=== PATIENT | female | born 1945 | race African-American/Black ===

== ENCOUNTER 2024-03-10 18:47 | Emergency (ER) | payer OTHER ==
--- OUTSIDE RECORDS SUMMARY | 2024-03-10 18:56 | XMS REPORT | Continuity of Care Document ---
Author Name Unknown Address [address] [place] [address] [facility] [address] [place] [address] Care Team Providers Care Casket Assembler Name Role Phone Coni Garcia MD Primary Care Physician + IVA MATAMOROS Attending Clinician Unavaila CONI Rosario Attending Clinician Unavailable CONI GARCIA Attending Clinician Unavailable Coni Garcia MD Attending Clinician + [phone] ADELAIDA SALCEDO Attending Clinician UnavailADELAIDA Mahan Attending Clinician UnavailMorena Thomas PA-C Attending Clinician + Adelaida Salcedo MD Attending Clinician + Lashonda Hui Attending Clinician + [phone] YEN JANE Attending Clinician Unavailable YEN JANE Attending Clinician Unavailable ABBI ALFARO Attending Clinician Unavailab ABBI Stevenson Attending Clinician Unavailab Adelaida Hodges MD Attending Clinician +[phone] Doctor Unassigned, Gordo Attending Clinician U navailable LASHONDA PRESLEY Attending Clinician Unavailable Santiago Morris Attending Clinician + SANTIAGO COLLINS Attending Clinician Unavailable JABARI CLAYTON Attending Clinician Unavail able JABARI CLAYTON Attending Clinician Unavail able Jabari Clayton MD Attending Clinician [phone] Shiloh PARIKH, Iva Srinivasan Attending Clinician + [phone] Lab, Ang - Db Attending Clinician Unavailable ANEMIGUELITO LEEANN Attending Clinician Unavailable Anemiguelito GEOPHYSICAL ENGINEER, Leeann Attending Clinician [phone] Tony RT, Audrey C Attending Clinician Unavailab le Therapist, [facility] Respiratory Attending Clinician U Nishant Vega MD Attending Clinician + [phone] NISHANT WEBSTER Attending Clinician Unavaila GEOFF Menjivar Attending Clinician Unavailable Geoff Shi DO Attending Clinician [phone] Sunni DOCKERY, Diana Rees Attending Clinician Unavail able VIRGIE REEDER Attending Clinician Unavailable Hopper PAC, Wandy S Attending Clinician [phone] Óscar Newell MD Attending Clinician +[phone] Virgie Reeder MD Attending Clinician +[phone] MOISES KIM Attending Clinician Unavailhamilton Kim MD, Moises Mendoza Attending Clinician +- [phone] DIMA GARNICA Attending Clinician Unavailable DIMA GARNICA Attending Clinician Unavailable Only, [facility] Test Attending Clinician Unavailable 2, [facility] Lab Attending Clinician Unavailable Dima Garnica DO Attending Clinician +[phone] BILLY AMBRIZ Attending Clinician UnavailBilly Cuevas MD Attending Clinician +- [phone] Jeane Driscoll MD Attending Clinician +[phone] JEANE DRISCOLL Attending Clinician UnavailChicho Cabrera MD Attending Clinician +[phone] Janusz Tobar MD Attending Clinician +[phone] , [facility] Surg Spec Procedure Attending Clinician Unavailable JANUSZ TOBAR Attending Clinician Unavailable Pob, [facility] Lab Main Attending Clinician Unavailhamilton brown Nurse, [facility] Surgery Faculty Attending Clinician U Trinidad Sadler Attending Clinician [phone] TRINIDAD MCDONALD Attending Clinician Unavailable Lab, Adc Fam Pob I Attending Clinician Unavailab le Tech, [facility] Sleep Lab Attending Clinician UnavailBrock Kenney Attending Clinician YEN JANE Admitting Clinician Unavailable ABBI ALFARO Admitting Clinician Unavailab IVA Jaramillo K.HYenifer Admitting Clinician Unavaila CONI Rosario Admitting Clinician Unavailable VIRGIE REEDER Admitting Clinician Unavailable Virgie Reeder MD Admitting Clinician YEN JANE Admitting Clinician Unavailable LEEANN WEBBER Admitting Clinician Unavailable ADELAIDA SALCEDO Admitting Clinician UnavailJEANE Moore Admitting Clinician Unavailsonia downs Payers Payer Name Policy Type Policy Number Effective Date Expirati on Date Source [employer] MEDICARE ADVANTAGE [id number] 2011 00:00:00 MED[place] [id number] 2020 00:00:00 Problems Condition Name Condition Details Condition Category Status Onset Date Resolution Date Last Treatment Date Treating Clinician Comments Source Suprathera peutic INR Suprathera peutic INR Disease Active 2021-07 00:00: 00 [facility] Wheezing Wheezing Disease Active 2021-07 00:00: 00 [facility] Fatty liver Fatty liver Disease Active 01-18 00:00: 00 [facility] Low TSH level Low TSH level Disease Active 01-08 00:00: 00 [facility] Microscopi c hematuria Microscopi c hematuria Disease Active 01-08 00:00: 00 [facility] Degenerati ve arthritis of right shoulder region Degenerati ve arthritis of right shoulder region Disease Active - 00:00: 00 [facility] Chronic pain of both shoulders Chronic pain of both shoulders Disease Active 3- 00:00: 00 [facility] Chronic pain of both shoulders Chronic pain of both shoulders Disease Active 3- 00:00: 00 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 Vitamin D deficiency Vitamin D deficiency Disease Active 5- 00:00: 00 [facility] Asthma Asthma Disease Active 03-17 00:00: 00 [facility] Essential hypertensi on Essential hypertensi on Disease Active 03-17 00:00: 00 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 Chronic pain of lower extremity Chronic pain of lower extremity Disease Active 03-17 00:00: 00 Overview: Formattin g of this note might be different from the original. Bilateral , intermitt ent [facility] GERD (gastroeso phageal reflux disease) GERD (gastroeso phageal reflux disease) Disease Active 03-17 00:00: 00 [facility] Hyperchole sterolemia Hyperchole sterolemia Disease Active 03-17 00:00: 00 [facility] Warfarin anticoagul ation Warfarin anticoagul ation Disease Active 03-17 00:00: 00 [facility] DUNCAN (obstructi ve sleep apnea) DUNCAN (obstructi ve sleep apnea) Disease Active [facility] Allergies, Adverse Reactions, Alerts Allergy Name Allergy Type Status Severity Reaction(s) Onset Date Inactive Date Treating Clinician Comments Source BENZONAT ATE DRUG INGREDI Active Dizziness 12-26 00:00: 00 [facility] Benzonat ate Propensi ty to adverse reaction s Active Dizziness 12-26 00:00: 00 [facility] LISINOPR IL DRUG INGREDI Active Other-Cmnt 07-31 00:00: 00 [facility] Lisinopr il Propensi ty to adverse reaction s Active Other - See comments 07-31 00:00: [address] [facility] TRAMADOL DRUG INGREDI Active SOB 4-20 00:00: 00 [facility] Tramadol Propensi ty to adverse reaction s Active Shortness of Breath 420 00:00: 00 [facility] ASPIRIN DRUG INGREDI Active Swelling 03-17 00:00: 00 [facility] PENICILL IN DRUG INGREDI Active Swelling 03-17 00:00: 00 [facility] Aspirin Propensi ty to adverse reaction s Active Swelling 03-17 00:00: 00 [facility] Penicill in Propensi ty to adverse reaction s Active Swelling 03-17 00:00: 00 [facility] Family History Family Member Diagnosis Comments Start Date Stop Date Sourc e Natural [facility] Natural sister Heart [facility] Natural brother Asthma [facility] Natural brother Heart [facility] Natural father Other - see comments [facility] Social History Social Habit Start Date Stop Date Quantity Comments Source Gender identity [facility] History of tobacco use Chews Tobacco [facility] History of Social function 2024-02-23 00:00:00 2024-02-23 00:00:00 [facility] Alcoholic beverage intake 2024-02-23 00:00:00 2024-02-23 00:00:00 0 /d [facility] Alcohol intake 2023-10-09 00:00:00 2023-10-09 00:00:00 0 /d [facility] Exposure to SARS-CoV-2 (event) 2022-10-19 00:00:00 2022-10-29 09:40:00 Not sure [facility] Tobacco use and exposure 2021-01-07 00:00:00 2021-01-07 00:00:00 User of smokeless tobacco [facility] Sex assigned at 1946 00:00:00 1946 00:00:00 [facility] Smoking Status Start Date Stop Date Source Never smoked tobacco [facility] Medications Ordered Medication Name Filled Medication Name Start Date Stop Date Current Medication? Ordering Clinician Indication Dosage Frequency Signature (SIG) Comments Components Source ROSUVASTATI N 40 mg tablet 03-02 00:00: 00 Yes [id number] 40mg TAKE 1 TABLET BY MOUTH AT BEDTIME [facility] baclofen 10 mg tablet 02-22 00:00: 00 Yes [id number] 5mg Take 0.5-1 tablets by mouth 3 (three) times daily as needed for Pain (scale 4-6) (May make sleepy, do not use before driving). [facility] triamcinolo ne acetonide (KENALOG) injection 40 mg 02-17 15:45: 00 02-17 15:41 :00 No [id number] 40mg 40 mg, Intramuscu lar, ONCE, 1 dose, On Thu02/18/24 at 1045, Routine [facility] OMEPRAZOLE 20 mg capsule 02-15 00:00: 00 Yes [id number] 20mg Take 1 capsule by mouth in the morning [facility] ALBUTEROL 90 mcg/actuati on inhaler 02-09 00:00: 00 Yes [id number] INHALE 2 PUFFS BY MOUTH EVERY 6 HOURS NEEDED FOR WHEEZING AND FOR SHORTNESS OF BREATH [facility] iopamidol (ISOVUE 370-500 mL) injection 75 mL 01-31 12:15: 00 01-31 12:15 :00 No [id number] 75mL 75 mL, Intravenou s, ONCE, 1 dose, On Thu02/01/24 at 0715, Routine [facility] FENTanyl PF (SUBLIMAZE (PF)) injection 50 mcg 01-31 11:15: 00 01-31 10:35 :00 No 50ug 50 mcg, Slow IV Push, ONCE, 1 dose, On Thu02/01/24 at 0615, Routine [facility] ondansetron (ZOFRAN (PF)) injection 4 mg 01-31 10:15: 00 01-31 10:34 :00 No 4mg 4 mg, Slow IV Push, ONCE, 1 dose, On Thu02/01/24 at 0515, BUCK [facility] HYDROcodone -acetaminop hen 10-325 mg tablet 15 00:00: 00 02-08 04:59 :00 Yes [id number] 1{tbl} Take 1 tablet by mouth every 6 (six) hours as needed for Pain (scale 7-10) for up to 7 days. Indication s: acute pain [facility] HYDROcodone -acetaminop hen (NORCO 5) 5-325 mg tablet 1 tablet 01-30 13:00: 00 01-30 13:01 :00 No 1{tbl} 1 tablet, Oral, ONCE, 1 dose, On Thu01/31/24 at 0800, [facility] methocarbam oL (ROBAXIN) tablet 1,000 mg 01-30 13:00: 00 01-30 13:01 :00 No 1000mg 1,000 mg, Oral, ONCE, 1 dose, On Thu01/31/24 at 0800, [facility] methocarbam oL 750 mg tablet 01-30 00:00: 00 02-22 00:00 :00 No [id number] 750mg Take 1 tablet by mouth every 6 (six) hours as needed for Pain (scale 1-3). [facility] ALBUTEROL 90 mcg/actuati on inhaler 01-18 00:00: 00 02-09 00:00 :00 No [id number] 2{puff} INHALE 2 PUFFS BY MOUTH EVERY 6 HOURS NEEDED FOR WHEEZING OR SHORTNESS OF BREATH [facility] FLUTICASONE -SALMETEROL 500-50 mcg/dose inhalation disk 4-25 00:00: 00 Yes [id number] INHALE 1 DOSE BY MOUTH EVERY [address] [facility] triamcinolo ne acetonide (KENALOG) injection 40 mg 3-22 16:00: 00 10-08 14:48 :00 No [id number] [address] [facility] OMEPRAZOLE 20 mg capsule 2-09 00:00: 00 02-15 00:00 :00 No [id number] 20mg Take 1 capsule by mouth in the morning [facility] azithromyci n 250 mg tablet 08-14 00:00: 00 Yes [id number] Take 500 mg PO day 1, then 250 mg PO days [address] [facility] methylPREDN ISolone (MEDROL, MESSI,) 4 mg tablets 08-14 00:00: 00 02-17 00:00 :00 No [id number] Take by mouth SEE-INSTRU CTIONS. follow package directions [facility] NIFEdipine ER 60 mg tablet 07-20 00:00: 00 Yes [id number] 60mg Take 1 tablet by mouth in the morning. [facility] pregabalin (LYRICA) 25 mg capsule 2022-07 00:00: 00 Yes [id number] Take 1 capsule by mouth every evening for 7 days, then 1 capsule by mouth twice a day for 7 days, then 1 capsule every morning and two capsules every evening [facility] apixaban 5 mg tablet 2022-07 00:00: 00 Yes 5mg Take 1 tablet by mouth in the morning and 1 tablet in the evening. Indication s: coronary artery ectasia [facility] triamcinolo ne acetonide (KENALOG) injection 40 mg 2022-07 15:30: 00 05-15 14:31 :00 No [id number] [address] [facility] albuterol 90 mcg/actuati on inhaler 2022-07 00:00: 00 Yes [id number] 2{puff} Inhale 2 Puffs every 6 (six) hours as needed for Wheezing or Shortness of Breath. [facility] rosuvastati n 40 mg tablet 03-12 00:00: 00 Yes [id number] 40mg Take 1 tablet by mouth at bedtime. [facility] gabapentin 100 mg capsule 03-12 00:00: 00 04-13 00:00 :00 No [id number] 100mg Take 1 capsule by mouth at bedtime. Then increase by one capsule each evening up to 4 capsules by mouth at bedtime for foot pain [facility] NIFEdipine ER 60 mg tablet 8-14 00:00: 00 06-29 00:00 :00 No [id number] 60mg Take 1 tablet by mouth in the morning. [facility] sodium hyaluronate (viscosup) (ORTHOVISC) injection 30 mg 02-11 22:15: 00 02-11 21:18 :[id number] [facility] triamcinolo ne acetonide (KENALOG) injection 40 mg 02-11 22:15: 00 02-11 21:27 :[id number] [facility] triamcinolo ne acetonide (KENALOG) injection 40 mg 02-05 14:45: 00 02-06 02:44 :[id number] [facility] triamcinolo ne acetonide (KENALOG) injection 40 mg 02-05 05:00: 00 02-05 16:59 :[id number] [facility] albuterol 90 mcg/actuati on inhaler 01-26 00:00: 00 04-13 00:00 :00 No [id number] 2{puff} Inhale 2 Puffs every 6 (six) hours as needed for Wheezing or Shortness of Breath. [facility] Fluticasone -Salmeterol 500-50 mcg/dose inhalation disk 12-26 00:00: 00 Yes [id number] 1{puff} Inhale 1 Puff every 12 (twelve) hours. DOSE INCREASE [facility] omeprazole 20 mg capsule 12-26 00:00: 00 08-28 00:00 :00 No [id number] 20mg Take 1 capsule by mouth in the morning. [facility] apixaban 5 mg tablet 12-26 00:00: 00 06-29 00:00 :00 No 5mg Take 1 tablet by mouth in the morning and 1 tablet in the evening. Indication s: coronary artery ectasia [facility] NIFEDIPINE ER 60 mg tablet -24 00:00: 00 12-26 00:00 :00 No [id number] 60mg TAKE 1 TABLET BY MOUTH IN THE MORNING [facility] triamcinolo ne acetonide (KENALOG) injection 40 mg 09-25 16:15: 00 09-25 15:13 :[id number] [facility] NIFEdipine ER 60 mg tablet - 00:00: 00 12-10 00:00 :00 No [id number] 60mg Take 1 tablet by mouth in the morning. [facility] omeprazole 20 mg capsule 09-12 00:00: 00 12-26 00:00 :00 No [id number] 20mg Take 1 capsule by mouth in the morning. [facility] hydroCHLORO thiazide 12.5 mg tablet - 00:00: 00 10-03 00:00 :00 No [id number] 12.5mg Take 1 tablet by mouth in the morning. [facility] predniSONE 10 mg tablet - 00:00: 00 09-12 00:00 :00 No [id number] Take four tablets daily for three days, take three tablets daily for three days, take two tablets daily for three days, take one tablet daily for three days [facility] Codeine-Gua ifenesin 10-200 mg/5 mL Liqd -12 00:00: 00 09-12 00:00 :00 No 5mL Take 5 mL by mouth every 6 (six) hours as needed for Cough. Indication s: Cough [facility] chlorthalid one 25 mg tablet 2021-07 00:00: 00 07-31 00:00 :00 No [id number] 12.5mg Take 0.5 tablets by mouth in the morning. [facility] Codeine-Gua ifenesin 10-200 mg/5 mL Liqd 2021-07- 00:00: 00 07-19 05:59 :00 No 5mL Take 5 mL by mouth every 6 (six) hours as needed for Cough for up to 7 days. Indication s: Cough [facility] chlorthalid one 25 mg tablet 2021-07 00:00: 00 07-11 00:00 :00 No [id number] 25mg Take 1 tablet by mouth in the morning. [facility] tranexamic acid (CYKLOKAPRO N) 1,000 mg in NaCl 0.9% (NS) 250 mL infusion 2021-07 23:00: 00 07-10 23:39 :00 No 16mg/kg /h 16 mg/kg/hr ?89.4 kg (357.6 mL/hr), IV Infusion, ONCE, 1 dose, On [facility] 07/10/22 at 1700, Routine [facility] dexamethaso ne sod phos PF injection 10 mg 2021-07 22:15: 00 07-10 22:32 :00 No 10mg 10 mg, Slow IV Push, ONCE, 1 dose, On [facility] 07/10/22 at 1615, [address] [facility] cloNIDine 0.1 mg tablet 2021-07 00:00: 00 07-11 00:00 :00 No [id number] .1mg Take 1 tablet by mouth in the morning and 1 tablet in the evening. [facility] apixaban 5 mg tablet 2021-07 00:00: 00 12-26 00:00 :00 No 5mg Take 1 tablet by mouth in the morning and 1 tablet in the evening. Indication s: coronary artery ectasia [facility] Fluticasone -Salmeterol 500-50 mcg/dose inhalation disk 2021-07 00:00: 00 12-26 00:00 :00 No [id number] 1{puff} Inhale 1 Puff every 12 (twelve) hours. DOSE INCREASE [facility] benzonatate 200 mg capsule 2021-07 00:00: 00 07-11 00:00 :00 No [id number] 200mg Take 1 capsule by mouth 3 (three) times daily as needed for Cough. [facility] cephALEXin (KEFLEX) 500 mg capsule 2021-07 00:00: 00 07-05 05:59 :00 No [id number] 500mg Take 1 capsule by mouth in the morning and 1 capsule at noon and 1 capsule in the evening. Do all this for [address] [facility] azithromyci n 250 mg tablet 2021-07 00:00: 00 07-04 05:59 :00 No [id number] 250mg Take 1 tablet by mouth in the morning for 6 days. Take 500 mg day 1, then 250 mg days [address] [facility] methylPREDN ISolone 4 mg tablets 2021-07 00:00: 00 07-04 05:59 :00 No [id number] Take by mouth SEE-INSTRU CTIONS for 6 days. follow package directions [facility] dextrometho cecil-jaden enesin (ROBITUSSIN DM) 10-100 mg/5 mL solution 5 mL 2021-07 18:45: 00 06-20 18:05 :00 No 5mL 5 mL, Oral, ONCE, 1 dose, On Thu06/20/22 at 1245, Routine [facility] multivitami n tablet 1 tablet 2021-07 18:00: 00 Yes 1{tbl} 1 tablet, Oral, DAILY, First dose on Thu06/20/22 at 1200, Until Discontinu ed, Routine [facility] KCL (KLOR-CON M20) tablet 40 mEq 2021-07 14:00: 00 Yes 40meq 40 mEq, Oral, BID, First dose on Thu06/20/22 at 0800, Until Discontinu ed, Routine [facility] acetaminoph en (TYLENOL) 325 mg tablet 2021-07 13:09: 03 06-20 00:00 :00 No Take by mouth every 6 (six) hours as needed. [facility] acetaminoph en (TYLENOL) tablet 650 mg 2021-07 03:21: 26 Yes 650mg 650 mg, Oral, Q6HPRN, Starting on Delmi 06/19/22 at 2121, Until Discontinu ed, Routine, Pain (scale 4-6) [facility] acetaminoph en 325 mg tablet 2021-07 00:00: 00 Yes Take by mouth every 6 (six) hours as needed. [facility] Cholecalcif jonny, Vitamin D3, 50 mcg (2,000 unit) capsule 2021-07 00:00: 00 Yes [id number] Take 1 capsule by mouth in the morning. Take with food. [facility] albuterol 2.5 mg /3 mL (0.083 %) nebulizer solution 2021-07 00:00: 00 Yes 2.5mg Inhale 3 mL every 4 (four) hours as needed for Wheezing or Shortness of Breath. Via nebulizer [facility] rosuvastati n 40 mg tablet 2021-07 00:00: 00 03-12 00:00 :00 No [id number] 40mg Take 1 tablet by mouth at bedtime. [facility] albuterol 90 mcg/actuati on inhaler 2021-07 00:00: 00 12-26 00:00 :00 No [id number] 2{puff} Inhale 2 Puffs every 6 (six) hours as needed for Wheezing or Shortness of Breath. [facility] amLODIPine 10 mg tablet 2021-07 00:00: 00 09-15 00:00 :00 No [id number] 10mg Take 1 tablet by mouth in the morning. [facility] omeprazole 20 mg capsule 2021-07 00:00: 00 09-12 00:00 :00 No [id number] 20mg Take 1 capsule by mouth in the morning. [facility] albuterol 2.5 mg/0.5 mL nebulizer solution 2021-07 00:00: 00 07-31 00:00 :00 No [id number] 2.5mg Inhale 0.5 mL every 6 (six) hours as needed for Wheezing. [facility] lisinopriL 30 mg tablet 2021-07 00:00: 00 07-10 00:00 :00 No [id number] 30mg Take 1 tablet by mouth in the morning. [facility] apixaban 5 mg tablet 2021-07 00:00: 00 06-30 00:00 :00 No 5mg Take 1 tablet by mouth in the morning and 1 tablet in the evening. Do all this for 30 days. Indication s: coronary artery ectasia [facility] Fluticasone -Salmeterol 500-50 mcg/dose inhalation disk 2021-07 00:00: 00 06-27 00:00 :00 No [id number] 1{puff} Inhale 1 Puff every 12 (twelve) hours. DOSE INCREASE [facility] lactulose (CEPHULAC) solution 15 mL 2021-07 15:00: 00 Yes 15mL 15 mL, Oral, DAILY, First dose (after last modificati on) on Delmi 06/19/22 at 0900, Until Discontinu ed, Routine [facility] rosuvastati n (CRESTOR) tablet 40 mg 2021-07 03:00: 00 Yes 40mg 40 mg, Oral, QHS, First dose on Thu06/18/22 at 2100, Until Discontinu ed, Routine [facility] iopamidol (ISOVUE 370-500 mL) injection 80 mL 2021-07 20:30: 00 06-18 20:30 :00 No [id number] 80mL 80 mL, Intravenou s, ONCE, 1 dose, On Thu06/18/22 at 1445, Routine [facility] bisacodyL (DULCOLAX) suppository 10 mg 2021-07 15:15: 00 06-18 16:52 :00 No 10mg 10 mg, Rectal, ONCE, 1 dose, On Thu06/18/22 at 0915, Routine [facility] lactulose (CEPHULAC) solution 45 mL 2021-07 14:30: 00 06-19 14:01 :29 No 45mL 45 mL, Oral, DAILY, First dose (after last modificati on) on Thu06/18/22 at 0830, Until Discontinu ed, Routine [facility] simethicone (GAS RELIEF (SIMETHICON E)) chewable tablet 80 mg 2021-07 14:19: 25 Yes 80mg 80 mg, Oral, Q6HPRN, Starting on Thu06/18/22 at 0819, Until Discontinu ed, Routine, Gas [facility] apixaban (ELIQUIS) tablet 5 mg 2021-07 02:00: 00 Yes 5mg 5 mg, Oral, BID, First dose on Thu06/17/22 at 2000, Until Discontinu ed, Routine
Indicatio ns: DVT/PE [facility] lactulose (CEPHULAC) solution 45 mL 2021-07 20:30: 00 06-18 14:19 :37 No 45mL 45 mL, Oral, DAILY, First dose (after last modificati on) on Thu06/17/22 at 1430, Until Discontinu ed, Routine [facility] bisacodyL (DULCOLAX) suppository 10 mg 2021-07 17:00: 00 06-17 16:54 :00 No 10mg 10 mg, Rectal, ONCE, 1 dose, On Thu06/17/22 at 1100, Routine [facility] HYDROcodone -acetaminop hen (NORCO) 10-325 mg tablet 1 tablet 2021-07 03:15: 00 06-17 02:20 :00 No 1{tbl} 1 tablet, Oral, ONCE, 1 dose, On Thu06/16/22 at 2115, Routine [facility] hydralAZINE (APRESOLINE ) injection 5 mg 2021-07 23:16: 05 Yes 5mg 5 mg, Slow IV Push, Q4HPRN, Starting on Thu06/16/22 at 1716, Until Discontinu ed, Routine, DBP=>100; SBP=>160 [facility] lidocaine (LIDODERM) 5 % (700 mg/patch) patch 1 Patch 2021-07 20:30: 00 06-17 07:40 :00 No 1{patch } 1 Patch, Topical, Administer over 12 Hours, ONCE, 1 dose, On Thu06/16/22 at 1430, Routine [facility] lisinopriL (PRINIVIL,Z ESTRIL) tablet 30 mg 2021-07 19:45: 00 Yes 30mg 30 mg, Oral, DAILY, First dose on Thu06/16/22 at 1345, Until Discontinu ed, Routine [facility] acetaminoph en-codeine (TYLENOL #3) 300-30 mg tablet 1 tablet 2021-07 19:20: 56 06-18 22:36 :14 No 1{tbl} 1 tablet, Oral, Q4HPRN, Starting on Thu06/16/22 at 1320, Until Thu06/18/22 at 1636, Routine, Pain (scale 4-6), Pain (scale 7-10) [facility] iopamidol (ISOVUE 300-100 mL) injection 200 mL 2021-07 18:38: 29 06-16 18:39 :00 No [id number] 200mL 200 mL, Intravenou s, TITRATE - FOR PROCEDURE USE, 1 dose, Starting on Thu06/16/22 at 1238, Until Thu06/16/22 at 1239, Routine, Surgery/Pr ocedure [facility] lidocaine 1% (PF) (XYLOCAINE) injection 2021-07 16:38: 37 Yes PRN, Starting on Thu06/16/22 at 1038, Until Discontinu ed, Routine [facility] midazolam (VERSED) injection 2021-07 16:31: 48 06-18 22:36 :32 No IV Push, PRN, Starting on Thu06/16/22 at 1031, Until Thu06/18/22 at 1636, Routine [facility] FENTanyl PF (SUBLIMAZE (PF)) injection 2021-07 16:31: 00 06-18 22:36 :23 No Slow IV Push, PRN, Starting on Thu06/16/22 at 1031, Until 06/18/22 at 1636, Routine [facility] phytonadion e (VITAMIN K) 10 mg in NaCl 0.9% (NS) piggyback 2021-07 14:30: 00 06-15 16:07 :00 No 10mg IV Piggyback, ONCE, 1 dose, On 06/15/22 at 0830, 50 mL [facility] acetaminoph en-codeine (TYLENOL #3) 300-30 mg tablet 1 tablet 2021-07 14:00: 00 06-18 17:17 :02 No 1{tbl} 1 tablet, Oral, Q8H, First dose (after last modificati on) on 06/15/22 at 0800, Until Discontinu ed, Routine [facility] acetaminoph en-codeine (TYLENOL #3) 300-30 mg tablet 1 tablet 2021-07 05:42: 47 06-15 13:48 :56 No 1{tbl} 1 tablet, Oral, Q4HPRN, Starting on 06/14/22 at 2342, Until 06/15/22 at 0748, Routine, Pain (scale 4-6) [facility] benzocaine- menthoL (CEPACOL SORE THROAT (MANUEL-MEN)) lozenge 1 Lozenge 2021-07 03:32: 18 Yes 1{lozen ge} 1 Lozenge, Oral, Q4HPRN, Starting on 06/14/22 at 2132, Until Discontinu ed, Routine, Sore throat, cough [facility] pantoprazol e (PROTONIX) EC tablet 40 mg 2021-07 03:15: 00 Yes 40mg 40 mg, Oral, BID, First dose on 06/14/22 at 2115, Until Discontinu ed, Routine [facility] famotidine (PEPCID AC) tablet 20 mg 2021-07 23:00: 00 06-15 03:00 :14 No 20mg 20 mg, Oral, BID, First dose on 06/14/22 at 1700, Until Discontinu ed, Routine [facility] maalox:diph enhydrAMINE :lidocaine 2 % viscous 1:1:1 (FIRST-MOUT HWASH BLM) oral suspension 15 mL 2021-07 22:54: 07 Yes 15mL 15 mL, Oral (Swish & Swallow), QDAILYPRN, Starting on 06/14/22 at 1654, Until Discontinu ed, Routine, Hx of acid reflux and ulcers [facility] cholecalcif jonny (vitamin D3) tablet 1,000 Units 2021-07 15:00: 00 Yes 1000U 1,000 Units, Oral, DAILY, First dose on 06/14/22 at 0900, Until Discontinu ed [facility] amLODIPine (NORVASC) tablet 10 mg 2021-07 15:00: 00 Yes 10mg 10 mg, Oral, DAILY, First dose on 06/14/22 at 0900, Until Discontinu ed, Routine [facility] lidocaine (LIDODERM) 5 % (700 mg/patch) patch 1 Patch 2021-07 15:00: 00 06-15 06:05 :00 No 1{patch } 1 Patch, Topical, Administer over 12 Hours, ONCE, 1 dose, On 06/14/22 at 0900, Routine [facility] polyethylen e glycol 3350 powder 17 g 2021-07 14:00: 00 Yes 17g 17 g, Oral, BID, First dose on 06/14/22 at 0800, Until Discontinu ed, Routine [facility] albuterol (PROVENTIL) 2.5 mg /3 mL (0.083 %) nebulizer solution 2.5 mg 2021-07 14:00: 00 Yes 2.5mg 2.5 mg, Inhalation , QID, First dose on 06/14/22 at 0800, Until Discontinu ed, Routine [facility] sodium chloride 7% (HYPER-LILIANA) nebulizer solution 4 mL 2021-07 14:00: 00 Yes 4mL 4 mL, Inhalation , BID, First dose on 06/14/22 at 0800, Until Discontinu ed, Routine [facility] budesonide- formoteroL (SYMBICORT) 160-4.5 mcg/actuati on inhaler 2 Puff 2021-07 14:00: 00 Yes 2{puff} 2 Puff, Inhalation , BID, First dose on 06/14/22 at 0800, Until Discontinu ed [facility] benzonatate (TESSALON PERLES) capsule 100 mg 2021-07 13:45: 00 06-15 02:38 :00 No 100mg 100 mg, Oral, Q8H, 3 doses, First dose on 06/14/22 at 0745, Last dose on 06/14/22 at 2200, Routine [facility] ipratropium -albuteroL (DUONEB) 0.5 mg-3 mg(2.5 mg base)/3 mL nebulizer solution 3 mL 2021-07 10:08: 28 Yes 3mL 3 mL, Inhalation , Q4HPRN, Starting on 06/14/22 at 0408, Until Discontinu ed, Routine, Wheezing, Shortness of Breath, Chest tightness [facility] glucagon (GLUCAGEN DIAGNOSTIC KIT) injection 1 mg 2021-07 10:07: 42 Yes 1mg 1 mg, Intramuscu lar, PRN, Starting on 06/14/22 at 0407, Until Discontinu ed, BUCK, Blood Glucose < or = 70 mg/dL and patient is unable to swallow or has mental changes. [facility] dextrose 50 % in water (D50W) injection 25 mL 2021-07 10:07: 42 Yes 25mL 25 mL, Slow IV Push, PRN, Starting on 06/14/22 at 0407, Until Discontinu ed, BUCK, Blood Glucose < or = 70 mg/dL and patient is unable to swallow or has mental status changes. [facility] iopamidol (ISOVUE 370-500 mL) injection 120 mL 2021-07 07:00: 00 06-13 18:00 :00 No [id number] 120mL 120 mL, Intravenou s, ONCE, 1 dose, On 06/14/22 at 0100, Routine [facility] HYDROcodone -acetaminop hen (NORCO) 10-325 mg tablet 1 tablet 2021-07 06:15: 00 06-14 05:23 :00 No 1{tbl} 1 tablet, Oral, ONCE, 1 dose, On Thu06/14/22 at 0015, Routine [facility] NaCl 0.9% (NS) bolus infusion 1,000 mL 2021-07 05:45: 00 06-14 07:04 :00 No 1000mL at 999 mL/hr, 1,000 mL, IV Infusion, ONCE, 1 dose, On Thu06/13/22 at 2345, STAT [facility] acetaminoph en (TYLENOL) 325 mg tablet 2021-07 04:31: 33 Yes Take by mouth every 6 (six) hours as needed. [facility] ondansetron (ZOFRAN (PF)) injection 4 mg 2021-07 04:15: 00 06-14 05:21 :00 No 4mg 4 mg, Slow IV Push, ONCE, 1 dose, On Thu06/13/22 at 2215, BUCK [facility] iopamidol (ISOVUE 370-500 mL) injection 75 mL 2021-07 02:15: 00 06-14 02:30 :00 No [id number] 75mL 75 mL, Intravenou s, ONCE, 1 dose, On Thu06/13/22 at 2030, Routine [facility] ipratropium -albuteroL (DUONEB) 0.5 mg-3 mg(2.5 mg base)/3 mL nebulizer solution 3 mL 2021-07 01:15: 00 06-14 00:12 :00 No 3mL 3 mL, Inhalation , ONCE, 1 dose, On Thu06/13/22 at 1915, Routine [facility] methylpredn isolone sod succ (SOLU-MEDRO L) injection 125 mg 2021-07 01:00: 00 06-14 00:55 :00 No 125mg 125 mg, Intravenou s, ONCE, 1 dose, On Thu06/13/22 at 1900, [address] [facility] albuterol (PROAIR HFA) 90 mcg/actuati on inhaler 2021-07 00:00: 00 06-20 00:00 :00 No [id number] 2{puff} Inhale 2 Puffs every 6 (six) hours as needed for Wheezing or Shortness of Breath. [facility] predniSONE 20 mg tablet 2021-07 00:00: 00 06-14 00:00 :00 No [id number] Days 1-4 take two tablets daily Days 5-8 take 1 tablet daily Days 9-12 take 1/[address] [facility] iopamidol (ISOVUE 370-500 mL) injection 74 mL 2021-07 16:15: 00 06-01 16:30 :00 No [id number] 74mL 74 mL, Intravenou s, ONCE, 1 dose, On 06/01/22 at 1030, Routine [facility] codeine-gua ifenesin (ROBITUSSIN AC) 10-100 mg/5 mL oral solution 10 mL 2021-07 15:45: 00 06-01 15:45 :00 No 10mL 10 mL, Oral, ONCE, 1 dose, On Thu06/01/22 at 0945, BUCK [facility] albuterol (PROVENTIL) 2.5 mg /3 mL (0.083 %) nebulizer solution 5 mg 2021-07 15:30: 00 06-01 15:37 :00 No 5mg 5 mg, Inhalation , ONCE, 1 dose, On Thu06/01/22 at 0930, STAT [facility] methylpredn isolone sod succ (SOLU-MEDRO L) injection 125 mg 2021-07 14:30: 00 06-01 13:40 :00 No 125mg 125 mg, Intravenou s, ONCE, 1 dose, On 06/01/22 at 0830, [address] [facility] ipratropium -albuteroL (DUONEB) 0.5 mg-3 mg(2.5 mg base)/3 mL nebulizer solution 6 mL 2021-07 14:00: 00 Yes 6mL 6 mL, Inhalation , QID, First dose on Thu06/01/22 at 0800, Until Discontinu ed, Routine [facility] albuterol (PROVENTIL) 2.5 mg /3 mL (0.083 %) nebulizer solution 5 mg 2021-07 13:45: 00 06-01 13:42 :00 No 5mg 5 mg, Inhalation , ONCE, 1 dose, On Thu06/01/22 at 0745, STAT [facility] sodium chloride (NS) injection 5 mL 2021-07 13:35: 32 Yes 5mL 5 mL, Intravenou s, PRN, Starting on Thu06/01/22 at 0735, Until Discontinu ed, Routine, IV line flushing [facility] codeine-gua ifenesin 10-100 mg/5 mL oral solution 2021-07 00:00: 00 06-09 05:59 :00 No [id number] 10mL Take 10 mL by mouth every 6 (six) hours as needed for Cough for up to 7 days. Indication s: acute pain [facility] predniSONE 20 mg tablet 2021-07 00:00: 00 06-03 00:00 :00 No [id number] TAKE ONE TABLET BY MOUTH DAILY [facility] triamcinolo ne acetonide (KENALOG) injection 40 mg 15 15:15: 00 04-03 14:23 :[id number] [facility] warfarin 2.5 mg tablet 8-16 00:00: 00 06-20 00:00 :00 No 1 tablet 6x/week 1/2 tablet 1x/week [facility] acetaminoph en (TYLENOL) 325 mg tablet 708 09:36: 03 Yes Take by mouth every 6 (six) hours as needed. [facility] tiotropium 18 mcg inhalation 5-06 00:00: 00 06-03 00:00 :00 No [id number] 18ug Inhale [address] [facility] amLODIPine 10 mg tablet 4-29 00:00: 00 06-20 00:00 :00 No [id number] 10mg Take 1 tablet by mouth daily. [facility] rosuvastati n 40 mg tablet 08-16 00:00: 00 06-20 00:00 :00 No [id number] 40mg Take 1 tablet by mouth at bedtime. [facility] lisinopriL 30 mg tablet 08-16 00:00: 00 06-20 00:00 :00 No [id number] 30mg Take 1 tablet by mouth daily. [facility] omeprazole 20 mg capsule 08-16 00:00: 00 06-20 00:00 :00 No [id number] 20mg Take 1 capsule by mouth daily. [facility] Fluticasone -Salmeterol (ADVAIR DISKUS) 500-50 mcg/dose inhalation disk 08-16 00:00: 00 06-20 00:00 :00 No [id number] 1{puff} Inhale 1 Puff every 12 (twelve) hours. DOSE INCREASE [facility] montelukast 10 mg tablet 08-16 00:00: 00 06-03 00:00 :00 No [id number] 10mg Take 1 tablet by mouth every evening. [facility] albuterol (PROAIR HFA) 90 mcg/actuati on inhaler 08-16 00:00: 00 06-03 00:00 :00 No [id number] 2{puff} Inhale 2 Puffs every 6 (six) hours as needed for Wheezing or Shortness of Breath. [facility] albuterol 2.5 mg/0.5 mL nebulizer solution 2020-07 227 00:00: 00 06-20 00:00 :00 No [id number] 2.5mg Inhale 0.5 mL every 6 (six) hours as needed for Wheezing. [facility] ergocalcife rol, vitamin d2, 1,250 mcg (50,000 unit) capsule 01-08 00:00: 00 06-03 00:00 :00 No [id number] Take 1 capsule by mouth weekly. Take with food. [facility] albuterol 2.5 mg /3 mL (0.083 %) nebulizer solution 01-07 00:00: 00 06-20 00:00 :00 No 2.5mg Inhale 3 mL every 4 (four) hours as needed for Wheezing or Shortness of Breath. Via nebulizer [facility] tiZANidine 2 mg tablet 4-13 00:00: 00 06-03 00:00 :00 No [id number] 2mg Take 1 tablet by mouth every 8 (eight) hours as needed (muscle pain or spasm). [facility] Cholecalcif jonny, Vitamin D3, (VITAMIN D3) 2,000 unit capsule 2017-07 0-16 00:00: 00 06-20 00:00 :00 No [id number] Take 1 capsule by mouth daily. Take with food. [facility] loratadine 10 mg tablet 7-09 00:00: 00 06-03 00:00 :00 No 10mg Take 1 tablet by mouth daily. [facility] Immunizations Ordered Immunization Name Filled Immunization Name Date Status Comments Source TDAP 2022-09-12 00:00:00 Completed [facility] TDAP 2022-09-12 00:00:00 Completed [facility] TDAP 2022-09-12 00:00:00 Completed [facility] TDAP 2022-09-12 00:00:00 Completed [facility] TDAP 2022-09-12 00:00:00 Completed [facility] TDAP 2022-09-12 00:00:00 Completed [facility] TDAP 2022-09-12 00:00:00 Completed [facility] TDAP 2022-09-12 00:00:00 Completed [facility] TDAP 2022-09-12 00:00:00 Completed [facility] TDAP 2022-09-12 00:00:00 Completed [facility] TDAP 2022-09-12 00:00:00 Completed [facility] TDAP 2022-09-12 00:00:00 Completed [facility] TDAP 2022-09-12 00:00:00 Completed [facility] TDAP 2022-09-12 00:00:00 Completed [facility] TDAP 2022-09-12 00:00:00 Completed [facility] TDAP 2022-09-12 00:00:00 Completed [facility] TDAP 2022-09-12 00:00:00 Completed [facility] TDAP 2022-09-12 00:00:00 Completed [facility] TDAP 2022-09-12 00:00:00 Completed [facility] TDAP 2022-09-12 00:00:00 Completed [facility] TDAP 2022-09-12 00:00:00 Completed [facility] TDAP 2022-09-12 00:00:00 Completed [facility] TDAP 2022-09-12 00:00:00 Completed [facility] TDAP 2022-09-12 00:00:00 Completed [facility] TDAP 2022-09-12 00:00:00 Completed [facility] TDAP 2022-09-12 00:00:00 Completed [facility] TDAP 2022-09-12 00:00:00 Completed [facility] TDAP 2022-09-12 00:00:00 Completed [facility] TDAP 2022-09-12 00:00:00 Completed [facility] TDAP 2022-09-12 00:00:00 Completed [facility] TDAP 2022-09-12 00:00:00 Completed [facility] TDAP 2022-09-12 00:00:00 Completed [facility] TDAP 2022-09-12 00:00:00 Completed [facility] TDAP 2022-09-12 00:00:00 Completed [facility] TDAP 2022-09-12 00:00:00 Completed [facility] TDAP 2022-09-12 00:00:00 Completed [facility] TDAP 2022-09-12 00:00:00 Completed [facility] TDAP 2022-09-12 00:00:00 Completed [facility] Pneumococcal Polysaccharide, PPSV23 (PNEUMOVAX) 2019-03-09 00:00:00 Completed [facility] Pneumococcal Polysaccharide, PPSV23 (PNEUMOVAX) 2019-03-09 00:00:00 Completed [facility] Pneumococcal Polysaccharide, PPSV23 (PNEUMOVAX) 2019-03-09 00:00:00 Completed [facility] Pneumococcal Polysaccharide, PPSV23 (PNEUMOVAX) 2019-03-09 00:00:00 Completed [facility] Pneumococcal Polysaccharide, PPSV23 (PNEUMOVAX) 2019-03-09 00:00:00 Completed [facility] Pneumococcal Polysaccharide, PPSV23 (PNEUMOVAX) 2019-03-09 00:00:00 Completed [facility] Pneumococcal Polysaccharide, PPSV23 (PNEUMOVAX) 2019-03-09 00:00:00 Completed [facility] Pneumococcal Polysaccharide, PPSV23 (PNEUMOVAX) 2019-03-09 00:00:00 Completed [facility] Pneumococcal Polysaccharide, PPSV23 (PNEUMOVAX) 2019-03-09 00:00:00 Completed [facility] Pneumococcal Polysaccharide, PPSV23 (PNEUMOVAX) 2019-03-09 00:00:00 Completed [facility] Pneumococcal Polysaccharide, PPSV23 (PNEUMOVAX) 2019-03-09 00:00:00 Completed [facility] Pneumococcal Polysaccharide, PPSV23 (PNEUMOVAX) 2019-03-09 00:00:00 Completed [facility] Pneumococcal Polysaccharide, PPSV23 (PNEUMOVAX) 2019-03-09 00:00:00 Completed [facility] Pneumococcal Polysaccharide, PPSV23 (PNEUMOVAX) 2019-03-09 00:00:00 Completed [facility] Pneumococcal Polysaccharide, PPSV23 (PNEUMOVAX) 2019-03-09 00:00:00 Completed [facility] Pneumococcal Polysaccharide, PPSV23 (PNEUMOVAX) 2019-03-09 00:00:00 Completed [facility] Pneumococcal Polysaccharide, PPSV23 (PNEUMOVAX) 2019-03-09 00:00:00 Completed [facility] Pneumococcal Polysaccharide, PPSV23 (PNEUMOVAX) 2019-03-09 00:00:00 Completed [facility] Pneumococcal Polysaccharide, PPSV23 (PNEUMOVAX) 2019-03-09 00:00:00 Completed [facility] Pneumococcal Polysaccharide, PPSV23 (PNEUMOVAX) 2019-03-09 00:00:00 Completed [facility] Pneumococcal Polysaccharide, PPSV23 (PNEUMOVAX) 2019-03-09 00:00:00 Completed [facility] Pneumococcal Polysaccharide, PPSV23 (PNEUMOVAX) 2019-03-09 00:00:00 Completed [facility] Pneumococcal Polysaccharide, PPSV23 (PNEUMOVAX) 2019-03-09 00:00:00 Completed [facility] Pneumococcal Polysaccharide, PPSV23 (PNEUMOVAX) 2019-03-09 00:00:00 Completed [facility] Pneumococcal Polysaccharide, PPSV23 (PNEUMOVAX) 2019-03-09 00:00:00 Completed [facility] Pneumococcal Polysaccharide, PPSV23 (PNEUMOVAX) 2019-03-09 00:00:00 Completed [facility] Pneumococcal Polysaccharide, PPSV23 (PNEUMOVAX) 2019-03-09 00:00:00 Completed [facility] Pneumococcal Polysaccharide, PPSV23 (PNEUMOVAX) 2019-03-09 00:00:00 Completed [facility] Pneumococcal Polysaccharide, PPSV23 (PNEUMOVAX) 2019-03-09 00:00:00 Completed [facility] Pneumococcal Polysaccharide, PPSV23 (PNEUMOVAX) 2019-03-09 00:00:00 Completed [facility] Pneumococcal Polysaccharide, PPSV23 (PNEUMOVAX) 2019-03-09 00:00:00 Completed [facility] Pneumococcal Polysaccharide, PPSV23 (PNEUMOVAX) 2019-03-09 00:00:00 Completed [facility] Pneumococcal Polysaccharide, PPSV23 (PNEUMOVAX) 2019-03-09 00:00:00 Completed [facility] Pneumococcal Polysaccharide, PPSV23 (PNEUMOVAX) 2019-03-09 00:00:00 Completed [facility] Pneumococcal Polysaccharide, PPSV23 (PNEUMOVAX) 2019-03-09 00:00:00 Completed [facility] Pneumococcal Polysaccharide, PPSV23 (PNEUMOVAX) 2019-03-09 00:00:00 Completed [facility] Pneumococcal Polysaccharide, PPSV23 (PNEUMOVAX) 2019-03-09 00:00:00 Completed [facility] Pneumococcal Polysaccharide, PPSV23 (PNEUMOVAX) 2019-03-09 00:00:00 Completed [facility] Pneumococcal Polysaccharide, PPSV23 (PNEUMOVAX) 2019-03-09 00:00:00 Completed [facility] Pneumococcal Polysaccharide, PPSV23 (PNEUMOVAX) 2019-03-09 00:00:00 Completed [facility] Pneumococcal Polysaccharide, PPSV23 (PNEUMOVAX) 2019-03-09 00:00:00 Completed [facility] Pneumococcal Polysaccharide, PPSV23 (PNEUMOVAX) 2019-03-09 00:00:00 Completed [facility] Pneumococcal Polysaccharide, PPSV23 (PNEUMOVAX) 2019-03-09 00:00:00 Completed [facility] Pneumococcal Polysaccharide, PPSV23 (PNEUMOVAX) 2019-03-09 00:00:00 Completed [facility] Pneumococcal Polysaccharide, PPSV23 (PNEUMOVAX) 2019-03-09 00:00:00 Completed [facility] Pneumococcal Polysaccharide, PPSV23 (PNEUMOVAX) 2019-03-09 00:00:00 Completed [facility] Pneumococcal Polysaccharide, PPSV23 (PNEUMOVAX) 2019-03-09 00:00:00 Completed [facility] Pneumococcal Polysaccharide, PPSV23 (PNEUMOVAX) 2019-03-09 00:00:00 Completed [facility] Pneumococcal Polysaccharide, PPSV23 (PNEUMOVAX) 2019-03-09 00:00:00 Completed [facility] Pneumococcal Polysaccharide, PPSV23 (PNEUMOVAX) 2019-03-09 00:00:00 Completed [facility] Pneumococcal Polysaccharide, PPSV23 (PNEUMOVAX) 2019-03-09 00:00:00 Completed [facility] Pneumococcal Polysaccharide, PPSV23 (PNEUMOVAX) 2019-03-09 00:00:00 Completed [facility] Pneumococcal Polysaccharide, PPSV23 (PNEUMOVAX) 2019-03-09 00:00:00 Completed [facility] Pneumococcal Polysaccharide, PPSV23 (PNEUMOVAX) 2019-03-09 00:00:00 Completed [facility] Pneumococcal Polysaccharide, PPSV23 (PNEUMOVAX) 2019-03-09 00:00:00 Completed [facility] Pneumococcal Polysaccharide, PPSV23 (PNEUMOVAX) 2019-03-09 00:00:00 Completed [facility] Pneumococcal Polysaccharide, PPSV23 (PNEUMOVAX) 2019-03-09 00:00:00 Completed [facility] Pneumococcal Polysaccharide, PPSV23 (PNEUMOVAX) 2019-03-09 00:00:00 Completed [facility] Pneumococcal Polysaccharide, PPSV23 (PNEUMOVAX) 2019-03-09 00:00:00 Completed [facility] Pneumococcal Polysaccharide, PPSV23 (PNEUMOVAX) 2019-03-09 00:00:00 Completed [facility] Pneumococcal Polysaccharide, PPSV23 (PNEUMOVAX) 2019-03-09 00:00:00 Completed [facility] Pneumococcal Polysaccharide, PPSV23 (PNEUMOVAX) 2019-03-09 00:00:00 Completed [facility] Pneumococcal Polysaccharide, PPSV23 (PNEUMOVAX) 2019-03-09 00:00:00 Completed [facility] Pneumococcal Polysaccharide, PPSV23 (PNEUMOVAX) 2019-03-09 00:00:00 Completed [facility] Pneumococcal Polysaccharide, PPSV23 (PNEUMOVAX) 2019-03-09 00:00:00 Completed [facility] Pneumococcal Polysaccharide, PPSV23 (PNEUMOVAX) 2019-03-09 00:00:00 Completed [facility] Pneumococcal Polysaccharide, PPSV23 (PNEUMOVAX) 2019-03-09 00:00:00 Completed [facility] Pneumococcal Polysaccharide, PPSV23 (PNEUMOVAX) 2019-03-09 00:00:00 Completed [facility] Pneumococcal Polysaccharide, PPSV23 (PNEUMOVAX) 2019-03-09 00:00:00 Completed [facility] Pneumococcal Polysaccharide, PPSV23 (PNEUMOVAX) 2019-03-09 00:00:00 Completed [facility] Pneumococcal Polysaccharide, PPSV23 (PNEUMOVAX) 2019-03-09 00:00:00 Completed [facility] Pneumococcal Polysaccharide, PPSV23 (PNEUMOVAX) 2019-03-09 00:00:00 Completed [facility] Pneumococcal Polysaccharide, PPSV23 (PNEUMOVAX) 2019-03-09 00:00:00 Completed [facility] Pneumococcal Polysaccharide, PPSV23 (PNEUMOVAX) 2019-03-09 00:00:00 Completed [facility] Pneumococcal Polysaccharide, PPSV23 (PNEUMOVAX) 2019-03-09 00:00:00 Completed [facility] Pneumococcal Polysaccharide, PPSV23 (PNEUMOVAX) 2019-03-09 00:00:00 Completed [facility] Pneumococcal 13 Conjugate, PCV13 (Prevnar 13) 2018-01-28 00:00:00 Completed [facility] Pneumococcal 13 Conjugate, PCV13 (Prevnar 13) 2018-01-28 00:00:00 Completed [facility] Pneumococcal 13 Conjugate, PCV13 (Prevnar 13) 2018-01-28 00:00:00 Completed [facility] Pneumococcal 13 Conjugate, PCV13 (Prevnar 13) 2018-01-28 00:00:00 Completed [facility] Pneumococcal 13 Conjugate, PCV13 (Prevnar 13) 2018-01-28 00:00:00 Completed [facility] Pneumococcal 13 Conjugate, PCV13 (Prevnar 13) 2018-01-28 00:00:00 Completed [facility] Pneumococcal 13 Conjugate, PCV13 (Prevnar 13) 2018-01-28 00:00:00 Completed [facility] Pneumococcal 13 Conjugate, PCV13 (Prevnar 13) 2018-01-28 00:00:00 Completed [facility] Pneumococcal 13 Conjugate, PCV13 (Prevnar 13) 2018-01-28 00:00:00 Completed [facility] Pneumococcal 13 Conjugate, PCV13 (Prevnar 13) 2018-01-28 00:00:00 [facility] [facility] P[facility] 13 Conjugate, PCV13 (Prevnar 13) 2018-01-28 00:00:00 Completed [facility] Pneumococcal 13 Conjugate, PCV13 (Prevnar 13) 2018-01-28 00:00:00 Completed [facility] Pneumococcal 13 Conjugate, PCV13 (Prevnar 13) 2018-01-28 00:00:00 Completed [facility] Pneumococcal 13 Conjugate, PCV13 (Prevnar 13) 2018-01-28 00:00:00 Completed [facility] Pneumococcal 13 Conjugate, PCV13 (Prevnar 13) 2018-01-28 00:00:00 Completed [facility] Pneumococcal 13 Conjugate, PCV13 (Prevnar 13) 2018-01-28 00:00:00 Completed [facility] Pneumococcal 13 Conjugate, PCV13 (Prevnar 13) 2018-01-28 00:00:00 Completed [facility] Pneumococcal 13 Conjugate, PCV13 (Prevnar 13) 2018-01-28 00:00:00 Completed [facility] Pneumococcal 13 Conjugate, PCV13 (Prevnar 13) 2018-01-28 00:00:00 Completed [facility] Pneumococcal 13 Conjugate, PCV13 (Prevnar 13) 2018-01-28 00:00:00 Completed [facility] Pneumococcal 13 Conjugate, PCV13 (Prevnar 13) 2018-01-28 00:00:00 Completed [facility] Pneumococcal 13 Conjugate, PCV13 (Prevnar 13) 2018-01-28 00:00:00 Completed [facility] Pneumococcal 13 Conjugate, PCV13 (Prevnar 13) 2018-01-28 00:00:00 Completed [facility] Pneumococcal 13 Conjugate, PCV13 (Prevnar 13) 2018-01-28 00:00:00 Completed [facility] Pneumococcal 13 Conjugate, PCV13 (Prevnar 13) 2018-01-28 00:00:00 Completed [facility] Pneumococcal 13 Conjugate, PCV13 (Prevnar 13) 2018-01-28 00:00:00 Completed [facility] Pneumococcal 13 Conjugate, PCV13 (Prevnar 13) 2018-01-28 00:00:00 Completed [facility] Pneumococcal 13 Conjugate, PCV13 (Prevnar 13) 2018-01-28 00:00:00 Completed [facility] Pneumococcal 13 Conjugate, PCV13 (Prevnar 13) 2018-01-28 00:00:00 Completed [facility] Pneumococcal 13 Conjugate, PCV13 (Prevnar 13) 2018-01-28 00:00:00 Completed [facility] Pneumococcal 13 Conjugate, PCV13 (Prevnar 13) 2018-01-28 00:00:00 Completed [facility] Pneumococcal 13 Conjugate, PCV13 (Prevnar 13) 2018-01-28 00:00:00 Completed [facility] Pneumococcal 13 Conjugate, PCV13 (Prevnar 13) 2018-01-28 00:00:00 Completed [facility] Pneumococcal 13 Conjugate, PCV13 (Prevnar 13) 2018-01-28 00:00:00 Completed [facility] Pneumococcal 13 Conjugate, PCV13 (Prevnar 13) 2018-01-28 00:00:00 Completed [facility] Pneumococcal 13 Conjugate, PCV13 (Prevnar 13) 2018-01-28 00:00:00 Completed [facility] Pneumococcal 13 Conjugate, PCV13 (Prevnar 13) 2018-01-28 00:00:00 Completed [facility] Pneumococcal 13 Conjugate, PCV13 (Prevnar 13) 2018-01-28 00:00:00 Completed [facility] Pneumococcal 13 Conjugate, PCV13 (Prevnar 13) 2018-01-28 00:00:00 Completed [facility] Pneumococcal 13 Conjugate, PCV13 (Prevnar 13) 2018-01-28 00:00:00 Completed [facility] Pneumococcal 13 Conjugate, PCV13 (Prevnar 13) 2018-01-28 00:00:00 Completed [facility] Pneumococcal 13 Conjugate, PCV13 (Prevnar 13) 2018-01-28 00:00:00 Completed [facility] Pneumococcal 13 Conjugate, PCV13 (Prevnar 13) 2018-01-28 00:00:00 Completed [facility] Pneumococcal 13 Conjugate, PCV13 (Prevnar 13) 2018-01-28 00:00:00 Completed [facility] Pneumococcal 13 Conjugate, PCV13 (Prevnar 13) 2018-01-28 00:00:00 Completed [facility] Pneumococcal 13 Conjugate, PCV13 (Prevnar 13) 2018-01-28 00:00:00 Completed [facility] Pneumococcal 13 Conjugate, PCV13 (Prevnar 13) 2018-01-28 00:00:00 Completed [facility] Pneumococcal 13 Conjugate, PCV13 (Prevnar 13) 2018-01-28 00:00:00 Completed [facility] Pneumococcal 13 Conjugate, PCV13 (Prevnar 13) 2018-01-28 00:00:00 Completed [facility] Pneumococcal 13 Conjugate, PCV13 (Prevnar 13) 2018-01-28 00:00:00 Completed [facility] Pneumococcal 13 Conjugate, PCV13 (Prevnar 13) 2018-01-28 00:00:00 Completed [facility] Pneumococcal 13 Conjugate, PCV13 (Prevnar 13) 2018-01-28 00:00:00 Completed [facility] Pneumococcal 13 Conjugate, PCV13 (Prevnar 13) 2018-01-28 00:00:00 Completed [facility] Pneumococcal 13 Conjugate, PCV13 (Prevnar 13) 2018-01-28 00:00:00 Completed [facility] Pneumococcal 13 Conjugate, PCV13 (Prevnar 13) 2018-01-28 00:00:00 Completed [facility] Pneumococcal 13 Conjugate, PCV13 (Prevnar 13) 2018-01-28 00:00:00 Completed [facility] Pneumococcal 13 Conjugate, PCV13 (Prevnar 13) 2018-01-28 00:00:00 Completed [facility] Pneumococcal 13 Conjugate, PCV13 (Prevnar 13) 2018-01-28 00:00:00 Completed [facility] Pneumococcal 13 Conjugate, PCV13 (Prevnar 13) 2018-01-28 00:00:00 Completed [facility] Pneumococcal 13 Conjugate, PCV13 (Prevnar 13) 2018-01-28 00:00:00 Completed [facility] Pneumococcal 13 Conjugate, PCV13 (Prevnar 13) 2018-01-28 00:00:00 Completed [facility] Pneumococcal 13 Conjugate, PCV13 (Prevnar 13) 2018-01-28 00:00:00 Completed [facility] Pneumococcal 13 Conjugate, PCV13 (Prevnar 13) 2018-01-28 00:00:00 Completed [facility] Pneumococcal 13 Conjugate, PCV13 (Prevnar 13) 2018-01-28 00:00:00 Completed [facility] Pneumococcal 13 Conjugate, PCV13 (Prevnar 13) 2018-01-28 00:00:00 Completed [facility] Pneumococcal 13 Conjugate, PCV13 (Prevnar 13) 2018-01-28 00:00:00 Completed [facility] Pneumococcal 13 Conjugate, PCV13 (Prevnar 13) 2018-01-28 00:00:00 Completed [facility] Pneumococcal 13 Conjugate, PCV13 (Prevnar 13) 2018-01-28 00:00:00 Completed [facility] Pneumococcal 13 Conjugate, PCV13 (Prevnar 13) 2018-01-28 00:00:00 Completed [facility] Pneumococcal 13 Conjugate, PCV13 (Prevnar 13) 2018-01-28 00:00:00 Completed [facility] Pneumococcal 13 Conjugate, PCV13 (Prevnar 13) 2018-01-28 00:00:00 Completed [facility] Pneumococcal 13 Conjugate, PCV13 (Prevnar 13) 2018-01-28 00:00:00 Completed [facility] Pneumococcal 13 Conjugate, PCV13 (Prevnar 13) 2018-01-28 00:00:00 Completed [facility] Pneumococcal 13 Conjugate, PCV13 (Prevnar 13) 2018-01-28 00:00:00 Completed [facility] Pneumococcal 13 Conjugate, PCV13 (Prevnar 13) 2018-01-28 00:00:00 Completed [facility] Pneumococcal 13 Conjugate, PCV13 (Prevnar 13) 2018-01-28 00:00:00 Completed [facility] Pneumococcal 13 Conjugate, PCV13 (Prevnar 13) Unknown Completed [facility] Pneumococcal Polysaccharide, PPSV23 (PNEUMOVAX) Unknown Completed [facility] TDAP Unknown Completed [facility] Pneumococcal 13 Conjugate, PCV13 (Prevnar 13) Unknown Completed [facility] Pneumococcal Polysaccharide, PPSV23 (PNEUMOVAX) Unknown Completed [facility] TDAP Unknown Completed [facility] Pneumococcal 13 Conjugate, PCV13 (Prevnar 13) Unknown Completed [facility] Pneumococcal Polysaccharide, PPSV23 (PNEUMOVAX) Unknown Completed [facility] TDAP Unknown Completed [facility] Pneumococcal 13 Conjugate, PCV13 (Prevnar 13) Unknown Completed [facility] Pneumococcal Polysaccharide, PPSV23 (PNEUMOVAX) Unknown Completed [facility] TDAP Unknown Completed [facility] Pneumococcal 13 Conjugate, PCV13 (Prevnar 13) Unknown Completed [facility] Pneumococcal Polysaccharide, PPSV23 (PNEUMOVAX) Unknown Completed [facility] TDAP Unknown Completed [facility] Pneumococcal 13 Conjugate, PCV13 (Prevnar 13) Unknown Completed [facility] Pneumococcal Polysaccharide, PPSV23 (PNEUMOVAX) Unknown Completed [facility] TDAP Unknown Completed [facility] Pneumococcal 13 Conjugate, PCV13 (Prevnar 13) Unknown Completed [facility] Pneumococcal Polysaccharide, PPSV23 (PNEUMOVAX) Unknown Completed [facility] TDAP Unknown Completed [facility] Pneumococcal 13 Conjugate, PCV13 (Prevnar 13) Unknown Completed [facility] Pneumococcal Polysaccharide, PPSV23 (PNEUMOVAX) Unknown Completed [facility] TDAP Unknown Completed [facility] Pneumococcal 13 Conjugate, PCV13 (Prevnar 13) Unknown Completed [facility] Pneumococcal Polysaccharide, PPSV23 (PNEUMOVAX) Unknown Completed [facility] TDAP Unknown Completed [facility] Pneumococcal 13 Conjugate, PCV13 (Prevnar 13) Unknown Completed [facility] Pneumococcal Polysaccharide, PPSV23 (PNEUMOVAX) Unknown Completed [facility] TDAP Unknown Completed [facility] Pneumococcal 13 Conjugate, PCV13 (Prevnar 13) Unknown Completed [facility] Pneumococcal Polysaccharide, PPSV23 (PNEUMOVAX) Unknown Completed [facility] TDAP Unknown Completed [facility] Pneumococcal 13 Conjugate, PCV13 (Prevnar 13) Unknown Completed [facility] Pneumococcal Polysaccharide, PPSV23 (PNEUMOVAX) Unknown Completed [facility] TDAP Unknown Completed [facility] Pneumococcal 13 Conjugate, PCV13 (Prevnar 13) Unknown Completed [facility] Pneumococcal Polysaccharide, PPSV23 (PNEUMOVAX) Unknown Completed [facility] TDAP Unknown Completed [facility] Pneumococcal 13 Conjugate, PCV13 (Prevnar 13) Unknown Completed [facility] Pneumococcal Polysaccharide, PPSV23 (PNEUMOVAX) Unknown Completed [facility] TDAP Unknown Completed [facility] Pneumococcal 13 Conjugate, PCV13 (Prevnar 13) Unknown Completed [facility] Pneumococcal Polysaccharide, PPSV23 (PNEUMOVAX) Unknown Completed [facility] TDAP Unknown Completed [facility] Pneumococcal 13 Conjugate, PCV13 (Prevnar 13) Unknown Completed [facility] Pneumococcal Polysaccharide, PPSV23 (PNEUMOVAX) Unknown Completed [facility] TDAP Unknown Completed [facility] Pneumococcal 13 Conjugate, PCV13 (Prevnar 13) Unknown Completed [facility] Pneumococcal Polysaccharide, PPSV23 (PNEUMOVAX) Unknown Completed [facility] TDAP Unknown Completed [facility] Pneumococcal 13 Conjugate, PCV13 (Prevnar 13) Unknown Completed [facility] Pneumococcal Polysaccharide, PPSV23 (PNEUMOVAX) Unknown Completed [facility] TDAP Unknown Completed [facility] Pneumococcal 13 Conjugate, PCV13 (Prevnar 13) Unknown Completed [facility] Pneumococcal Polysaccharide, PPSV23 (PNEUMOVAX) Unknown Completed [facility] TDAP Unknown Completed [facility] Pneumococcal 13 Conjugate, PCV13 (Prevnar 13) Unknown Completed [facility] Pneumococcal Polysaccharide, PPSV23 (PNEUMOVAX) Unknown Completed [facility] TDAP Unknown Completed [facility] Pneumococcal 13 Conjugate, PCV13 (Prevnar 13) Unknown Completed [facility] Pneumococcal Polysaccharide, PPSV23 (PNEUMOVAX) Unknown Completed [facility] TDAP Unknown Completed [facility] Pneumococcal 13 Conjugate, PCV13 (Prevnar 13) Unknown Completed [facility] Pneumococcal Polysaccharide, PPSV23 (PNEUMOVAX) Unknown Completed [facility] TDAP Unknown Completed [facility] Pneumococcal 13 Conjugate, PCV13 (Prevnar 13) Unknown Completed [facility] Pneumococcal Polysaccharide, PPSV23 (PNEUMOVAX) Unknown Completed [facility] TDAP Unknown Completed [facility] Pneumococcal 13 Conjugate, PCV13 (Prevnar 13) Unknown Completed [facility] Pneumococcal Polysaccharide, PPSV23 (PNEUMOVAX) Unknown Completed [facility] TDAP Unknown Completed [facility] Pneumococcal 13 Conjugate, PCV13 (Prevnar 13) Unknown Completed [facility] Pneumococcal Polysaccharide, PPSV23 (PNEUMOVAX) Unknown Completed [facility] TDAP Unknown Completed [facility] Pneumococcal 13 Conjugate, PCV13 (Prevnar 13) Unknown Completed [facility] Pneumococcal Polysaccharide, PPSV23 (PNEUMOVAX) Unknown Completed [facility] TDAP Unknown Completed [facility] Pneumococcal 13 Conjugate, PCV13 (Prevnar 13) Unknown Completed [facility] Pneumococcal Polysaccharide, PPSV23 (PNEUMOVAX) Unknown Completed [facility] TDAP Unknown Completed [facility] Pneumococcal 13 Conjugate, PCV13 (Prevnar 13) Unknown Completed [facility] Pneumococcal Polysaccharide, PPSV23 (PNEUMOVAX) Unknown Completed [facility] TDAP Unknown Completed [facility] Pneumococcal 13 Conjugate, PCV13 (Prevnar 13) Unknown Completed [facility] Pneumococcal Polysaccharide, PPSV23 (PNEUMOVAX) Unknown Completed [facility] TDAP Unknown Completed [facility] Pneumococcal 13 Conjugate, PCV13 (Prevnar 13) Unknown Completed [facility] Pneumococcal Polysaccharide, PPSV23 (PNEUMOVAX) Unknown Completed [facility] TDAP Unknown Completed [facility] Pneumococcal 13 Conjugate, PCV13 (Prevnar 13) Unknown Completed [facility] Pneumococcal Polysaccharide, PPSV23 (PNEUMOVAX) Unknown Completed [facility] TDAP Unknown Completed [facility] Pneumococcal 13 Conjugate, PCV13 (Prevnar 13) Unknown Completed [facility] Pneumococcal Polysaccharide, PPSV23 (PNEUMOVAX) Unknown Completed [facility] TDAP Unknown Completed [facility] Pneumococcal 13 Conjugate, PCV13 (Prevnar 13) Unknown Completed [facility] Pneumococcal Polysaccharide, PPSV23 (PNEUMOVAX) Unknown Completed [facility] TDAP Unknown Completed [facility] Pneumococcal 13 Conjugate, PCV13 (Prevnar 13) Unknown Completed [facility] Pneumococcal Polysaccharide, PPSV23 (PNEUMOVAX) Unknown Completed [facility] TDAP Unknown Completed [facility] Pneumococcal 13 Conjugate, PCV13 (Prevnar 13) Unknown Completed [facility] Pneumococcal Polysaccharide, PPSV23 (PNEUMOVAX) Unknown Completed [facility] TDAP Unknown Completed [facility] Pneumococcal 13 Conjugate, PCV13 (Prevnar 13) Unknown Completed [facility] Pneumococcal Polysaccharide, PPSV23 (PNEUMOVAX) Unknown Completed [facility] TDAP Unknown Completed [facility] Vital Signs Vital Name Observation Time Observation Value Comments S ource Systolic blood pressure 2024-02-23 15:14:00 130 mm[Hg] [facility] Diastolic blood pressure 2024-02-23 15:14:00 72 mm[Hg] [facility] Heart rate 2024-02-23 15:14:00 75 /min [facility] Body height 2024-02-23 15:14:00 162.6 cm [facility] Body weight 2024-02-23 15:14:00 78.744 kg [facility] BMI 2024-02-23 15:14:00 29.80 kg/m2 [facility] Oxygen saturation in Arterial blood by Pulse oximetry 2024-02-23 15:14:00 97 /min [facility] Body height 2024-02-18 14:38:00 162.6 cm [facility] Body weight 2024-02-18 14:38:00 78.971 kg [facility] BMI 2024-02-18 14:38:00 29.88 kg/m2 [facility] Systolic blood pressure 2024-02-01 12:00:00 173 mm[Hg] [facility] Diastolic blood pressure 2024-02-01 12:00:00 81 mm[Hg] [facility] Heart rate 2024-02-01 12:00:00 67 /min [facility] Body temperature 2024-02-01 12:00:00 36.72 Selena [facility] Respiratory rate 2024-02-01 12:00:00 16 /min [facility] Oxygen saturation in Arterial blood by Pulse oximetry 2024-02-01 12:00:00 99 /min [facility] Body height 2024-02-01 09:06:00 162.6 cm [facility] Body weight 2024-02-01 09:06:00 79.833 kg [facility] BMI 2024-02-01 09:06:00 30.21 kg/m2 [facility] Systolic blood pressure 2024-01-31 12:38:00 148 mm[Hg] [facility] Diastolic blood pressure 2024-01-31 12:38:00 82 mm[Hg] [facility] Heart rate 2024-01-31 12:38:00 81 /min [facility] Body temperature 2024-01-31 12:38:00 37.22 Selena [facility] Respiratory rate 2024-01-31 12:38:00 16 /min [facility] Body height 2024-01-31 12:38:00 162.6 cm [facility] Body weight 2024-01-31 12:38:00 79.833 kg [facility] BMI 2024-01-31 12:38:00 30.21 kg/m2 [facility] Oxygen saturation in Arterial blood by Pulse oximetry 2024-01-31 12:38:00 100 /min [facility] Body height 2023-10-09 13:55:00 162.6 cm [facility] Body weight 2023-10-09 13:55:00 83.054 kg [facility] BMI 2023-10-09 13:55:00 31.43 kg/m2 [facility] Systolic blood pressure 2023-08-14 15:12:00 141 mm[Hg] [facility] Diastolic blood pressure 2023-08-14 15:12:00 89 mm[Hg] [facility] Heart rate 2023-08-14 15:12:00 82 /min [facility] Oxygen saturation in Arterial blood by Pulse oximetry 2023-08-14 15:12:00 98 /min [facility] Body height 2023-08-14 15:11:00 162.6 cm [facility] Body weight 2023-08-14 15:11:00 82.283 kg [facility] BMI 2023-08-14 15:11:00 31.14 kg/m2 [facility] Systolic blood pressure 2023-06-29 15:36:00 127 mm[Hg] [facility] Diastolic blood pressure 2023-06-29 15:36:00 81 mm[Hg] [facility] Heart rate 2023-06-29 15:35:00 75 /min [facility] Body height 2023-06-29 15:35:00 162.6 cm [facility] Body weight 2023-06-29 15:35:00 82.918 kg [facility] BMI 2023-06-29 15:35:00 31.38 kg/m2 [facility] Oxygen saturation in Arterial blood by Pulse oximetry 2023-06-29 15:35:00 97 /min [facility] Systolic blood pressure 2023-05-15 13:41:00 132 mm[Hg] [facility] Diastolic blood pressure 2023-05-15 13:41:00 72 mm[Hg] [facility] Heart rate 2023-05-15 13:40:00 81 /min [facility] Body height 2023-05-15 13:40:00 162.6 cm [facility] Body weight 2023-05-15 13:40:00 83.915 kg [facility] BMI 2023-05-15 13:40:00 31.76 kg/m2 [facility] Systolic blood pressure 2023-05-11 15:36:00 131 mm[Hg] [facility] Diastolic blood pressure 2023-05-11 15:36:00 81 mm[Hg] [facility] Heart rate 2023-05-11 15:36:00 76 /min [facility] Body height 2023-05-11 15:36:00 162.6 cm [facility] Body weight 2023-05-11 15:36:00 84.46 kg [facility] BMI 2023-05-11 15:36:00 31.96 kg/m2 [facility] Oxygen saturation in Arterial blood by Pulse oximetry 2023-05-11 15:36:00 98 /min [facility] Systolic blood pressure 2023-04-30 14:37:00 136 mm[Hg] [facility] Diastolic blood pressure 2023-04-30 14:37:00 85 mm[Hg] [facility] Heart rate 2023-04-30 14:37:00 77 /min [facility] Body height 2023-04-30 14:37:00 162.6 cm [facility] Body weight 2023-04-30 14:37:00 84.006 kg [facility] BMI 2023-04-30 14:37:00 31.79 kg/m2 [facility] Oxygen saturation in Arterial blood by Pulse oximetry 2023-04-30 14:37:00 95 /min [facility] Systolic blood pressure 2023-04-13 15:16:00 124 mm[Hg] [facility] Diastolic blood pressure 2023-04-13 15:16:00 83 mm[Hg] [facility] Heart rate 2023-04-13 15:16:00 75 /min [facility] Body temperature 2023-04-13 15:16:00 36.44 Selena [facility] Body height 2023-04-13 15:16:00 162.6 cm [facility] Body weight 2023-04-13 15:16:00 84.414 kg [facility] BMI 2023-04-13 15:16:00 31.94 kg/m2 [facility] Oxygen saturation in Arterial blood by Pulse oximetry 2023-04-13 15:16:00 98 /min [facility] Systolic blood pressure 2023-03-12 14:31:00 137 mm[Hg] [facility] Diastolic blood pressure 2023-03-12 14:31:00 84 mm[Hg] [facility] Heart rate 2023-03-12 14:31:00 80 /min [facility] Body height 2023-03-12 14:31:00 162.6 cm [facility] Body weight 2023-03-12 14:31:00 85.004 kg [facility] BMI 2023-03-12 14:31:00 32.17 kg/m2 [facility] Oxygen saturation in Arterial blood by Pulse oximetry 2023-03-12 14:31:00 98 /min [facility] Systolic blood pressure 2023-02-05 13:44:00 136 mm[Hg] [facility] Diastolic blood pressure 2023-02-05 13:44:00 84 mm[Hg] [facility] Heart rate 2023-02-05 13:44:00 71 /min [facility] Body height 2023-02-05 13:44:00 162.6 cm [facility] Body weight 2023-02-05 13:44:00 86.274 kg [facility] BMI 2023-02-05 13:44:00 32.65 kg/m2 [facility] Systolic blood pressure 2022-12-26 14:55:00 133 mm[Hg] [facility] Diastolic blood pressure 2022-12-26 14:55:00 83 mm[Hg] [facility] Heart rate 2022-12-26 14:55:00 83 /min [facility] Body height 2022-12-26 14:55:00 162.6 cm [facility] Body weight 2022-12-26 14:55:00 86.32 kg [facility] BMI 2022-12-26 14:55:00 32.66 kg/m2 [facility] Oxygen saturation in Arterial blood by Pulse oximetry 2022-12-26 14:55:00 98 /min [facility] Systolic blood pressure 2022-10-29 15:31:00 162 mm[Hg] [facility] Diastolic blood pressure 2022-10-29 15:31:00 96 mm[Hg] [facility] Heart rate 2022-10-29 15:31:00 74 /min [facility] Body height 2022-10-29 15:31:00 162.6 cm [facility] Body weight 2022-10-29 15:31:00 86.274 kg [facility] BMI 2022-10-29 15:31:00 32.65 kg/m2 [facility] Oxygen saturation in Arterial blood by Pulse oximetry 2022-10-29 15:31:00 97 /min [facility] Systolic blood pressure 2022-10-03 15:07:00 130 mm[Hg] using patients home monitor [facility] Diastolic blood pressure 2022-10-03 15:07:00 88 mm[Hg] using patients home monitor [facility] Heart rate 2022-10-03 14:52:00 81 /min [facility] Body temperature 2022-10-03 14:52:00 36.33 Selena [facility] Respiratory rate 2022-10-03 14:52:00 18 /min [facility] Body height 2022-10-03 14:52:00 162.6 cm [facility] Body weight 2022-10-03 14:52:00 87.726 kg [facility] BMI 2022-10-03 14:52:00 33.20 kg/m2 [facility] Oxygen saturation in Arterial blood by Pulse oximetry 2022-10-03 14:52:00 96 /min [facility] Body height 2022-09-25 15:10:00 162.6 cm [facility] Body weight 2022-09-25 15:10:00 87.544 kg [facility] BMI 2022-09-25 15:10:00 33.13 kg/m2 [facility] Systolic blood pressure 2022-09-12 15:42:00 160 mm[Hg] [facility] Diastolic blood pressure 2022-09-12 15:42:00 89 mm[Hg] [facility] Heart rate 2022-09-12 15:41:00 83 /min [facility] Body temperature 2022-09-12 15:41:00 36.94 Selena [facility] Body weight 2022-09-12 15:41:00 87.907 kg [facility] BMI 2022-09-12 15:41:00 33.27 kg/m2 [facility] Oxygen saturation in Arterial blood by Pulse oximetry 2022-09-12 15:41:00 98 /min [facility] Systolic blood pressure 2022-08-07 17:12:00 149 mm[Hg] [facility] Diastolic blood pressure 2022-08-07 17:12:00 80 mm[Hg] [facility] Heart rate 2022-08-07 17:11:00 79 /min [facility] Body temperature 2022-08-07 17:11:00 36.72 Selena [facility] Body height 2022-08-07 17:11:00 162.6 cm [facility] Body weight 2022-08-07 17:11:00 87.998 kg [facility] BMI 2022-08-07 17:11:00 33.30 kg/m2 [facility] Oxygen saturation in Arterial blood by Pulse oximetry 2022-08-07 17:11:00 97 /min [facility] Systolic blood pressure 2022-07-31 19:05:00 134 mm[Hg] [facility] Diastolic blood pressure 2022-07-31 19:05:00 80 mm[Hg] [facility] Heart rate 2022-07-31 19:04:00 78 /min [facility] Body temperature 2022-07-31 19:04:00 37.11 Selena [facility] Body height 2022-07-31 19:04:00 162.6 cm [facility] Body weight 2022-07-31 19:04:00 86.637 kg [facility] BMI 2022-07-31 19:04:00 32.79 kg/m2 [facility] Oxygen saturation in Arterial blood by Pulse oximetry 2022-07-31 19:04:00 94 /min [facility] Systolic blood pressure 2022-07-11 15:57:00 144 mm[Hg] [facility] Diastolic blood pressure 2022-07-11 15:57:00 79 mm[Hg] [facility] Heart rate 2022-07-11 15:56:00 85 /min [facility] Body temperature 2022-07-11 15:56:00 37.33 Selena [facility] Body height 2022-07-11 15:56:00 162.6 cm [facility] Body weight 2022-07-11 15:56:00 89.359 kg [facility] BMI 2022-07-11 15:56:00 33.81 kg/m2 [facility] Oxygen saturation in Arterial blood by Pulse oximetry 2022-07-11 15:56:00 96 /min [facility] Systolic blood pressure 2022-07-11 00:00:00 145 mm[Hg] [facility] Diastolic blood pressure 2022-07-11 00:00:00 79 mm[Hg] [facility] Heart rate 2022-07-11 00:00:00 79 /min [facility] Respiratory rate 2022-07-11 00:00:00 18 /min [facility] Oxygen saturation in Arterial blood by Pulse oximetry 2022-07-11 00:00:00 97 /min [facility] Body temperature 2022-07-10 21:45:00 37.39 Selena [facility] Body height 2022-07-10 21:45:00 162.6 cm [facility] Body weight 2022-07-10 21:45:00 89.359 kg [facility] BMI 2022-07-10 21:45:00 33.81 kg/m2 [facility] Systolic blood pressure 2022-06-30 19:48:00 133 mm[Hg] [facility] Diastolic blood pressure 2022-06-30 19:48:00 81 mm[Hg] [facility] Heart rate 2022-06-30 19:48:00 93 /min [facility] Body height 2022-06-30 19:48:00 162.6 cm [facility] Body weight 2022-06-30 19:48:00 89.359 kg [facility] BMI 2022-06-30 19:48:00 33.81 kg/m2 [facility] Oxygen saturation in Arterial blood by Pulse oximetry 2022-06-30 19:48:00 95 /min [facility] Systolic blood pressure 2022-06-27 17:15:00 160 mm[Hg] [facility] Diastolic blood pressure 2022-06-27 17:15:00 83 mm[Hg] [facility] Heart rate 2022-06-27 17:05:00 87 /min [facility] Body height 2022-06-27 17:05:00 162.6 cm [facility] Body weight 2022-06-27 17:05:00 88.27 kg [facility] BMI 2022-06-27 17:05:00 33.40 kg/m2 [facility] Oxygen saturation in Arterial blood by Pulse oximetry 2022-06-27 17:05:00 97 /min [facility] Heart rate 2022-06-20 19:07:00 92 /min [facility] Respiratory rate 2022-06-20 19:07:00 18 /min [facility] Oxygen saturation in Arterial blood by Pulse oximetry 2022-06-20 19:07:00 94 /min [facility] Systolic blood pressure 2022-06-20 17:02:00 124 mm[Hg] [facility] Diastolic blood pressure 2022-06-20 17:02:00 61 mm[Hg] [facility] Body temperature 2022-06-20 17:02:00 36.39 Selena [facility] Body height 2022-06-14 09:55:00 162.6 cm [facility] Body weight 2022-06-13 23:42:00 90.719 kg [facility] BMI 2022-06-13 23:42:00 34.33 kg/m2 [facility] Systolic blood pressure 2022-06-03 21:37:00 123 mm[Hg] [facility] Diastolic blood pressure 2022-06-03 21:37:00 80 mm[Hg] [facility] Heart rate 2022-06-03 21:37:00 75 /min [facility] Body temperature 2022-06-03 21:37:00 37.06 Selena [facility] Body height 2022-06-03 21:37:00 162.6 cm [facility] Body weight 2022-06-03 21:37:00 90.719 kg [facility] BMI 2022-06-03 21:37:00 34.33 kg/m2 [facility] Oxygen saturation in Arterial blood by Pulse oximetry 2022-06-03 21:37:00 96 /min [facility] Systolic blood pressure 2022-06-01 17:00:00 153 mm[Hg] [facility] Diastolic blood pressure 2022-06-01 17:00:00 86 mm[Hg] [facility] Heart rate 2022-06-01 17:00:00 87 /min [facility] Respiratory rate 2022-06-01 17:00:00 17 /min [facility] Oxygen saturation in Arterial blood by Pulse oximetry 2022-06-01 17:00:00 92 /min [facility] Body temperature 2022-06-01 13:34:00 37.56 Selena [facility] Body weight 2022-06-01 13:34:00 86.183 kg [facility] BMI 2022-06-01 13:34:00 32.61 kg/m2 [facility] Systolic blood pressure 2022-04-03 13:40:00 153 mm[Hg] [facility] Diastolic blood pressure 2022-04-03 13:40:00 81 mm[Hg] [facility] Heart rate 2022-04-03 13:40:00 81 /min [facility] Body height 2022-04-03 13:40:00 162.6 cm [facility] Body weight 2022-04-03 13:40:00 87.544 kg [facility] BMI 2022-04-03 13:40:00 33.13 kg/m2 [facility] Oxygen saturation in Arterial blood by Pulse oximetry 2022-04-03 13:40:00 100 /min [facility] Systolic blood pressure 2022-06-18 13:56:00 125 mm[Hg] [facility] Diastolic blood pressure 2022-06-18 13:56:00 79 mm[Hg] [facility] Heart rate 2022-06-18 13:56:00 89 /min [facility] Body temperature 2022-06-18 13:56:00 36.56 Selena [facility] Respiratory rate 2022-06-18 13:56:00 24 /min [facility] Oxygen saturation in Arterial blood by Pulse oximetry 2022-06-18 13:56:00 94 /min [facility] Body height 2022-06-14 09:55:00 162.6 cm [facility] Body weight 2022-06-13 23:42:00 90.719 kg [facility] BMI 2022-06-13 23:42:00 34.33 kg/m2 [facility] Procedures Procedure Date / Time Performed Performing Clinician Source CT THORAX W CONTRAST 2024-02-01 11:22:21 Apollo Jane i [facility] BASIC METABOLIC PANEL (NA, K, CL, CO2, GLUCOSE, BUN, CREATININE, CA) 2024-02-01 10:21:00 Yen Jane [facility] CBC WITH DIFF 2024-02-01 10:21:00 Yen Jane [facility] URINALYSIS 2024-02-01 09:14:00 Yen Jane [facility] XR SPINE THORACIC 2 VW 2024-01-31 13:17:00 Terrance Alfaro [facility] PATIENT FINANCIAL POLICY 2023-10-09 13:48:38 Doctor Unassigned, Gordo [facility] XR CHEST 2 VW 2023-08-14 16:10:31 Lashonda Presley [facility] POCT SARS-COV-2 ANTIGEN (BINAX NOW) 2023-08-14 16:09:00 Lashonda Presley [facility] REFERRAL- REQUEST/RESPONSE 2023-06-05 06:01:00 Doctor Unassigned, Gordo [facility] TRANSTHORACIC ECHO (TTE) COMPLETE 2023-04-21 15:01:29 Iva Matamoros [facility] ASSIGNMENT OF BENEFITS 2023-01-19 13:07:30 Docto r Unassigned, Gordo [facility] DEXA AXIAL (HIP AND SPINE) 2023-01-06 15:28:58 Coni Garcia [facility] ASSIGNMENT OF BENEFITS 2022-10-29 14:42:55 Docto r Unassigned, Gordo [facility] CONSENT/REFUSAL FOR DIAGNOSIS AND TREATMENT 2022-10-29 14:42:26 Doctor Unassigned, Gordo [facility] MEDICAL RELEASE/CLEARANCE FORMS 2022-10-06 05:01:00 Doctor Unassigned, Gordo [facility] PATIENT FINANCIAL POLICY 2022-09-25 15:08:12 Doctor Unassigned, Gordo [facility] BASIC METABOLIC PANEL (NA, K, CL, CO2, GLUCOSE, BUN, CREATININE, CA) 2022-09-12 16:17:00 Coni Garcia [facility] TDAP VACCINE, >11 YRS, IM 2022-09-12 15:59:41 Perri Garcia [facility] POWER OF SAUSAGE LINKER 2022-08-01 06:01:00 Doctor Gabby ssigned, Gordo [facility] CONSENT/REFUSAL FOR DIAGNOSIS AND TREATMENT 2022-07-10 21:36:58 Doctor Unassigned, Gordo [facility] BASIC METABOLIC PANEL (NA, K, CL, CO2, GLUCOSE, BUN, CREATININE, CA) 2022-06-20 10:11:00 Darrick Patito [facility] CBC WITH DIFF 2022-06-20 10:11:00 Darrick Patito [facility] MAGNESIUM 2022-06-19 10:46:00 Patito Hollingsworth [facility] BASIC METABOLIC PANEL (NA, K, CL, CO2, GLUCOSE, BUN, CREATININE, CA) 2022-06-19 10:46:00 Darrick Patito [facility] CBC WITH DIFF 2022-06-19 10:46:[address] Dar[address] [facility] [address] ABDOMEN PELVIS W CONTRAST 2022-06-18 20:35:43 Darrick [facility] XR KUB 2022-06-18 15:14:00 Patito Hollingsworth [facility] XR KUB 2022-06-18 15:14:00 Patito Hollingsworth [facility] BASIC METABOLIC PANEL (NA, K, CL, CO2, GLUCOSE, BUN, CREATININE, CA) 2022-06-18 10:42:00 Benito [facility] CBC WITH DIFF 2022-06-18 10:42:00 Benito [facility] MAGNESIUM 2022-06-18 10:42:00 Benito [facility] MAGNESIUM 2022-06-18 10:42:00 Benito [facility] BASIC METABOLIC PANEL (NA, K, CL, CO2, GLUCOSE, BUN, CREATININE, CA) 2022-06-18 10:42:00 Benito [facility] CBC WITH DIFF 2022-06-18 10:42:00 Benito [facility] BLOOD CULTURE SCREEN 2022-06-17 21:48:00 Davi Redding [facility] BLOOD CULTURE SCREEN 2022-06-17 21:48:00 Davi Redding [facility] BLOOD CULTURE SCREEN 2022-06-17 21:47:00 Davi Redding [facility] BLOOD CULTURE SCREEN 2022-06-17 21:47:00 Davi Redding [facility] CBC WITH DIFF 2022-06-17 18:29:00 Darrick [facility] CBC WITH DIFF 2022-06-17 18:29:00 Darrick [facility] CBC WITHOUT DIFF 2022-06-17 05:09:00 David Rodriguez [facility] CBC WITHOUT DIFF 2022-06-17 05:09:00 David Rodriguez [facility] IR EMBOLIZATION ARTERIAL OR VENOUS HEMORRHAGE OR LYMPHATIC EXTRAVASATION 2022-06-16 18:38:01 Jeremiah [facility] IR EMBOLIZATION ARTERIAL OR VENOUS HEMORRHAGE OR LYMPHATIC EXTRAVASATION 2022-06-16 18:38:01 Jeremiah [facility] CBC WITHOUT DIFF 2022-06-16 09:04:00 Jeremiah [facility] PROTHROMBIN TIME / INR 2022-06-16 09:04:00 Benito, Same [facility] CBC WITHOUT DIFF 2022-06-16 09:04:00 Jeremiah [facility] PROTHROMBIN TIME / INR 2022-06-16 09:04:00 Benito, Same [facility] CBC WITHOUT DIFF 2022-06-16 00:07:00 Benito, [facility] PROTHROMBIN TIME / INR 2022-06-16 00:07:00 Benito, Same [facility] CBC WITHOUT DIFF 2022-06-16 00:07:00 Benito, [facility] PROTHROMBIN TIME / INR 2022-06-16 00:07:00 Benito, Same [facility] PROTHROMBIN TIME / INR 2022-06-15 21:03:00 Susanna Avila [facility] CBC WITHOUT DIFF 2022-06-15 21:03:00 Jeremiah [facility] CBC WITHOUT DIFF 2022-06-15 21:03:00 Jeremiah [facility] PROTHROMBIN TIME / INR 2022-06-15 21:03:00 Susanna Avila [facility] HB ECG ROUTINE & RHYTHM STRIP 2022-06-15 17:24:46 Patito Hollingsworth [facility] PROTHROMBIN TIME / INR 2022-06-15 09:20:00 Susanna Avila [facility] BASIC METABOLIC PANEL (NA, K, CL, CO2, GLUCOSE, BUN, CREATININE, CA) 2022-06-15 09:20:00 Jeremiah [facility] CBC WITHOUT DIFF 2022-06-15 09:20:00 Marisol Hollingsworth ra [facility] BASIC METABOLIC PANEL (NA, K, CL, CO2, GLUCOSE, BUN, CREATININE, CA) 2022-06-15 09:20:00 Jeremiah, [facility] CBC WITHOUT DIFF 2022-06-15 09:20:00 Marisol Hollingsworth ra [facility] PROTHROMBIN TIME / INR 2022-06-15 09:20:00 Susanna Avila [facility] CBC WITHOUT DIFF 2022-06-15 02:43:00 Marisol Hollingsworth ra [facility] FIBRINOGEN 2022-06-15 02:43:00 Kyle Daniels [facility] PROTHROMBIN TIME / INR 2022-06-15 02:43:00 Susanna Avila [facility] CBC WITHOUT DIFF 2022-06-15 02:43:00 Marisol Hollingsworth ra [facility] PROTHROMBIN TIME / INR 2022-06-15 02:43:00 Susanna Avila [facility] FIBRINOGEN 2022-06-15 02:43:00 Kyle Daniels [facility] EKG-12 LEAD 2022-06-14 22:50:07 Óscar Newell [facility] EKG-12 LEAD 2022-06-14 22:50:07 Óscar Newell [facility] PROTHROMBIN TIME / INR 2022-06-14 18:03:00 Patito Hollingsworth [facility] CBC WITHOUT DIFF 2022-06-14 18:03:00 Marisol Hollingsworth ra [facility] CBC WITHOUT DIFF 2022-06-14 18:03:00 Marisol Hollingsworth ra [facility] PROTHROMBIN TIME / INR 2022-06-14 18:03:00 Patito Hollingsworth [facility] URINALYSIS 2022-06-14 13:32:00 Kyle Daniels [facility] URINALYSIS 2022-06-14 13:32:00 Kyle Daniels [facility] URINE CULTURE 2022-06-14 13:29:[address] [facility] URINE CULTURE 2022-06-14 13:29:[address] [facility] RESPIRATORY PANEL BY PCR 2022-06-14 12:20:00 Elida Daniels [facility] RESPIRATORY PANEL BY PCR 2022-06-14 12:20:00 Elida Daniels [facility] ABORH CONFIRMATION (LAB ONLY) 2022-06-14 11:45:00 Kyle Daniels [facility] ABORH CONFIRMATION (LAB ONLY) 2022-06-14 11:45:00 [facility] & RHYTHM STRIP 2022-06-14 11:38:58 Kyle Daniels [facility] CBC WITH DIFF 2022-06-14 11:14:[address] [facility] MAGNESIUM 2022-06-14 11:14:00 Kyle Daniels [facility] PHOSPHORUS 2022-06-14 11:14:00 Kyle Daniels [facility] BASIC METABOLIC PANEL (NA, K, CL, CO2, GLUCOSE, BUN, CREATININE, CA) 2022-06-14 11:14:00 Jeremiah [facility] HEPATIC FUNCTION PANEL ([id number]) (ALB,T.PRO,BILI T,BU/BC,ALT,AST,ALK PHOS) 2022-06-14 11:14:00 Jeremiah [facility] ACTIVATED PARTIAL THRMPLAS PEDRO 2022-06-14 11:14:00 Jeremiah [facility] PROTHROMBIN TIME / INR 2022-06-14 11:14:00 Salena Daniels [facility] LIPID PANEL ([id number])(TOTAL CHOLESTEROL, TRIGLYCERIDES, HDL) 2022-06-14 11:14:00 Jeremiah [facility] GLYCOSYLATED HEMOGLOBIN (A1C) 2022-06-14 11:14:00 Jeremiah [facility] TROPONIN I 2022-06-14 11:14:00 Kyle Daniels [facility] PROCALCITONIN 2022-06-14 11:14:[address] [facility] N-TERMINAL PRO-BNP 2022-06-14 11:14:00 [facility] 2022-06-14 11:14:00 Kyle Daniels [facility] SEDIMENTATION RATE 2022-06-14 11:14:00 Kyle Daniels [facility] C-REACTIVE PROTEIN 2022-06-14 11:14:00 Kyle Daniels [facility] VITAMIN D, 25-OH 2022-06-14 11:14:00 Kyle Daniels [facility] MRSA / MSSA SCREEN BY PCR, TOM 2022-06-14 11:14:00 Kyle Daniels [facility] PHOSPHORUS 2022-06-14 11:14:00 Kyle Daniels [facility] MAGNESIUM 2022-06-14 11:14[facility] 2022-06-14 11:14:00 Kyle Daniels [facility] TROPONIN I 2022-06-14 11:14:00 Kyle Daniels [facility] HEPATIC FUNCTION PANEL ([id number]) (ALB,T.PRO,BILI T,BU/BC,ALT,AST,ALK PHOS) 2022-06-14 11:14:00 [facility] BASIC METABOLIC PANEL (NA, K, CL, CO2, GLUCOSE, BUN, CREATININE, CA) 2022-06-14 11:14:00 Jeremiah [facility] LIPID PANEL ([id number])(TOTAL CHOLESTEROL, TRIGLYCERIDES, HDL) 2022-06-14 11:14:00 Kyle Daniels [facility] SEDIMENTATION RATE 2022-06-14 11:14:00 Kyle Daniels [facility] CBC WITH DIFF 2022-06-14 11:14:[address] [facility] GLYCOSYLATED HEMOGLOBIN (A1C) 2022-06-14 11:14:00 Jeremiah [facility] PROTHROMBIN TIME / INR 2022-06-14 11:14:00 Salena Daniels [facility] ACTIVATED PARTIAL THRMPLAS PEDRO 2022-06-14 11:14:00 Jeremiah [facility] HB ABO GROUPING 2022-06-14 11:14:00 Kyle Daniels [facility] N-TERMINAL PRO-BNP 2022-06-14 11:14:00 Kyle Daniels [facility] VITAMIN D, 25-OH 2022-06-14 11:14:00 Kyle Daniels [facility] PROCALCITONIN 2022-06-14 11:14:[address] [facility] MRSA / MSSA SCREEN BY PCRTOM 2022-06-14 11:14:00 Kyle Daniels [facility] CT ANGIOGRAM ABDOMEN/PELVIS 2022-06-14 06:06:00 Wandy Hopper [facility] CT ANGIOGRAM ABDOMEN/PELVIS 2022-06-14 06:06:00 Wandy Hopper [facility] URINALYSIS 2022-06-14 02:34:00 Wandy Hopper [facility] URINALYSIS 2022-06-14 02:34:00 Wandy Hopper [facility] CT ABDOMEN PELVIS W CONTRAST 2022-06-14 02:25:56 Wandy Hopper [facility] CT ABDOMEN PELVIS W CONTRAST 2022-06-14 02:25:56 Wandy Hopper [facility] BLOOD CULTURE SCREEN 2022-06-14 02:21:00 Wandy Hopper [facility] BLOOD CULTURE SCREEN 2022-06-14 02:21:00 Wandy Hopper [facility] LACTIC ACID WHOLE BLOOD 2022-06-14 02:15:00 Dario Hopper [facility] LACTIC ACID WHOLE BLOOD 2022-06-14 02:15:00 Dario Hopper [facility] CBC WITH DIFF 2022-06-14 00:52:00 Wandy Hopper [facility] [facility] COMP. METABOLIC PANEL (84635) 2022-06-14 00:52:00 Wandy Hopper [facility] PROTHROMBIN TIME / INR 2022-06-14 00:52:00 Shwetha Hopper [facility] ACTIVATED PARTIAL THRMPLAS PEDRO 2022-06-14 00:52:00 Wandy Hopper [facility] RAPID INFLUENZA A/B 2022-06-14 00:52:00 Wandy Hopper [facility] COVID-19 (ID NOW RAPID TESTING) 2022-06-14 00:52:00 Wandy Hopper [facility] LAB ONLY COVID INTERPRETATION 2022-06-14 00:52:00 Wandy Hopper [facility] COMP. METABOLIC PANEL ([id number]) 2022-06-14 00:52:00 Wandy Hopper [facility] CBC WITH DIFF 2022-06-14 00:52:00 Wandy Hopper [facility] PROTHROMBIN TIME / INR 2022-06-14 00:52:00 Shwetha Hopper [facility] ACTIVATED PARTIAL THRMPLAS PEDRO 2022-06-14 00:52:00 Wandy Hopper [facility] RAPID INFLUENZA A/B 2022-06-14 00:52:00 Wandy Hopper [facility] COVID-19 (ID NOW RAPID TESTING) 2022-06-14 00:52:00 Wandy Hopper [facility] LAB ONLY COVID INTERPRETATION 2022-06-14 00:52:00 Wandy Hopper [facility] XR CHEST 1 2022-06-14 00:24:00 Wandy Hopper [facility] XR CHEST 1 2022-06-14 00:24:00 Wandy Hopper [facility] CONSENT/REFUSAL FOR DIAGNOSIS AND TREATMENT 2022-06-13 23:27:16 Doctor Unassigned, Gordo [facility] CONSENT/REFUSAL FOR DIAGNOSIS AND TREATMENT 2022-06-13 23:27:16 Doctor Unassigned, Gordo [facility] HOSPITAL ADMISSION 2022-06-13 06:01:00 Doctor Un assigned, Gordo [facility] HOSPITAL ADMISSION 2022-06-13 06:01:00 Doctor Un assigned, Gordo [facility] CT CHEST PULMONARY ANGIOGRAM 2022-06-01 16:14:46 Yen Jane [facility] CT CHEST PULMONARY ANGIOGRAM 2022-06-01 16:14:46 Yen Jane [facility] XR CHEST 1 VW 2022-06-01 14:12:12 Yen Jane [facility] XR CHEST 1 VW 2022-06-01 14:12:12 Yen Jane [facility] LIPASE 2022-06-01 13:39:00 Yen Jane [facility] TROPONIN I 2022-06-01 13:39:00 Yen Jane [facility] COMP. METABOLIC PANEL ([id number]) 2022-06-01 13:39:00 Yen Jane [facility] CBC WITH DIFF 2022-06-01 13:39:00 Yen Jane [facility] RAPID INFLUENZA A/B 2022-06-01 13:39:00 Yen Jane [facility] N-TERMINAL PRO-BNP 2022-06-01 13:39:00 Yen Jane [facility] COVID-19 (ID NOW RAPID TESTING) 2022-06-01 13:39:00 Yen Jane [facility] TROPONIN I 2022-06-01 13:39:00 Yen Jane [facility] COMP. METABOLIC PANEL ([id number]) 2022-06-01 13:39:00 Yen Jane [facility] LIPASE 2022-06-01 13:39:00 Yen Jane [facility] CBC WITH DIFF 2022-06-01 13:39:00 Yen Jane [facility] N-TERMINAL PRO-BNP 2022-06-01 13:39:00 Yen Jane [facility] RAPID INFLUENZA A/B 2022-06-01 13:39:00 Yen Jane [facility] COVID-19 (ID NOW RAPID TESTING) 2022-06-01 13:39:00 Yen Jane [facility] LAB ONLY COVID INTERPRETATION 2022-06-01 13:39:00 Yen Jane [facility] HB ECG ROUTINE & RHYTHM STRIP 2022-06-01 13:37:55 Yen Jane [facility] NOTICE OF PRIVACY PRACTICES 2022-06-01 13:27:18 Doctor Unassigned, Gordo [facility] CONSENT/REFUSAL FOR DIAGNOSIS AND TREATMENT 2022-06-01 13:27:02 Doctor Unassigned, Gordo [facility] CONSENT/REFUSAL FOR DIAGNOSIS AND TREATMENT 2022-06-01 13:27:02 Doctor Unassigned, Gordo [facility] AGREEMENTS AUTHORIZATIONS AND IRREVOCABLE ASSIGNMENTS (FORM 2001) 2022-06-01 06:01:00 Doctor Unassigned, Gordo [facility] SCANNED LAB RESULTS 2022-05-30 06:01:00 Doctor U nassigned, Gordo [facility] SCANNED LAB RESULTS 2022-05-13 05:01:00 Doctor U nassigned, Gordo [facility] SCANNED LAB RESULTS 2022-05-13 05:01:00 Doctor U nassigned, Gordo [facility] SCANNED LAB RESULTS 2022-05-05 05:01:00 Doctor U nassigned, Gordo [facility] SCANNED LAB RESULTS 2022-05-05 05:01:00 Doctor U nassigned, Gordo [facility] SCANNED LAB RESULTS 2022-04-15 05:01:00 Doctor U nassigned, Gordo [facility] SCANNED LAB RESULTS 2022-04-15 05:01:00 Doctor U nassigned, Gordo [facility] XR SHOULDER 2+ VW BILATERAL 2022-04-03 13:54:00 Adelaida Salcedo [facility] SCANNED LAB RESULTS 2022-03-27 05:01:00 Doctor U nassigned, Gordo [facility] Encounters Start Date/Time End Date/Time Encounter Type Admission Type Attending [facility] Care Facility Care Department Encounter ID Source 2024-04-25 10:00:00 2024-04-25 10:00:00 Outpatient R CONI GARCIA [facility]RISTINE [facility] [id number] [facility] 2024-03-09 00:00:00 2024-03-10 16:30:04 Telephone Coni Garcia [facility] 1.2.840.114 350.1.13.10 4.2.7.2.[id number] [facility] 2024-03-09 00:00:00 2024-03-09 10:47:08 Letter (Out) [facility] 1.2.840.114 350.1.13.10 4.2.7.2.[id number] [facility] 2024-03-02 00:00:00 2024-03-03 10:54:56 Telephone Radha [facility] 1.2.840.114 350.1.13.10 4.2.7.2.[id number] [facility] 2024-02-29 00:00:00 2024-02-29 15:53:32 Letter (Out) [facility] 1.2.840.114 350.1.13.10 4.2.7.2.[id number] [facility] 2024-02-23 10:20:00 2024-02-23 11:28:55 Outpatient R COIN GARCIA [facility]RISTINE [facility] [id number] [facility] 2024-02-23 10:20:00 2024-02-23 11:28:55 Office Visit Rosibelkarla [facility]?KEITH [facility] 1.2.840.114 350.1.13.10 4.2.7.2.[id number] [facility] 2024-02-18 09:45:00 2024-02-18 10:29:52 Outpatient ADELAIDA OWENS [facility] [id number] [facility] 2024-02-18 09:45:00 2024-02-18 10:29:52 Office Visit Morena Chapin Craig [facility] 1.2.840.114 350.1.13.10 4.2.7.2.[id number] [facility] 2024-02-16 00:00:00 2024-02-16 09:11:26 Zaynab Garcia [facility] KEVIN?[facility] 1.2840.114 350.1.13.10 4.2.7.2.[id number] [facility] 2024-02-11 09:00:00 2024-02-11 09:00:[address] [facility] [place] [id number] [facility] 2024-02-10 00:00:00 2024-02-10 18:08:43 Telephone Lashonda Presley [facility] 1.2840.114 350.1.13.10 4.2.7.2.[id number] [facility] 2024-02-10 00:00:00 2024-02-10 10:20:13 [facility] 1.2840.114 350.1.13.10 4.2.7.2.[id number] [facility] 2024-02-01 04:05:00 2024-02-01 07:35:00 Emergency X YEN JANE WAKILI [facility] ERT [id number] [facility] 2024-02-01 04:05:00 2024-02-01 07:35:00 Emergency EstherYen archibald S [facility] 1.2840.114 350.1.13.10 4.2.7.2.[id number] [facility] 2024-01-31 07:40:00 2024-01-31 09:18:00 Emergency X ABBI ALFARO SANDRA [facility] ERT [id number] [facility] 2024-01-31 07:40:00 2024-01-31 09:18:00 Emergency Abbi Alfaro Rafi [facility] 1..840.114 350.1.13.10 4.2.7.2.[id number] [facility] 2024-01-25 00:00:00 2024-01-25 00:00:00 Outpatient R CONI GARCIA [facility] [id number] [facility] 2023-11-12 00:00:00 2023-11-12 00:00:00 [facility] 1..840.114 350.1.13.10 4.2.7.2.[id number] [facility] 2023-10-09 09:30:00 2023-10-09 09:51:14 Outpatient R ADELAIDA SALCEDO CRAIG [facility] [id number] [facility] 2023-10-09 09:30:00 2023-10-09 09:51:14 Office Visit Adelaida Salcedo [facility] 1..840.114 350.1.13.10 4.2.7.2.[id number] [facility] 2023-10-09 00:00:00 2023-10-09 00:00:00 Orders Only Doctor Unassigned, Gordo [facility] 1.840.114 350.1.13.10 4.2.7.2.[id number] [facility] 2023-08-28 00:00:00 2023-08-28 00:00:00 [facility] 1.84.114 350.1.13.10 4.2.7.2.[id number] [facility] 2023-08-14 09:54:22 2023-08-14 23:59:00 Outpatient R LAHSONDA PRESLEY [facility] [id number] [facility] 2023-08-14 09:54:22 2023-08-14 23:59:00 Hospital En[facility] 1.84.114 350.1.13.10 4.2.7.2.[id number] [facility] 2023-08-14 09:30:00 2023-08-14 09:53:58 [facility] 1.84.114 350.1.13.10 4.2.7.2.[id number] [facility] 2023-08-14 09:40:00 2023-08-14 09:40:00 Outpatient R CONI GARCIA [facility] [id number] [facility] 2023-06-29 10:00:00 2023-06-29 10:50:45 [facility] [id number] [facility] 2023-06-29 10:00:00 2023-06-29 10:50:45 Office Visit Radha [facility] KEVIN?[facility] 1.84.114 350.1.13.10 4.2.7.2.[id number] [facility] 2023-06-05 00:00:00 2023-06-05 00:00:00 Orders Only Doctor Unassigned, Gordo [facility] 1.114 350.1.13.10 4.2.7.2.[id number] [facility] 2023-05-26 00:00:00 2023-05-26 00:00:00 Coni Albert [facility] KEVIN?[facility] 1..840.114 350.1.13.10 4.2.7.2.[id number] [facility] 2023-05-15 09:00:00 2023-05-15 09:15:00 Office Visit Santiago Collins [facility] 1.840.114 350.1.13.10 4.2.7.2.[id number] [facility] 2023-05-15 09:00:00 2023-05-15 09:00:00 Outpatient R SANTIAGO COLLINS [facility] [id number] [facility] 2023-05-11 11:00:00 2023-05-11 11:27:36 Outpatient R JABARI CLAYTON HOWARD [facility] [id number] [facility] 2023-05-11 11:00:00 2023-05-11 11:27:36 Office Visit Jabari Clayton [facility] KEVIN?KEITH [facility] 1.840.114 350.1.13.10 4.2.7.2.[id number] [facility] 2023-05-11 00:00:00 2023-05-11 00:00:00 Telephone Jabari Clayton [facility] KEVIN?KEITH [facility] 1.840.114 350.1.13.10 4.2.7.2.[id number] [facility] 2023-04-30 10:00:00 2023-04-30 10:30:00 Office Visit Iva Matamoros [facility] BU[facility] 1.2.840.114 350.1.13.10 4.2.7.2.[id number] [facility] 2023-04-30 10:00:00 2023-04-30 10:00:00 Outpatient R SHILOH IVA [facility] [id number] [facility] 2023-04-22 00:00:00 2023-04-22 00:00:00 Telephone Matamoros Iva ElidaYeniferRandellYenifer [facility] NAL BUILDING 1..840.114 350.1.13.10 4.2.7.2.[id number] [facility] 2023-04-21 08:49:51 2023-04-21 23:59:00 Outpatient R IVA MATAMOROS [facility] [id number] [facility] 2023-04-21 08:49:51 2023-04-21 23:59:00 Hospital Encounter Bernabe Matamorossiomara LizYenifer [facility] BU[facility] 1.2.840.114 350.1.13.10 4.2.7.2.[id number] [facility] 2023-04-13 10:20:00 2023-04-13 10:51:33 Outpatient R CONI GARCIA [facility] [id number] [facility] 2023-04-13 10:20:00 2023-04-13 10:51:33 Office Visit Radha [facility] KEVIN?[facility] 1.2.840.114 350.1.13.10 4.2.7.2.[id number] [facility] 2023-03-27 00:00:00 2023-03-27 00:00:00 Telephone Radha [facility] KEVIN?[facility] 1.2.840.114 350.1.13.10 4.2.7.2.[id number] [facility] 2023-03-12 10:45:00 2023-03-12 11:00:00 Probation Agent Visit Lab, Alek Garcia [facility] KEVIN?KEITH [facility] 1..840.114 350.1.13.10 4.2.7.2.[id number] [facility] 2023-03-12 10:00:00 2023-03-12 10:28:52 Outpatient R CONI GARCIA [facility] [id number] [facility] 2023-03-12 10:00:00 2023-03-12 10:28:52 [facility] 1..840.114 350.1.13.10 4.2.7.2.[id number] [facility] 2023-02-05 09:00:00 2023-02-05 09:13:39 Outpatient R SANTIAGO COLLINS [facility] [id number] [facility] 2023-02-05 09:00:00 2023-02-05 09:13:39 [facility] 1..840.114 350.1.13.10 4.2.7.2.[id number] [facility] 2023-01-23 00:00:00 2023-01-23 00:00:00 Telephone Radha [facility] KEVIN?[facility] 1..840.114 350.1.13.10 4.2.7.2.[id number] [facility] 2023-01-19 08:10:15 2023-01-19 23:59:00 Outpatient R CONI GARCIA [facility] [id number] [facility] 2023-01-19 08:10:15 2023-01-19 23:59:00 [facility] 1.2840.114 350.1.13.10 4.2.7.2.[id number] [facility] 2023-01-19 00:00:00 2023-01-19 00:00:00 Orders Only Doctor Unassigned, Gordo [facility] 1.2840.114 350.1.13.10 4.2.7.2.[id number] [facility] 2023-01-06 09:49:32 2023-01-06 23:59:00 Outpatient R CONI GARCIA [facility] [id number] [facility] 2023-01-06 09:49:32 2023-01-06 23:59:00 Hospital Encounter Radha [facility] 1.0.114 350.1.13.10 4.2.7.2.[id number] [facility] 2022-12-26 10:00:00 2022-12-26 11:04:02 Outpatient R LEEANN WEBBER [facility] [id number] [facility] 2022-12-26 10:00:00 2022-12-26 11:04:02 Office Visit Coni Garcia [facility] KEVIN?[facility] 1..114 350.1.13.10 4.2.7.2.[id number] [facility] 2022-12-26 00:00:00 2022-12-26 00:00:00 Telephone Radha [facility] KEVIN?[facility] 1.0.114 350.1.13.10 4.2.7.2.[id number] [facility] 2022-12-10 00:00:00 2022-12-10 00:00:00 Coni Albert [facility]ESH [facility] 1.2.114 350.1.13.10 4.2.7.2.[id number] [facility] 2022-10-29 10:00:00 2022-10-29 10:57:25 Outpatient R IVA MATAMOROS [facility] [id number] [facility] 2022-10-29 10:00:00 2022-10-29 10:57:25 Office Visit Iva Matamoros [facility] 1..114 350.1.13.10 4.2.7.2.[id number] [facility] 2022-10-29 00:00:00 2022-10-29 00:00:00 Orders Only Doctor Unassigned, Gordo [facility] 1..114 350.1.13.10 4.2.7.2.[id number] [facility] 2022-10-10 10:20:00 2022-10-10 10:20:00 Outpatient Diane GARCIA CONI [facility] [id number] [facility] 2022-10-09 00:00:00 2022-10-09 00:00:00 Telephone Audrey Jimenez [facility] 1..114 350.1.13.10 4.2.7.2.[id number] [facility] 2022-10-07 00:00:00 2022-10-07 00:00:00 Telephone Audrey Jimenez [facility] 1..114 350.1.13.10 4.2.7.2.[id number] [facility] 2022-10-06 00:00:00 2022-10-06 00:00:00 Telephone Iva Matamoros [facility] NAL BUILDING 1.840.114 350.1.13.10 4.2.7.2.[id number] [facility] 2022-10-06 00:00:00 2022-10-06 00:00:00 Orders Only Doctor Unassigned, Gordo [facility] 1..114 350.1.13.10 4.2.7.2.[id number] [facility] 2022-10-03 10:30:00 2022-10-03 10:45:00 Probation Agent Visit Lab, Alek - Sven Garcia [facility] 1.114 350.1.13.10 4.2.7.2.[id number] [facility] 2022-10-03 10:00:00 2022-10-03 10:28:41 Outpatient R CONI GARCIA [facility] [id number] [facility] 2022-10-03 10:00:00 2022-10-03 10:28:41 Office Visit Radha [facility]?KEITH [facility] 1..114 350.1.13.10 4.2.7.2.[id number] [facility] 2022-10-02 11:00:00 2022-10-02 12:00:00 Probation Agent Visit Therapist, Nishant Lynn [facility] 1..114 350.1.13.10 4.2.7.2.[id number] [facility] 2022-10-02 11:00:00 2022-10-02 11:00:00 Outpatient R NISHANT WEBSTER [facility] [id number] [facility] 2022-09-26 00:00:00 2022-09-26 00:00:00 [facility] 1.84114 350.1.13.10 4.2.7.2.[id number] [facility] 2022-09-26 00:00:00 2022-09-26 00:00:00 Case Management Nishant Webster [facility] 1.114 350.1.13.10 4.2.7.2.[id number] [facility] 2022-09-25 09:30:00 2022-09-25 09:30:00 Office Visit Santiago Collins [facility] 1.114 350.1.13.10 4.2.7.2.[id number] [facility] 2022-09-25 09:30:00 2022-09-25 09:26:24 Outpatient R SANTIAGO COLLINS [facility] [id number] [facility] 2022-09-25 00:00:00 2022-09-25 00:00:00 Orders Only Doctor Unassigned, Gordo [facility] 1.114 350.1.13.10 4.2.7.2.[id number] [facility] 2022-09-12 10:15:00 2022-09-12 10:30:00 Probation Agent Visit Lab, Coni Field [facility]?KEITH [facility] 1..114 350.1.13.10 4.2.7.2.[id number] [facility] 2022-09-12 09:40:00 2022-09-12 10:07:54 Outpatient R CONI GARCIA [facility] [id number] [facility] 2022-09-12 09:40:00 2022-09-12 10:07:54 Office Visit Radha [facility] KEVIN?KEITH [facility] 1.2.840.114 350.1.13.10 4.2.7.2.[id number] [facility] 2022-09-08 10:00:00 2022-09-08 10:00:00 Outpatient R CONI GARCIA [facility] [id number] [facility] 2022-08-26 11:30:00 2022-08-26 11:30:00 Outpatient LEEANN GIBSON [facility] [id number] [facility] 2022-08-11 10:40:00 2022-08-11 10:40:00 Outpatient R CONI GARCIA [facility] [id number] [facility] 2022-08-11 10:00:00 2022-08-11 10:15:00 Probation Agent Visit Lab, Alek Machuca [facility] 1.2.840.114 350.1.13.10 4.2.7.2.[id number] [facility] 2022-08-11 10:00:00 2022-08-11 10:00:00 [id number] 2022-08-07 11:20:00 2022-08-07 11:54:34 Outpatient R CONI GARCIA [facility] [id number] [facility] 2022-08-07 11:20:00 2022-08-07 11:54:34 Office Visit Radha [facility] KEVIN?[facility] 1.2840.114 350.1.13.10 4.2.7.2.[id number] [facility] 2022-08-01 00:00:00 2022-08-01 00:00:00 Orders Only Doctor Unassigned, Gordo [facility] 1.2840.114 350.1.13.10 4.2.7.2.[id number] [facility] 2022-07-31 13:00:00 2022-07-31 13:47:48 Outpatient R [facility] [id number] [facility] 2022-07-31 13:00:00 2022-07-31 13:47:48 [facility] 1.2840.114 350.1.13.10 4.2.7.2.[id number] [facility] 2022-07-29 00:00:00 2022-07-29 00:00:00 Telephone Rosibel [facility] 1.2840.114 350.1.13.10 4.2.7.2.[id number] [facility] 2022-07-23 00:00:00 2022-07-23 00:00:00 Telephone Iva Matamoros [facility] 1.2840.114 350.1.13.10 4.2.7.2.[id number] [facility] 2022-07-21 00:00:00 2022-07-21 00:00:00 Telephone Radha [facility] 1.2840.114 350.1.13.10 4.2.7.2.[id number] [facility] 2022-07-11 10:00:00 2022-07-11 10:32:05 Outpatient R CONI GARCIA [facility] [id number] [facility] 2022-07-11 10:00:00 2022-07-11 10:32:05 Office Visit Radha [facility] 1..840.114 350.1.13.10 4.2.7.2.[id number] [facility] 2022-07-10 15:46:00 2022-07-10 18:53:00 Emergency X GEOFF SHI [facility] E[facility] [id number] [facility] 2022-07-10 15:46:00 2022-07-10 18:53:00 Emergency Geoff Shi [facility] 1..840.114 350.1.13.10 4.2.7.2.[id number] [facility] 2022-06-30 14:00:00 2022-06-30 14:18:50 Outpatient R IVA MATAMOROS [facility] [id number] [facility] 2022-06-30 14:00:00 2022-06-30 14:18:50 Office Visit Iva Matamoros [facility] 1..840.114 350.1.13.10 4.2.7.2.[id number] [facility] 2022-06-30 00:00:00 2022-06-30 00:00:00 [facility] 1..840.114 350.1.13.10 4.2.7.2.[id number] [facility] 2022-06-27 11:00:00 2022-06-27 11:47:44 [facility] [id number] [facility] 2022-06-27 11:00:00 2022-06-27 11:47:44 Office Visit Mendy WebberOn license of [facility] KEVIN?[facility] 1.2.840.114 350.1.13.10 4.2.7.2.[id number] [facility] 2022-06-27 00:00:00 2022-06-27 00:00:00 [facility] 1.840.114 350.1.13.10 4.2.7.2.[id number] [facility] 2022-06-25 00:00:00 2022-06-25 00:00:[address] [facility] 1.84.114 350.1.13.10 4.2.7.2.[id number] [facility] 2022-06-23 00:00:00 2022-06-23 00:00:00 Transition of Care Diana Moeller HATTIE 1.84.114 350.1.13.10 4.2.7.2.[id number] [facility] 2022-06-13 17:43:00 2022-06-20 15:30:00 Inpatient X [facility] [id number] [facility] 2022-06-13 17:43:00 2022-06-20 15:30:00 Hospital Encounter [facility]andy Hopper[facility] 1.84.114 350.1.13.10 4.2.7.2.[id number] [facility] 2022-06-16 10:00:00 2022-06-16 10:00:00 Outpatient R BERNABE MATAMOROSSIOMARA [facility] [id number] [facility] 2022-06-13 00:00:00 2022-06-13 00:00:00 Travel 1.2.840.1 64075.1.1 3.104.2.7 .3.518916 .8 1.2.840.114 350.1.13.10 [address]7.3[id number] [facility] 2022-06-10 10:00:00 2022-06-10 10:00:00 Outpatient R IVA MATAMOROS [facility] [id number] [facility] 2022-06-03 16:00:00 2022-06-03 16:09:18 Outpatient R CONI GARCIA [facility] [id number] [facility] 2022-06-03 16:00:00 2022-06-03 16:09:18 Office Visit Coni Garcia 1.2.840.1 46001.1.1 3.104.2.7 .3.257900 .[id number] [facility] 2022-06-03 00:00:00 2022-06-03 00:00:00 Travel 1.2.840.1 59331.1.1 3.104.2.7 .3.354637 .8 1.2.840.114 350.1.13.10 [address].2.7.3[id number] [facility] 2022-06-01 07:32:00 2022-06-01 11:23:00 Emergency [facility] [id number] [facility] 2022-06-01 07:32:00 2022-06-01 11:23:00 Emergency Yen Jane Robert Lee 1.2.840.1 90972.1.1 3.104.2.7 .3.565811 .[id number] [facility] 2022-06-01 00:00:00 2022-06-01 00:00:00 Orders Only Doctor Unassigned, Gordo 1.2.840.1 87605.1.1 3.104.2.7 .3.962194 .[id number] [facility] 2022-06-01 00:00:00 2022-06-01 00:00:00 Travel 1.2.840.1 49206.1.1 3.104.2.7 .3.965452 .8 1.2.840.114 350.1.13.10 4.2.7.3[id number] [facility] 2022-05-30 00:00:00 2022-05-30 00:00:00 Telephone Iva Matamoros 1.2.840.1 70136.1.1 3.104.2.7 .3.050171 .[id number] [facility] 2022-05-30 00:00:00 2022-05-30 00:00:00 Orders Only Doctor Unassigned, Gordo [facility] 1.2.840.114 350.1.13.10 4.2.7.2.[id number] [facility] 2022-05-13 00:00:00 2022-05-13 00:00:00 Telephone Iva Matamoros 1.2.840.1 76858.1.1 3.104.2.7 .3.984705 .[id number] [facility] 2022-05-13 00:00:00 2022-05-13 00:00:00 Orders Only Doctor Unassigned, Gordo 1.2.840.1 54173.1.1 3.104.2.7 .3.291011 .[id number] [facility] 2022-05-05 00:00:00 2022-05-05 00:00:00 Telephone Iva MatamorosH. 1.2.840.1 44303.1.1 3.104.2.7 .3.449882 .[id number] [facility] 2022-05-05 00:00:00 2022-05-05 00:00:00 Orders Only Doctor Unassigned, Gordo 1.2.840.1 25496.1.1 3.104.2.7 .3.257664 .[id number] [facility] 2022-04-28 10:30:00 2022-04-28 10:30:00 Outpatient R IVA MATAMOROS [facility] [id number] [facility] 2022-04-22 00:00:00 2022-04-22 00:00:00 Telephone Iva MatamorosRandellYenifer 1.2.840.1 88520.1.1 3.104.2.7 .3.125725 .[id number] [facility] 2022-04-15 15:20:00 2022-04-15 16:36:16 Outpatient R IVA MATAMOROS [facility] [id number] [facility] 2022-04-15 15:20:00 2022-04-15 16:36:16 Office Visit Iva MatamorosRandellYenifer 1.2.840.1 32814.1.1 3.104.2.7 .3.558487 .[id number] [facility] 2022-04-15 00:00:00 2022-04-15 00:00:00 Orders Only Doctor Unassigned, Gordo 1.2.840.1 41413.1.1 3.104.2.7 .3.282630 .[id number] [facility] 2022-04-03 08:44:49 2022-04-03 23:59:00 Outpatient R ADELAIDA SALCEDO [facility] [id number] [facility] 2022-04-03 08:44:49 2022-04-03 23:59:00 Hospital Encounter Adelaida Salcedo 1.2.840.1 37948.1.1 3.104.2.7 .3.029147 .[id number] [facility] 2022-04-03 09:00:00 2022-04-03 09:39:40 Office Visit CollinsSantiago Terrance 1.2.840.1 57487.1.1 3.104.2.7 .3.123828 .[id number] [facility] 2022-04-03 09:00:00 2022-04-03 09:00:00 Outpatient R SANTIAGO COLLINS [facility] [id number] [facility] 2022-04-03 09:00:00 2022-04-03 09:00:00 Outpatient R SANTIAGO COLLINS [facility] [id number] [facility] 2022-04-03 00:00:00 2022-04-03 00:00:00 Travel 1.2.840.1 83138.1.1 3.104.2.7 .3.200451 .8 1.2.840.114 350.1.13.10 [address]7.3[id number] [facility] 2022-03-28 00:00:00 2022-03-28 00:00:00 Telephone Iva Matamoros 1.2.840.1 94678.1.1 3.104.2.7 .3.212188 .[id number] [facility] 2022-03-27 14:30:00 2022-03-27 14:50:27 Outpatient R IVA MATAMOROS [facility] [id number] [facility] 2022-03-27 14:30:00 2022-03-27 14:50:27 Office Visit Iva Matamoros 1.2.840.1 49330.1.1 3.104.2.7 .3.661708 .[id number] [facility] 2022-03-27 00:00:00 2022-03-27 00:00:00 Orders Only Doctor Unassigned, Gordo 1.2.840.1 50132.1.1 3.104.2.7 .3.480029 .[id number] [facility] 2022-03-05 16:00:00 2022-03-05 16:00:00 Office Visit Iva Matamoros [facility] 1.2.840.114 350.1.13.10 4.2.7.2.[id number] [facility] 2022-03-05 16:00:00 2022-03-05 15:00:11 [id number] [facility] 2022-03-05 16:00:00 2022-03-05 15:00:11 Outpatient R IVA MATAMOROS [facility] [id number] [facility] 2022-03-04 00:00:00 2022-03-04 00:00:00 Telephone Iva Matamoros [facility] 1.2.840.114 350.1.13.10 4.2.7.2.[id number] [facility] 2022-03-04 00:00:00 2022-03-04 00:00:00 Orders Only Doctor Unassigned, Gordo [facility] 1.2.840.114 350.1.13.10 4.2.7.2.[id number] [facility] 2022-02-25 09:00:00 2022-02-25 09:00:00 Outpatient DIMA NAVA SHIWAN [facility] [id number] [facility] 2022-02-14 00:00:00 2022-02-14 00:00:00 Telephone Iva Matamoros [facility] 1.2.840.114 350.1.13.10 4.2.7.2.[id number] [facility] 2022-02-13 10:00:00 2022-02-13 10:00:00 Outpatient R IVA MATAMOROS [facility] [id number] [facility] 2022-02-13 00:00:00 2022-02-13 00:00:00 Orders Only Doctor Unassigned, Gordo [facility] 1.84.114 350.1.13.10 4.2.7.2.[id number] [facility] 2022-02-11 09:45:00 2022-02-11 10:00:00 Laboratory Only Only, Adc Test Iva Matamoros [facility] 1.840.114 350.1.13.10 4.2.7.2.[id number] [facility] 2022-02-11 09:45:00 2022-02-11 09:45:00 Outpatient R IVA MATAMOROS [facility] [id number] [facility] 2022-02-11 00:00:00 2022-02-11 00:00:00 Telephone Iva MatamorosHYenifer [facility] 1.840.114 350.1.13.10 4.2.7.2.[id number] [facility] 2022-02-11 00:00:00 2022-02-11 00:00:00 Telephone Leeann Webber [facility] 1.84.114 350.1.13.10 4.2.7.2.[id number] [facility] 2022-02-04 00:00:00 2022-02-04 00:00:00 Telephone Iva MatamorosHeYnifer [facility] 1.2.840.114 350.1.13.10 4.2.7.2.[id number] [facility] 2022-01-31 00:00:00 2022-01-31 00:00:00 Orders Only Doctor Unassigned, Gordo [facility] 1.2.840.114 350.1.13.10 4.2.7.2.[id number] [facility] 2022-01-29 00:00:00 2022-01-29 00:00:00 Telephone Iva Matamoros [facility] 1.2.840.114 350.1.13.10 4.2.7.2.[id number] [facility] 2022-01-24 10:30:00 2022-01-24 10:45:00 Probation Agent Visit 2, Adc Lab Iva Matamoros [facility] 1.2.840.114 350.1.13.10 4.2.7.2.[id number] [facility] 2022-01-24 09:30:00 2022-01-24 09:55:06 Outpatient R IVA MATAMOROS [facility] [id number] [facility] 2022-01-24 09:30:00 2022-01-24 09:55:06 Office Visit Iva Matamoros [facility] 1.2.840.114 350.1.13.10 4.2.7.2.[id number] [facility] 2022-01-24 09:30:00 2022-01-24 09:30:00 Outpatient R IVA MATAMOROS [facility] [id number] [facility] 2022-01-22 00:00:00 2022-01-22 00:00:00 Telephone Iva Matamoros [facility] 1.2.840.114 350.1.13.10 4.2.7.2.[id number] [facility] 2022-01-21 00:00:00 2022-01-21 00:00:00 Orders Only Doctor Unassigned, Gordo [facility] 1.2.840.114 350.1.13.10 4.2.7.2.[id number] [facility] 2022-01-02 00:00:00 2022-01-02 00:00:00 Telephone Iva Matamoros [facility] 1.2840.114 350.1.13.10 4.2.7.2.[id number] [facility] 2022-01-01 00:00:00 2022-01-01 00:00:00 Orders Only Doctor Unassigned, Gordo [facility] 1.2.840.114 350.1.13.10 4.2.7.2.[id number] [facility] 2021-12-11 00:00:00 2021-12-11 00:00:00 Telephone Iva Matamoros [facility] 1.2840.114 350.1.13.10 4.2.7.2.[id number] [facility] 2021-12-04 09:44:06 2021-12-04 23:59:00 Outpatient R LEEANN WEBBER [facility] [id number] [facility] 2021-12-04 09:44:06 2021-12-04 23:59:00 Hospital Encounter Leeann Webber [facility] 1.2840.114 350.1.13.10 4.2.7.2.[id number] [facility] 2021-11-22 12:00:00 2021-11-22 12:30:00 Office [address] Garnica Dima [facility] 1.2.840.114 350.1.13.10 4.2.7.2.[id number] [facility] 2021-11-22 12:00:00 2021-11-22 12:00:00 Outpatient R GARNICA SARAHPIOTRDIMA SHARMA [facility] [id number] [facility] 2021-11-15 11:00:00 2021-11-15 11:15:00 Probation Agent Visit Lab, Alek [facility] 1.2.840.114 350.1.13.10 4.2.7.2.[id number] [facility] 2021-11-15 10:30:00 2021-11-15 11:07:22 [facility] 1.2.840.114 350.1.13.10 4.2.7.2.[id number] [facility] 2021-11-15 10:30:00 2021-11-15 11:07:22 Outpatient R LEEANN WEBBER [facility] [id number] [facility] 2021-11-15 11:00:00 2021-11-15 11:00:00 Outpatient R LIGIA LEEANN [facility] [id number] [facility] 2021-11-15 10:30:00 2021-11-15 10:30:00 Outpatient R LEEANN WEBBER [facility] [id number] [facility] 2021-11-12 12:15:00 2021-11-12 12:15:00 Outpatient R [facility] [id number] [facility] 2021-11-11 00:00:00 2021-11-11 00:00:00 Telephone Iva Matamoros [facility] 1.840.114 350.1.13.10 4.2.7.2.[id number] [facility] 2021-11-07 00:00:00 2021-11-07 00:00:00 Orders Only Doctor Unassigned, Gordo [facility] 1.84.114 350.1.13.10 4.2.7.2.[id number] [facility] 2021-10-21 00:00:00 2021-10-21 00:00:00 Telephone Iva Matamoros [facility] 1.840.114 350.1.13.10 4.2.7.2.[id number] [facility] 2021-10-18 12:00:00 2021-10-18 13:07:32 Outpatient R BILLY AMBRIZ [facility] [id number] [facility] 2021-10-18 12:00:00 2021-10-18 13:07:32 Office Visit Billy Ambriz [facility] 1.840.114 350.1.13.10 4.2.7.2.[id number] [facility] 2021-10-18 12:00:00 2021-10-18 13:07:32 Outpatient R BILLY AMBRIZ [facility] [id number] [facility] 2021-10-18 00:00:00 2021-10-18 00:00:00 Orders Only Doctor Unassigned, Gordo [facility] 1.840.114 350.1.13.10 4.2.7.2.[id number] [facility] 2021-10-01 00:00:00 2021-10-01 00:00:00 Orders Only Doctor Unassigned, Gordo [facility] 1.2.840.114 350.1.13.10 4.2.7.2.[id number] [facility] 2021-10-01 00:00:00 2021-10-01 00:00:00 Telephone Iva Matamoros K.HYenifer [facility] 1.2.840.114 350.1.13.10 4.2.7.2.[id number] [facility] 2021-09-02 00:00:00 2021-09-02 00:00:00 Telephone Iva MatamorosHYenifer [facility] 1.2.840.114 350.1.13.10 4.2.7.2.[id number] [facility] 2021-08-22 00:00:00 2021-08-22 00:00:00 Telephone Iva Matamoros KYeniferHYenifer [facility] 1.2.840.114 350.1.13.10 4.2.7.2.[id number] [facility] 2021-08-21 00:00:00 2021-08-21 00:00:00 Refill Jeane Driscoll A [facility] KEVIN?[facility] 1.2.840.114 350.1.13.10 4.2.7.2.[id number] [facility] 2021-08-20 00:00:00 2021-08-20 00:00:00 Case Management Jeane Driscoll [facility] KEVIN?[facility] 1.2.840.114 350.1.13.10 4.2.7.2.[id number] [facility] 2021-08-19 00:00:00 2021-08-19 00:00:00 Telephone Iva Matamoros [facility] 1.2.840.114 350.1.13.10 4.2.7.2.[id number] [facility] 2021-08-16 15:00:00 2021-08-16 23:59:00 Outpatient R JEANE DRISCOLL [facility] [id number] [facility] 2021-08-16 15:00:00 2021-08-16 23:59:00 Hospital Encounter Jeane Driscoll [facility] KEVIN?[facility] 1.2.840.114 350.1.13.10 4.2.7.2.[id number] [facility] 2021-08-16 15:15:00 2021-08-16 15:30:00 Probation Agent Visit Lab, Ang - Db Jeane Driscoll [facility] KEVIN?[facility] 1.840.114 350.1.13.10 4.2.7.2.[id number] [facility] 2021-08-16 14:15:00 2021-08-16 15:02:35 Outpatient R JEANE DRISCOLL [facility] [id number] [facility] 2021-08-16 14:15:00 2021-08-16 15:02:35 Office Visit Jeane Driscoll [facility] KEVIN?[facility] 1.840.114 350.1.13.10 4.2.7.2.[id number] [facility] 2021-08-13 00:00:00 2021-08-13 00:00:00 Telephone Iva Matamoros [facility] 1.2840.114 350.1.13.10 4.2.7.2.[id number] [facility] 2021-08-06 00:00:00 2021-08-06 00:00:00 Orders Only Doctor Unassigned, Gordo [facility] 1.2840.114 350.1.13.10 4.2.7.2.[id number] [facility] 2021-07-29 00:00:00 2021-07-29 00:00:00 Telephone Iva Matamoros [facility] 1.2.114 350.1.13.10 4.2.7.2.[id number] [facility] 2021-07-27 00:00:00 2021-07-27 00:00:00 Refill [facility] 1.840.114 350.1.13.10 4.2.7.2.[id number] [facility] 2021-07-26 00:00:00 2021-07-26 00:00:00 Refill Chicho Gamino [facility] KEVIN?[facility] 1.2840.114 350.1.13.10 4.2.7.2.[id number] [facility] 2021-07-23 13:15:00 2021-07-23 13:58:33 Outpatient R SANTIAGO COLLINS [facility] [id number] [facility] 2021-07-23 13:15:00 2021-07-23 13:58:33 Office Visit Santiago Collins [facility] 1.284.114 350.1.13.10 4.2.7.2.[id number] [facility] 2021-07-23 13:15:00 2021-07-23 13:58:33 Outpatient SANTIAGO FAULKNER [facility] [id number] [facility] 2021-07-23 00:00:00 2021-07-23 00:00:00 Refill Jeane Driscoll [facility] KEVIN?[facility] 1.2.840.114 350.1.13.10 4.2.7.2.[id number] [facility] 2021-07-23 00:00:00 2021-07-23 00:00:00 Orders Only Doctor Unassigned, Gordo [facility] 1.2.840.114 350.1.13.10 4.2.7.2.[id number] [facility] 2021-07-15 00:00:00 2021-07-15 00:00:00 Refill Jeane Driscoll A [facility] KEVIN?[facility] 1..840.114 350.1.13.10 4.2.7.2.[id number] [facility] 2021-07-09 00:00:00 2021-07-09 00:00:00 Telephone Iva Matamoros [facility] 1..840.114 350.1.13.10 4.2.7.2.[id number] [facility] 2021-07-08 00:00:00 2021-07-08 00:00:00 Orders Only Doctor Unassigned, Gordo [facility] 1.2840.114 350.1.13.10 4.2.7.2.[id number] [facility] 2021-06-27 00:00:00 2021-06-27 00:00:00 Telephone Iva MatamorosHYenifer [facility] 1.84.114 350.1.13.10 4.2.7.2.[id number] [facility] 2021-06-25 00:00:00 2021-06-25 00:00:00 Orders Only Doctor Unassigned, Gordo [facility] 1..114 350.1.13.10 4.2.7.2.[id number] [facility] 2021-06-20 11:30:00 2021-06-20 11:39:43 Outpatient R IVA MATAMOROS [facility] [id number] [facility] 2021-06-20 11:30:00 2021-06-20 11:39:43 Outpatient R IVA MATAMOROS [facility] [id number] [facility] 2021-06-20 11:05:47 2021-06-20 11:39:43 Office Visit Iva MatamorosHYenifer [facility] 1.84.114 350.1.13.10 4.2.7.2.[id number] [facility] 2021-06-17 10:42:45 2021-06-17 23:59:00 Outpatient R IVA MATAMOROS [facility] [id number] [facility] 2021-06-17 10:42:45 2021-06-17 23:59:00 Hospital Encounter Iva MatamorosHYenifer [facility] 1.84.114 350.1.13.10 4.2.7.2.[id number] [facility] 2021-06-14 00:00:00 2021-06-14 00:00:00 Jeane Reyes [facility] OFFICE BUILDING ONE 1.84.114 350.1.13.10 4.2.7.2.[id number] [facility] 2021-06-13 11:00:00 2021-06-13 11:00:00 Outpatient R [facility] [id number] [facility] 2021-06-03 00:00:00 2021-06-03 00:00:00 Telephone Iva Matamoros [facility] 1.2.840.114 350.1.13.10 4.2.7.2.[id number] [facility] 2021-05-30 00:00:00 2021-05-30 00:00:00 Orders Only Doctor Unassigned, Gordo [facility] 1.2840.114 350.1.13.10 4.2.7.2.[id number] [facility] 2021-05-13 00:00:00 2021-05-13 00:00:00 Jeane Reyes [facility] Office Building One 1.840.114 350.1.13.10 4.2.7.2.[id number] [facility] 2021-05-08 00:00:00 2021-05-08 00:00:00 Telephone Iva Matamoros [facility] Building 1.2840.114 350.1.13.10 4.2.7.2.[id number] [facility] 2021-05-07 00:00:00 2021-05-07 00:00:00 Orders Only Doctor Unassigned, Gordo [facility] 1.2840.114 350.1.13.10 4.2.7.2.[id number] [facility] 2021-04-25 10:41:40 2021-04-25 12:10:44 Office Visit Janusz Tobar, Ernesto Surg Spec Procedure [facility] 1.2.840.114 350.1.13.10 4.2.7.2.[id number] [facility] 2021-04-25 11:00:00 2021-04-25 11:00:00 Outpatient R AMADOU [facility] [id number] [facility] 2021-04-25 00:00:00 2021-04-25 00:00:00 Orders Only Doctor Unassigned, Gordo [facility] 1.2840.114 350.1.13.10 4.2.7.2.[id number] [facility] 2021-04-22 00:00:00 2021-04-22 00:00:00 Telephone Iva Matamoros [facility] 1.2.840.114 350.1.13.10 4.2.7.2.[id number] [facility] 2021-04-22 00:00:00 2021-04-22 00:00:00 Orders Only Doctor Unassigned, Gordo [facility] 1.2840.114 350.1.13.10 4.2.7.2.[id number] [facility] 2021-04-15 10:45:00 2021-04-15 10:45:00 [id number] 2021-04-15 09:54:26 2021-04-15 10:09:26 Probation Agent Visit Pocele, Ernesto [facility] Amadou [facility] 1.2.840.114 350.1.13.10 4.2.7.2.[id number] [facility] 2021-04-15 00:00:00 2021-04-15 00:00:00 Orders Only Doctor Unassigned, Gordo [facility] 1.2840.114 350.1.13.10 4.2.7.2.[id number] [facility] 2021-04-15 00:00:00 2021-04-15 00:00:00 Telephone Iva Matamoros [facility] 1.2.840.114 350.1.13.10 4.2.7.2.[id number] [facility] 2021-04-12 09:30:00 2021-04-12 09:30:00 Outpatient R [facility] [id number] [facility] 2021-04-12 09:21:25 2021-04-12 09:27:34 Nurse Visit Nurse, [facility] Surgery Faculty Amadou [facility] 1.2.840.114 350.1.13.10 4.2.7.2.[id number] [facility] 2021-04-10 09:28:16 2021-04-10 10:13:12 Nurse Visit Nurse, [facility] 1.2.840.114 350.1.13.10 4.2.7.2.[id number] [facility] 2021-04-10 09:30:00 2021-04-10 09:30:00 Outpatient R [facility] [id number] [facility] 2021-04-09 00:00:00 2021-04-09 00:00:00 Orders Only Doctor Unassigned, Gordo [facility] 1.2.840.114 350.1.13.10 4.2.7.2.[id number] [facility] 2021-04-08 11:00:00 2021-04-08 11:00:00 Outpatient R ALZWERI, [facility] [id number] [facility] 2021-04-08 09:15:00 2021-04-08 09:15:00 Outpatient R [facility] [id number] [facility] 2021-04-08 08:59:55 2021-04-08 09:14:55 Nurse Visit Nurse, [facility] Building 1.2.840.114 350.1.13.10 4.2.7.2.[id number] [facility] 2021-04-02 00:00:00 2021-04-02 00:00:00 [facility] 1.2.840.114 350.1.13.10 4.2.7.2.[id number] [facility] 2021-04-01 00:00:00 2021-04-01 00:00:00 Telephone [facility] 1.2.840.114 350.1.13.10 4.2.7.2.[id number] [facility] 2021-04-01 00:00:00 2021-04-01 00:00:00 Telephone [facility] 1.2.840.114 350.1.13.10 4.2.7.2.[id number] [facility] 2021-03-27 10:01:17 2021-03-27 10:16:17 Probation Agent Visit Ernesto Goldstein Lab Main [facility] Building 1.2.840.114 350.1.13.10 4.2.7.2.[id number] [facility] 2021-03-27 10:01:17 2021-03-27 10:16:17 Probation Agent Visit Pob, Adc [facility] 1.2.840.114 350.1.13.10 4.2.7.2.[id number] [facility] 2021-03-27 10:15:00 2021-03-27 10:15:00 Outpatient R AMADOU [facility] [id number] [facility] 2021-03-27 00:00:00 2021-03-27 00:00:00 Orders Only Doctor Unassigned, Gordo [facility] 1.2840.114 350.1.13.10 4.2.7.2.[id number] [facility] 2021-03-27 00:00:00 2021-03-27 00:00:00 Orders Only Doctor Unassigned, Gordo [facility] 1.2840.114 350.1.13.10 4.2.7.2.[id number] [facility] 2021-03-19 00:00:00 2021-03-19 00:00:00 Telephone Trinidad Mcdonald [facility] 1.2.840.114 350.1.13.10 4.2.7.2.[id number] [facility] 2021-03-19 00:00:00 2021-03-19 00:00:00 Telephone Trinidad Mcdonald [facility] 1.2.840.114 350.1.13.10 4.2.7.2.[id number] [facility] 2021-03-18 00:00:00 2021-03-18 00:00:00 Telephone Amadou [facility] 1.2.840.114 350.1.13.10 4.2.7.2.[id number] [facility] 2021-03-18 00:00:00 2021-03-18 00:00:00 [facility] 1.2.840.114 350.1.13.10 4.2.7.2.[id number] [facility] 2021-03-14 09:00:00 2021-03-14 09:00:00 [id number] 2021-03-14 00:00:00 2021-03-14 00:00:00 Telephone Iva Matamoros [facility] 1.2.840.114 350.1.13.10 4.2.7.2.[id number] [facility] 2021-03-14 00:00:00 2021-03-14 00:00:00 Telephone Iva Matamoros [facility] 1.2.840.114 350.1.13.10 4.2.7.2.[id number] [facility] 2021-03-14 00:00:00 2021-03-14 00:00:00 Orders Only Doctor Unassigned, Gordo [facility] 1..840.114 350.1.13.10 4.2.7.2.[id number] [facility] 2021-03-13 00:00:00 2021-03-13 00:00:00 [facility] 1.2.840.114 350.1.13.10 4.2.7.2.[id number] [facility] 2021-03-13 00:00:00 2021-03-13 00:00:00 Refill Amadou [facility] Building 1.2.840.114 350.1.13.10 4.2.7.2.[id number] [facility] 2021-03-12 11:04:37 2021-03-12 11:19:37 Probation Agent Visit Lab, Ang - Db Jeane Driscoll [facility] Kevin?[facility] Medical Office Building 1.2.840.114 350.1.13.10 4.2.7.2.[id number] [facility] 2021-03-12 10:00:05 2021-03-12 11:04:45 Office Visit Jeane Driscoll [facility] Kevin[facility] Building 1.2.840.114 350.1.13.10 4.2.7.2.[id number] [facility] 2021-03-12 10:45:00 2021-03-12 10:45:00 Outpatient R JEANE DRISCOLL [facility] [id number] [facility] 2021-03-11 10:45:00 2021-03-11 10:45:00 Outpatient R AMADOU [facility] [id number] [facility] 2021-03-11 10:06:04 2021-03-11 10:21:04 Probation Agent Visit Pob, Adc Lab Main Amadou [facility] Building 1.2.840.114 350.1.13.10 4.2.7.2.[id number] [facility] 2021-03-07 00:00:00 2021-03-07 00:00:00 Telephone Amadou [facility] Building 1.2.840.114 350.1.13.10 4.2.7.2.[id number] [facility] 2021-03-05 00:00:00 2021-03-05 00:00:00 Refill YamilaRoeljeffleda [facility] Office Building One 1.2.840.114 350.1.13.10 4.2.7.2.[id number] [facility] 2021-02-21 13:15:00 2021-02-21 13:15:00 Outpatient R HERRERA MCDONALDELA [facility] [id number] [facility] 2021-02-21 10:16:53 2021-02-21 10:31:53 Probation Agent Visit 2, Adc Lab Trinidad Mcdonald [facility] Building 1.2.840.114 350.1.13.10 4.2.7.2.[id number] [facility] 2021-02-20 00:00:00 2021-02-20 00:00:00 Telephone Iva Matamoros [facility] 1.2.840.114 350.1.13.10 4.2.7.2.[id number] [facility] 2021-02-12 09:44:06 2021-02-12 23:59:00 Hospital Encounter Trinidad Mcdonald [facility] 1.2.840.114 350.1.13.10 4.2.7.2.[id number] [facility] 2021-02-12 10:00:00 2021-02-12 10:00:00 Outpatient R YAMILAROELALDAIR [facility] [id number] [facility] 2021-02-11 00:00:00 2021-02-11 00:00:00 Telephone Trinidad Mcdonald [facility] 1.2.840.114 350.1.13.10 4.2.7.2.[id number] [facility] 2021-02-06 00:00:00 2021-02-06 00:00:00 Telephone SeagovilleJeane choi [facility] Office Building One 1..114 350.1.13.10 4.2.7.2.[id number] [facility] 2021-02-05 09:26:17 2021-02-05 10:10:02 Office Visit Trinidad Mcdonald [facility] Building 1..114 350.1.13.10 4.2.7.2.[id number] [facility] 2021-02-05 09:30:00 2021-02-05 09:30:00 Outpatient R TRINIDAD MCDONALD [facility] [id number] [facility] 2021-01-31 00:00:00 2021-01-31 00:00:00 Telephone Iva Matamoros [facility] Building 1.2.114 350.1.13.10 4.2.7.2.[id number] [facility] 2021-01-28 00:00:00 2021-01-28 00:00:00 Orders Only Doctor Unassigned, Gordo [facility] 1.2840.114 350.1.13.10 4.2.7.2.[id number] [facility] 2021-01-17 09:43:56 2021-01-17 23:59:00 Hospital Encounter Jeane Driscoll [facility] 1.2840.114 350.1.13.10 4.2.7.2.[id number] [facility] 2021-01-17 09:41:33 2021-01-17 09:42:00 Hospital Encounter SeagovilleJeane choi [facility] 1.2840.114 350.1.13.10 4.2.7.2.[id number] [facility] 2021-01-17 00:00:00 2021-01-17 00:00:00 Outpatient R JEANE DRISCOLL [facility] [id number] [facility] 2021-01-16 08:45:49 2021-01-16 23:59:00 Hospital Encounter Jeane Driscoll [facility] 1.840.114 350.1.13.10 4.2.7.2.[id number] [facility] 2021-01-16 00:00:00 2021-01-16 00:00:00 Outpatient R JEANE DRISCOLL [facility] [id number] [facility] 2021-01-08 00:00:00 2021-01-08 00:00:00 Case Management Jeane Driscoll [facility] Office Building One 1..114 350.1.13.10 4.2.7.2.[id number] [facility] 2021-01-08 00:00:00 2021-01-08 00:00:00 Telephone Iva Matamoros [facility] 1.84.114 350.1.13.10 4.2.7.2.[id number] [facility] 2021-01-08 00:00:00 2021-01-08 00:00:00 Orders Only Doctor Unassigned, Gordo [facility] .114 350.1.13.10 4.2.7.2.[id number] [facility] 2021-01-07 11:52:50 2021-01-07 12:12:50 Probation Agent Visit Lab, Adc Fam Pob I YamilaReol choijeffleda Scott [facility] Office Building One 1.2.840.114 350.1.13.10 4.2.7.2.[id number] [facility] 2021-01-07 10:32:55 2021-01-07 11:51:14 Office Visit Jeane Driscoll [facility] Office Building One 1.0.114 350.1.13.10 4.2.7.2.[id number] [facility] 2021-01-07 11:00:00 2021-01-07 11:00:00 Outpatient R JEANE DRISCOLL [facility] [id number] [facility] 2020-12-26 00:00:00 2020-12-26 00:00:00 Telephone Iva Matamoros [facility] Building 1.0.114 350.1.13.10 4.2.7.2.[id number] [facility] 2020-12-25 00:00:00 2020-12-25 00:00:00 Orders Only Doctor Unassigned, Gordo [facility] 1.0.114 350.1.13.10 4.2.7.2.[id number] [facility] 2020-12-04 00:00:00 2020-12-04 00:00:00 Telephone Iva Matamoros [facility] Building 1.0.114 350.1.13.10 4.2.7.2.[id number] [facility] 2020-12-04 00:00:00 2020-12-04 00:00:00 Refill Jeane Driscoll [facility] Office Building One 1.0.114 350.1.13.10 4.2.7.2.[id number] [facility] 2020-12-04 00:00:00 2020-12-04 00:00:00 Orders Only Doctor Unassigned, Gordo [facility] 1.2840.114 350.1.13.10 4.2.7.2.[id number] [facility] 2020-11-15 00:00:00 2020-11-15 00:00:00 Telephone Iva Matamoros [facility] Building 1.2.840.114 350.1.13.10 4.2.7.2.[id number] [facility] 2020-11-13 00:00:00 2020-11-13 00:00:00 Orders Only Doctor Unassigned, Gordo [facility] 1.2840.114 350.1.13.10 4.2.7.2.[id number] [facility] 2020-10-30 10:14:26 2020-10-30 11:45:20 Office Visit Jeane Driscoll [facility] Office Building One 1.2.840.114 350.1.13.10 4.2.7.2.[id number] [facility] 2020-10-30 10:30:00 2020-10-30 10:30:00 Outpatient JEANE LOCKWOOD [facility] [id number] [facility] 2020-10-19 00:00:00 2020-10-19 00:00:00 Telephone Iva Matamoros [facility] Building 1.2.840.114 350.1.13.10 4.2.7.2.[id number] [facility] 2020-10-18 10:30:00 2020-10-18 10:30:00 Outpatient JEANE LOCKWOOD [facility] [id number] [facility] 2020-10-16 00:00:00 2020-10-16 00:00:00 Orders Only Doctor Unassigned, Gordo [facility] 1.2.840.114 350.1.13.10 4.2.7.2.[id number] [facility] 2020-09-12 00:00:00 2020-09-12 00:00:00 Telephone Iva Matamoros [facility] Building 1.2840.114 350.1.13.10 4.2.7.2.[id number] [facility] 2020-09-07 00:00:00 2020-09-07 00:00:00 [facility] 1.2840.114 350.1.13.10 4.2.7.2.[id number] [facility] 2020-09-07 00:00:00 2020-09-07 00:00:[address] [facility] 1.2.840.114 350.1.13.10 4.2.7.2.[id number] [facility] 2020-09-07 00:00:00 2020-09-07 00:00:00 Orders Only Doctor Unassigned, Gordo [facility] 1.2.840.114 350.1.13.10 4.2.7.2.[id number] [facility] 2020-08-28 00:00:00 2020-08-28 00:00:00 Orders Only Doctor Unassigned, Gordo [facility] 1.2.840.114 350.1.13.10 4.2.7.2.[id number] [facility] 2020-08-09 00:00:00 2020-08-09 00:00:00 Telephone Iva Matamoros [facility] Building 1.2840.114 350.1.13.10 4.2.7.2.[id number] [facility] 2020-08-09 00:00:00 2020-08-09 00:00:00 Orders Only Doctor Unassigned, Gordo [facility] 1.2840.114 350.1.13.10 4.2.7.2.[id number] [facility] 2020-08-02 00:00:00 2020-08-02 00:00:00 Jeane Reyes [facility] Office Building One 1.2840.114 350.1.13.10 4.2.7.2.[id number] [facility] 2020-07-27 00:00:00 2020-07-27 00:00:00 Telephone Iva Matamoros [facility] 1.2840.114 350.1.13.10 4.2.7.2.[id number] [facility] 2020-07-26 09:36:19 2020-07-26 10:22:48 Office Visit [facility] 1.2840.114 350.1.13.10 4.2.7.2.[id number] [facility] 2020-07-26 09:45:00 2020-07-26 09:45:00 Outpatient R SANTIAGO COLLINS [facility] [id number] [facility] 2020-07-23 00:00:00 2020-07-23 00:00:00 Orders Only Doctor Unassigned, Gordo [facility] 1.2840.114 350.1.13.10 4.2.7.2.[id number] [facility] 2020-07-19 10:45:02 2020-07-19 11:27:48 Office Visit Santiago Collins [facility] Surgical Specialti syeda Og 1.2840.114 350.1.13.10 4.2.7.2.[id number] [facility] 2020-07-19 11:00:00 2020-07-19 11:00:00 Outpatient ADELAIDA OWENS [facility] [id number] [facility] 2020-06-27 00:00:00 2020-06-27 00:00:00 Jeane Reyes [facility] Office Building One 1..114 350.1.13.10 4.2.7.2.[id number] [facility] 2020-06-27 00:00:00 2020-06-27 00:00:00 Telephone Iva Matamoros [facility] Building 1..114 350.1.13.10 4.2.7.2.[id number] [facility] 2020-06-26 00:00:00 2020-06-26 00:00:00 Orders Only Doctor Unassigned, Gordo [facility] 1.114 350.1.13.10 4.2.7.2.[id number] [facility] 2020-06-19 11:18:29 2020-06-19 12:03:54 Office Visit Iva Matamoros [facility] Building 1.2114 350.1.13.10 4.2.7.2.[id number] [facility] 2020-06-19 11:30:00 2020-06-19 11:30:00 Outpatient BERNABE ZAZUETAIL [facility] [id number] [facility] 2020-06-04 00:00:00 2020-06-04 00:00:00 Telephone Iva MatamorosRandellYenifer [facility] Building 1.2.840.114 350.1.13.10 4.2.7.2.[id number] [facility] 2020-05-24 13:30:00 2020-05-24 13:30:00 Outpatient R SHILOH IVA [facility] [id number] [facility] 2020-05-23 00:00:00 2020-05-23 00:00:00 Telephone Jeane Driscoll [facility] Office Building One 1.840.114 350.1.13.10 4.2.7.2.[id number] [facility] 2020-05-21 00:00:00 2020-05-21 00:00:00 Orders Only Doctor Unassigned, Gordo [facility] 1.0.114 350.1.13.10 4.2.7.2.[id number] [facility] 2020-04-30 00:00:00 2020-04-30 00:00:00 Telephone Iva Matamoros [facility] Building 1.840.114 350.1.13.10 4.2.7.2.[id number] [facility] 2020-04-30 00:00:00 2020-04-30 00:00:00 Orders Only Doctor Unassigned, Gordo [facility] 1.20.114 350.1.13.10 4.2.7.2.[id number] [facility] 2020-04-26 10:06:39 2020-04-26 10:47:46 Office Visit Adelaida Salcedo [facility] Surgical Specialti [facility] 1.2.840.114 350.1.13.10 4.2.7.2.[id number] [facility] 2020-04-26 09:30:00 2020-04-26 09:30:00 Outpatient R ADELAIDA SALCEDO [facility] [id number] [facility] 2020-04-24 00:00:00 2020-04-24 00:00:00 Telephone Jeane Driscoll [facility] Office Building One .114 350.1.13.10 4.2.7.2.[id number] [facility] 2020-04-11 00:00:00 2020-04-11 00:00:00 Telephone vIa Matamoros [facility] Building 1.114 350.1.13.10 4.2.7.2.[id number] [facility] 2020-04-11 00:00:00 2020-04-11 00:00:00 Orders Only Doctor Unassigned, Gordo [facility] 1.0.114 350.1.13.10 4.2.7.2.[id number] [facility] 2020-04-10 00:00:00 2020-04-10 00:00:00 Refill Jeane Driscoll Sonia [facility] Office Building One .114 350.1.13.10 4.2.7.2.[id number] [facility] 2020-04-04 00:00:00 2020-04-04 00:00:00 Refill Jeane Driscoll [facility] Office Building One .114 350.1.13.10 4.2.7.2.[id number] [facility] 2020-03-27 00:00:00 2020-03-27 00:00:00 Telephone Iva Matamoros [facility] 1.2840.114 350.1.13.10 4.2.7.2.[id number] [facility] 2020-03-27 00:00:00 2020-03-27 00:00:00 Orders Only Doctor Unassigned, Gordo [facility] 1.2840.114 350.1.13.10 4.2.7.2.[id number] [facility] 2020-03-12 00:00:00 2020-03-12 00:00:00 Telephone Iva Matamoros [facility] 1.2840.114 350.1.13.10 4.2.7.2.[id number] [facility] 2020-03-09 00:00:00 2020-03-09 00:00:00 Orders Only Doctor Unassigned, Gordo [facility] 1.2840.114 350.1.13.10 4.2.7.2.[id number] [facility] 2020-03-01 10:00:00 2020-03-01 10:00:00 Outpatient JEANE LOCKWOOD [facility] [id number] [facility] 2020-02-16 00:00:00 2020-02-16 00:00:00 Telephone Iva MatamorosHYneifer [facility] 1.2840.114 350.1.13.10 4.2.7.2.[id number] [facility] 2020-02-16 00:00:00 2020-02-16 00:00:00 Orders Only Doctor Unassigned, Gordo [facility] 1.2840.114 350.1.13.10 4.2.7.2.[id number] [facility] 2020-01-16 00:00:00 2020-01-16 00:00:00 Orders Only Doctor Unassigned, Gordo [facility] 1.2840.114 350.1.13.10 4.2.7.2.[id number] [facility] 2020-01-12 09:30:00 2020-01-12 09:30:00 Outpatient ADELAIDA OWENS [facility] [id number] [facility] 2020-01-10 00:00:00 2020-01-10 00:00:00 Iva Rubio [facility] 1.84.114 350.1.13.10 4.2.7.2.[id number] [facility] 2019-12-19 00:00:00 2019-12-19 00:00:00 Orders Only Doctor Unassigned, Gordo [facility] 1..114 350.1.13.10 4.2.7.2.[id number] [facility] 2019-12-09 11:00:00 2019-12-09 11:00:00 Outpatient SANTIAGO FAULKNER [facility] [id number] [facility] 2019-12-09 10:12:17 2019-12-09 10:27:17 Office Visit Santiago Collins [facility] Surgical Special[facility] 1.84.114 350.1.13.10 4.2.7.2.[id number] [facility] 2019-12-06 09:26:48 2019-12-06 23:59:00 Outpatient ADELAIDA OWENS [facility] [id number] [facility] 2019-12-06 09:26:00 2019-12-06 23:59:00 Hospital Encounter Adelaida Salcedo [facility] 1.84.114 350.1.13.10 4.2.7.2.[id number] [facility] 2019-12-06 09:24:00 2019-12-06 09:25:00 Hospital Encounter Adelaida Salcedo [facility] 1.2840.114 350.1.13.10 4.2.7.2.[id number] [facility] 2019-12-01 00:00:00 2019-12-01 00:00:00 Telephone [facility]ida [facility] 1.2.114 350.1.13.10 4.2.7.2.[id number] [facility] 2019-11-28 14:45:00 2019-11-28 14:45:00 Outpatient R ADELAIDA SALCEDO [facility] [id number] [facility] 2019-11-28 14:25:46 2019-11-28 14:40:46 Office Visit Adelaida Salcedo [facility] 1.2.114 350.1.13.10 4.2.7.2.[id number] [facility] 2019-11-24 00:00:00 2019-11-24 00:00:00 Jeane Reyes [facility] Office Building One 1.114 350.1.13.10 4.2.7.2.[id number] [facility] 2019-11-19 00:00:00 2019-11-19 00:00:00 Telephone Iva Matamoros [facility] nal Building 1..114 350.1.13.10 4.2.7.2.[id number] [facility] 2019-11-18 00:00:00 2019-11-18 00:00:00 Orders Only Doctor Unassigned, Gordo [facility] 1.284.114 350.1.13.10 4.2.7.2.[id number] [facility] 2019-11-17 11:00:00 2019-11-17 11:00:00 Outpatient R IVA MATAMOROS [facility] [id number] [facility] 2019-11-17 08:56:31 2019-11-17 09:26:31 Telemedici ne Visit Iva Matamoros [facility] Building 1.2840.114 350.1.13.10 4.2.7.2.[id number] [facility] 2019-11-08 00:00:00 2019-11-08 00:00:00 Telephone Jeane Driscoll [facility] Building 1.84.114 350.1.13.10 4.2.7.2.[id number] [facility] 2019-11-07 14:04:44 2019-11-07 14:19:44 Telemedici ne Visit Santiago Collins [facility] Surgical Specialti [facility] 1.2.114 350.1.13.10 4.2.7.2.[id number] [facility] 2019-11-07 14:00:00 2019-11-07 14:00:00 Outpatient R SANTIAGO COLLINS [facility] [id number] [facility] 2019-11-07 00:00:00 2019-11-07 00:00:00 Telephone Jeane Driscoll [facility] Office Building One 1.84.114 350.1.13.10 4.2.7.2.[id number] [facility] 2019-11-03 09:16:11 2019-11-03 16:46:16 Telemedici ne Visit Jeane Driscoll [facility] 1.2.840.114 350.1.13.10 4.2.7.2.[id number] [facility] 2019-11-03 16:15:00 2019-11-03 16:15:00 Outpatient JEANE LOCKWOOD [facility] [id number] [facility] 2019-10-27 00:00:00 2019-10-27 00:00:00 Telephone Iva Matamoros [facility] 1.2.840.114 350.1.13.10 4.2.7.2.[id number] [facility] 2019-10-26 00:00:00 2019-10-26 00:00:00 Orders Only Doctor Unassigned, Gordo [facility] 1.2840.114 350.1.13.10 4.2.7.2.[id number] [facility] 2019-10-17 00:00:00 2019-10-17 00:00:00 Orders Only Doctor Unassigned, Gordo [facility] 1.2.840.114 350.1.13.10 4.2.7.2.[id number] [facility] 2019-09-22 00:00:00 2019-09-22 00:00:00 Telephone Iva Matamoros [facility] 1.2840.114 350.1.13.10 4.2.7.2.[id number] [facility] 2019 00:00:00 2019 00:00:00 Orders Only Doctor Unassigned, Gordo [facility] 1.2840.114 350.1.13.10 4.2.7.2.[id number] [facility] 2019-09-20 13:41:40 2019-09-20 23:59:00 Outpatient R JEANE DRISCOLL [facility] [id number] [facility] 2019-09-20 13:41:00 2019-09-20 23:59:00 Hospital Encounter Jeane Driscoll [facility] 1.2.840.114 350.1.13.10 4.2.7.2.[id number] [facility] 2019-09-20 12:56:28 2019-09-20 13:32:23 Office Visit Jeane Driscoll [facility] Office [facility] 1.840.114 350.1.13.10 4.2.7.2.[id number] [facility] 2019-09-20 00:00:00 2019-09-20 00:00:00 Orders Only Doctor Unassigned, Gordo [facility] 1.840.114 350.1.13.10 4.2.7.2.[id number] [facility] 2019-08-30 09:34:09 2019-08-30 11:01:39 Office Visit Jeane Driscoll [facility] 1.2840.114 350.1.13.10 4.2.7.2.[id number] [facility] 2019-08-29 00:00:00 2019-08-29 00:00:00 Telephone Iva Matamoros [facility] Building 1.2840.114 350.1.13.10 4.2.7.2.[id number] [facility] 2019-08-23 00:00:00 2019-08-23 00:00:00 Orders Only Doctor Unassigned, Gordo [facility] 1.2840.114 350.1.13.10 4.2.7.2.[id number] [facility] 2019-08-05 00:00:00 2019-08-05 00:00:00 Refill Iva Matamoros [facility] Building 1.2.840.114 350.1.13.10 4.2.7.2.[id number] [facility] 2019-04-06 00:00:00 2019-04-06 00:00:00 Telephone Iva Matamoros [facility] Building 1.2.840.114 350.1.13.10 4.2.7.2.[id number] [facility] [facility] 2019-03-15 09:32:01 2019-03-15 11:12:33 Office Visit [place] Scott [facility] Office Building One 1.2.840.114 350.1.13.10 4.2.7.2.[id number] [facility] 2019-03-10 00:00:00 2019-03-10 00:00:00 Telephone YamilaRoeljeffleda Scott [facility] Office Building One 1.2.840.114 350.1.13.10 4.2.7.2.[id number] [facility] 2019-03-08 00:00:00 2019-03-08 00:00:00 Telephone Iva Matamoros [facility] Building 1.2.840.114 350.1.13.10 4.2.7.2.[id number] [facility] 2019-03-02 09:48:06 2019-03-02 10:03:06 Probation Agent Visit [facility], [facility] Brock Lopes [facility] 1.2.840.114 350.1.13.10 4.2.7.2.[id number] [facility] 2019-03-02 00:00:00 2019-03-02 00:00:00 Orders Only Doctor Unassigned, Gordo [facility] 1.2.840.114 350.1.13.10 4.2.7.2.[id number] [facility] 2019-02-28 00:00:00 2019-02-28 00:00:00 Orders Only Doctor Unassigned, Gordo [facility] 1.2.840.114 350.1.13.10 4.2.7.2.[id number] [facility] 2019-02-24 12:30:05 2019-02-24 18:19:51 Office Visit Jeane Driscoll [facility] Office Building One 1.2.840.114 350.1.13.10 4.2.7.2.[id number] [facility] 2019-02-24 00:00:00 2019-02-24 00:00:00 Orders Only Doctor Unassigned, Gordo [facility] 1.2.840.114 350.1.13.10 4.2.7.2.[id number] [facility] 2019-02-15 00:00:00 2019-02-15 00:00:00 Orders Only Doctor Unassigned, Gordo [facility] 1.2.840.114 350.1.13.10 4.2.7.2.[id number] [facility] 2018-12-21 00:00:00 2018-12-21 00:00:00 Orders Only Doctor Unassigned, Gordo [facility] 1.2.840.114 350.1.13.10 4.2.7.2.[id number] [facility] Results Test Description Test Time Test Comments Results Resul t Comments Source CT THORAX W CONTRAST 2024-01-18 5 12:00:00 ORDERING PHYSICIAN: YEN JANE CLINICAL HISTORY: Chest wall pain COMPARISON: Chest x-ray 08/14/2023 TECHNIQUE: Helical CT images of the chest obtained with IV contrast. CTscan performed according to ALARA (As low as reasonably achievable)principles . FINDINGS: Heart size is normal. Ascending aorta measures 4 cm in diameter. There isno dissection. There is no intramural hematoma. No pericardial or pleuraleffusions are identified. Upper abdomen is unremarkable. There is no chestwall fluid collection. Bones are unremarkable. 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 There are no pulmonary infiltrates. [facility] XR THORACIC SPINE 2 VW 2024-01-18 4 13:58:54 Ordering physician:ABBI ALFARO CLINICAL HISTORY: ? ?back pain TECHNIQUE: 2 views of the thoracic spine COMPARISON: ?None FINDINGS: Visualized vertebral body heights and bony alignment appear grosslypreserved. There is likely mild degenerative changes of the midthoracicspine. The visualized lungs are clear. [facility] XR CHEST 2 VW 2023-07-21 6 20:03:10 EXAM: XR CHEST 2 VW COMPARISON: 06/13/2022 HISTORY[facility]BINAX [facility]2023-08-14 16:09:00* Test Item Value Reference Range Interpretation Comme nts POCT SARS-COV-2 ANTIGEN (anthony t code = 23928-9) Not Detected Not Detected On board controls acceptable with C Line (test code = 3574) Yes [facility] CenterTransthor[facility] echo (TTE)2023-04-21 17:59:09* Test Item Value Reference Range Interpretation Comme nts Height (test code = 8165583542) 64 in Weight (test code = 8664364626) 186 lbs Systolic BP (test code = 3521920141) 142 mmHg Diastolic BP (test code = 3068686465) 78 mmHg Heart Rate (test code = 1567422787) 79 bpm BSA (test code = 7691711140) 1.90 m2 LVIDD (test code = 3844926619) 5.10 cm Left Ventricular End Diastolic Volume by Teichholz Method (test code = 2382335) 122.1 mL IVS (test code = 2581768127) 1.06 cm Interventricular Septum Diastolic Thickness by 2D (test code = 1193553) 1.06 cm LVPWD (test code = 6963569832) 0.91 cm PW (test code = 2214716716) 0.91 cm 0.6-1.1 EF(Teich) (test code = 4551469416) 57.80 % LVIDS (test code = 6360679047) 3.50 cm Left Ventricular End Systolic Volume by Teichholz Method (test code = 0759068) 51.5 mL FS (test code = 9575604136) 31 % EF - 2D (test code = 56880256) 57.80 % LVOT diameter (test code = 5938813881) 2.07 cm LVOT area (test code = 5710639911) 3.40 cm2 ACS (test code = 9452380222) 1.43 cm Ao root diam (test code = 7156784310) 3.80 cm Aortic root (test code = 1201331185) 3.8 cm Ao root annulus (test code = 1390614663) 3.8 cm LA size (test code = 4272956493) 3.9 cm MV Peak E Yo (test code = 7751349540) 76.2 cm/s MV Peak A Yo (test code = 1200345074) 91.7 cm/s E/A ratio (test code = 2793476297) 0.83 ratio MR max PG (test code = 2569180656) 42.90 mm[Hg] MR max yo (test code = 6608257422) 327.40 cm/s Mr max yo (test code = 8695167488) 327.4 m/s MV Prop V (test code = 5705385016) 24.00 cm/s Tapse (test code = 3740623058) 1.89 cm TR Peak Yo (test code = 2517979925) 219.9 cm/s Triscuspid Valve Regurgitation Peak Gradient (test code = 5569057971) 19.3 mmHg LVOT stroke volume (test code = 6929725332) 94.70 cm3 LVOT peak yo (test code = 8128692677) 123.1 cm/s LVOT mn grad (test code = 3527314991) 3.0 mmHg AV LVOT peak gradient (test code = 6772678364) 6.1 mmHg LVOT peak VTI (test code = 0253799338) 28.2 cm LV V1 mean (test code = 2829615199) 80.00 cm/s E wave decelartion time (test code = 9555918695) 0.36 s AV regurgitation pressure 1/2 time (test code = 9035380115) 554.9 ms AI dec slope (test code = 6557184141) 217.20 cm/s2 AI max yo (test code = 6308779667) 411.50 cm/s AI max PG (test code = 7314251651) 67.70 mm[Hg] Aortic valve mean velocity (test code = 2778322300) 89.1 cm/s Ao peak yo (test code = 7082878135) 131.5 cm/s Ao VTI (test code = 3836663871) 29.8 cm AV area by cont VTI (test code = 0339729141) 3.2 cm2 AV area peak yo (test code = 6574710893) 3.1 cm2 Ao max PG (test code = 3212118263) 6.90 mm[Hg] AV peak gradient (test code = 6363865666) 6.9 mmHg AV valve area (test code = 5746634366) 3.20 cm2 AV mean gradient (test code = 1845626948) 3.6 mmHg LAV(MOD-sp4) (test code = 2005494783) 40.50 mL Radiology Study observation (narrative) (test code = 34262-3) CLARA (test code = CLARA) ?Left?Ventricle: Left ventricle size is normal. Mildly increased wall thickness. Normal wall motion. Normal systolic function with a visually estimated EF of 55 - 60%. There is impaired relaxation. Normal left ventricular filling pressure. ?Right?Ventricle: Right ventricle size is normal. Normal systolic function. TAPSE is 1.89 cm. ?Aortic?Valve: Mild transvalvular regurgitation. ?Tricuspid?Valve: Mild transvalvular regurgitation. Right ventricular systolic pressure is 15-20 mmHg. ?RA pressure is 0-5 mmHg. ?Aorta: Mildly enlarged ascending aorta 3.7cm. ?Left?Atrium: Left atrium is mildly dilated. Left VentricleLeft ventricle size is normal. Mildly increased wall thickness. Normal wall motion. Normal systolic function with a visually estimated EF of 55 - 60%. There is impaired relaxation. Normal left ventricular filling pressure.Right VentricleRight ventricle size is normal. Normal systolic function. TAPSE is 1.89 cm.Left AtriumLeft atrium is mildly dilated.Right AtriumRight atrium size is normal.IVC/SVCRA pressure is 0-5 mmHg.Mitral ValveMitral valve structure is grossly normal. Trace transvalvular regurgitation.Tricusp id ValveTricuspid valve structure is grossly normal. Mild transvalvular regurgitation. Right ventricular systolic pressure is 15-20 mmHg. RA pressure is 0-5 mmHg.Aortic ValveAortic valve opens well. Mild transvalvular regurgitation.Pulmoni c ValveNot well visualized.Ascending AortaMildly enlarged ascending aorta 3.7cm.PericardiumNo pericardial effusion.Study DetailsStudy quality experienced technical difficulty. A complete echocardiogram was performed using 2D, color flow Doppler and spectral Doppler. The apical, parasternal, subcostal and suprasternal views were obtained. [facility] METABOLIC PANEL (NA, K, CL, CO2, GLUCOSE, BUN, CREATININE, CA)2022-09-12 20:37:58* Test Item Value Reference Range Interpretation Comme nts NA (test code = 3149200096) 140 mmol/L 135-145 K (test code = 5792355829) 3.3 mmol/L 3.5-5.0 L CL (test code = 8071149252) 97 mmol/L 98-108 L CO2 TOTAL (test code = 9394809554) 35 mmol/L 23-31 H AGAP (test code = 4085782936) 8 2-16 BUN (test code = 9062583144) 15 mg/dL 7-23 GLUCOSE (test code = 8484178630) 92 mg/dL 70-110 CREATININE (test code = 1961045302) 0.92 mg/dL 0.50-1.04 CALCIUM (test code = 1724419751) 9.4 mg/dL 8.6-10.6 eGFR (test code = 3085346912) 59.5 mL/min/1.73m2 CLARA (test code = CLARA) Association of Glomerular Filtration Rate (GFR) and Staging of Kidney Disease* + --+ --+ ------+| GFR (mL/min/1.73 m2) ?| With Kidney Damage ?| ?Without Kidney Damage+ --------+ --------+ +| ?>90 ?| ?Stage one ?| ? Normal ?+ ---+ ---+ -------+| ?60-89 ?| ?Stage two ?| ? Decreased GFR ? + --+ --+ ------+| ?30-59 ?| ?Stage three ?| ? Stage three ? + --+ --+ ------+| ?15-29 ?| ?Stage four ? | ? Stage four ?+ ---+ ---+ -------+| ?<15 (or dialysis) ? ?| ?Stage five ? | ? Stage five ?+ ---+ ---+ -------+ *Each stage assumes the associated GFR level has been in effect for at least three months. ?Stages 1 to 5, with or without kidney disease, indicate chronic kidney disease. Notes: Determination of stages one and two (with eGFR >59mL/min/1.73 m2) requires estimation of kidney damage for at least three months as defined by structural or functional abnormalities of the kidney, manifested by either:Pathological abnormalities or Markers of kidney damage (including abnormalities in the composition of the blood or urine or abnormalities in imaging tests). Lab Interpretation (test code = 26410-6) Abnormal [facility] CenterMergeLocal CULTURE [id number] 03:02:04* Test Item Value Reference Range Interpretation Comme nts Blood Culture-Aerobic (test code = 07356-7) No organisms isolated No growth Previous preliminary verified result was Culture In Progress on 06/14/2022 at 0002 CSTPrevious preliminary verified result was No growth at 24 hours on 06/14/2022 at 2101 CSTPrevious preliminary verified result was No growth at 48 hours on 06/15/2022 at 2101 CSTPrevious preliminary verified result was No growth at 72 hours on 06/16/2022 at 2102 [employer] Blood Culture-Anaerobic (test code = 90701-3) No organisms isolated No growth Previous preliminary verified result was Culture In Progress on 06/14/2022 at 0002 CSTPrevious preliminary verified result was No growth at 24 hours on 06/14/2022 at 2101 CSTPrevious preliminary verified result was No growth at 48 hours on 06/15/2022 at 2101 CSTPrevious preliminary verified result was No growth at 72 hours on 06/16/2022 at 2102 [employer] Lab Interpretation (test code = 35736-3) Normal [facility] CenterBLOOD CULTURE [id number] 03:02:04* Test Item Value Reference Range Interpretation Comme nts Blood Culture-Aerobic (test code = 60564-7) No organisms isolated No growth Previous preliminary verified result was Culture In Progress on 06/14/2022 at 0002 CSTPrevious preliminary verified result was No growth at 24 hours on 06/14/2022 at 2101 CSTPrevious preliminary verified result was No growth at 48 hours on 06/15/2022 at 2102 CSTPrevious preliminary verified result was No growth at 72 hours on 06/16/2022 at 2102 [employer] Blood Culture-Anaerobic (test code = 62822-5) No organisms isolated No growth Previous preliminary verified result was Culture In Progress on 06/14/2022 at 0002 CSTPrevious preliminary verified result was No growth at 24 hours on 06/14/2022 at 2101 CSTPrevious preliminary verified result was No growth at 48 hours on 06/15/2022 at 2102 CSTPrevious preliminary verified result was No growth at 72 hours on 06/16/2022 at 2102 [employer] Lab Interpretation (test code = 79307-9) Normal [facility] CenterType and Screen - ONCE [id number] 12:12:39* Test Item Value Reference Range Interpretation Comme nts ABO & RH (test code = 20) O POSITIVE Performed at [facility] Laboratory [address] Free: [phone] No. [id number] IAT (test code = 1185) Negative Performed at [facility] Laboratory [address] Free: [phone] No. [id number] [facility] and Screen - ONCE [id number] 12:12:39* Test Item Value Reference Range Interpretation Comme nts ABO & RH (test code = 20) O POSITIVE Performed at [facility] Laboratory [address] Free: [phone] No. [id number] IAT (test code = 1185) Negative Performed at [facility] Laboratory Services [place] [address]Toll Free: [phone] No. [id number] [facility] Confirmation (Lab Only)2022-06-14 12:07:47* Test Item Value Reference Range Interpretation Comme nts ABO & RH (test code = 20) O Positive Performed at [facility] Laboratory Services - [facility] Blood [address] [address] Free: [phone] No. [id number] [facility] Confirmation (Lab Only)2022-06-14 12:07:47* Test Item Value Reference Range Interpretation Comme nts ABO & RH (test code = 20) O Positive Performed at [facility] Laboratory Services - [address] [address] Free: [phone] No. [id number] [facility] WITH [id number] 02:16:53* Test Item Value Reference Range Interpretation Comme nts WBC (test code = 6690-2) See_Comment H [Automated message] The system which generated this result transmitted reference range: 4.30 - 11.10 10*3/?L. The reference range was not used to interpret this result as normal/abnormal. RBC (test code = 789-8) See_Comment [Automated message] The system which generated this result transmitted reference range: 3.93 - 5.25 10*6/?L. The reference range was not used to interpret this result as normal/abnormal. HGB (test code = 718-7) 11.9 g/dL 11.6-15.0 HCT (test code = 4544-3) 36.7 % 35.7-45.2 MCV (test code = 787-2) 89.1 fL 80.6-95.5 MCH (test code = 785-6) 28.9 pg 25.9-32.8 MCHC (test code = 786-4) 32.4 g/dL 31.6-35.1 RDW-SD (test code = 48786-0) 45.9 fL 39.0-49.9 RDW-CV (test code = 788-0) 14.2 % 12.0-15.5 PLT (test code = 777-3) See_Comment [Automated message] The system which generated this result transmitted reference range: 166 - 358 10*3/?L. The reference range was not used to interpret this result as normal/abnormal. MPV (test code = 91959-0) 10.2 fL 9.5-12.9 NRBC/100 WBC (test code = 2727578657) See_Comment [Automated message] The system which generated this result transmitted reference range: 0.0 - 10.0 /100 WBCs. The reference range was not used to interpret this result as normal/abnormal. NRBC x10^3 (test code = 5770748444) See_Comment [Automated message] The system which generated this result transmitted reference range: 10*3/?L. The reference range was not used to interpret this result as normal/abnormal. SEG % (test code = 53474-1) 81 % 33-76 H BAND % (test code = 60077-5) 3 % 0-1 H LYMPH % (test code = 20847-5) 9 % 14-54 L MONO % (test code = 62203-8) 7 % 0-4 H ANC (test code = 753-4) 18.99 10*3/uL 1.88-7.09 H TARGET CELLS (test code = 78559-3) 2+ See_Comment A [Automated message] The system which generated this result transmitted reference range: (none). The reference range was not used to interpret this result as normal/abnormal. Lab Interpretation (test code = 51455-7) Abnormal [facility]. METABOLIC PANEL (60037)2022-06-14 01:35:33* Test Item Value Reference Range Interpretation Comme nts NA (test code = 6829075481) 135 mmol/L 135-145 K (test code = 0946210908) 4.2 mmol/L 3.5-5.0 CL (test code = 9805356293) 98 mmol/L 98-108 CO2 TOTAL (test code = 2215058939) 29 mmol/L 23-31 AGAP (test code = 0333558040) 2-16 BUN (test code = 5361343481) 17 mg/dL 7-23 GLUCOSE (test code = 6889652508) 101 mg/dL 70-110 CREATININE (test code = 7973333316) 0.73 mg/dL 0.50-1.04 TOTAL BILI (test code = 1868019432) 0.7 mg/dL 0.1-1.1 CALCIUM (test code = 7771407135) 8.7 mg/dL 8.6-10.6 T PROTEIN (test code = 0845676010) 6.8 g/dL 6.3-8.2 ALBUMIN (test code = 1382470740) 4.1 g/dL 3.5-5.0 ALK PHOS (test code = 7063575536) 71 U/L 34-122 ALTv (test code = 1742-6) 22 U/L 5-35 AST(SGOT) (test code = 1836781389) 22 U/L 13-40 eGFR (test code = 0037415212) mL/min/1.73m2 CLARA (test code = CLARA) Association of Glomerular Filtration Rate (GFR) and Staging of Kidney Disease* + + +- +| GFR (mL/min/1.73 m2) ?| With Kidney Damage ?| ?Without Kidney Damage+ ------+ ----+ ------+| ?>90 ?| ?Stage one ?| ? Normal ?+ -+ + -+| ?60-89 ?| ?Stage two ?| ? Decreased GFR ? + + +- +| ?30-59 ?| ?Stage three ?| ? Stage three ? + + +- +| ?15-29 ?| ?Stage four ? | ? Stage four ?+ -+ + -+| ?<15 (or dialysis) ? ?| ?Stage five ? | ? Stage five ?+ -+ + -+ *Each stage assumes the associated GFR level has been in effect for at least three months. ?Stages 1 to 5, with or without kidney disease, indicate chronic kidney disease. Notes: Determination of stages one and two (with eGFR >59mL/min/1.73 m2) requires estimation of kidney damage for at least three months as defined by structural or functional abnormalities of the kidney, manifested by either:Pathological abnormalities or Markers of kidney damage (including abnormalities in the composition of the blood or urine or abnormalities in imaging tests). [facility] CenterCOMP. METABOLIC PANEL (24865)2022-06-14 01:35:33* Test Item Value Reference Range Interpretation Comme nts NA (test code = 9929313369) 135 mmol/L 135-145 K (test code = 7858179206) 4.2 mmol/L 3.5-5.0 CL (test code = 9680687719) 98 mmol/L 98-108 CO2 TOTAL (test code = 6558228414) 29 mmol/L 23-31 AGAP (test code = 1703298457) 2-16 BUN (test code = 9517571709) 17 mg/dL 7-23 GLUCOSE (test code = 9408066179) 101 mg/dL 70-110 CREATININE (test code = 0390695864) 0.73 mg/dL 0.50-1.04 TOTAL BILI (test code = 4266692546) 0.7 mg/dL 0.1-1.1 CALCIUM (test code = 4930442890) 8.7 mg/dL 8.6-10.6 T PROTEIN (test code = 2616694153) 6.8 g/dL 6.3-8.2 ALBUMIN (test code = 2921479078) 4.1 g/dL 3.5-5.0 ALK PHOS (test code = 1300097113) 71 U/L 34-122 ALTv (test code = 1742-6) 22 U/L 5-35 AST(SGOT) (test code = 9416348824) 22 U/L 13-40 eGFR (test code = 4867889696) mL/min/1.73m2 CLARA (test code = CLARA) Association of Glomerular Filtration Rate (GFR) and Staging of Kidney Disease* + + +- +| GFR (mL/min/1.73 m2) ?| With Kidney Damage ?| ?Without Kidney Damage+ ------+ ----+ ------+| ?>90 ?| ?Stage one ?| ? Normal ?+ -+ + -+| ?60-89 ?| ?Stage two ?| ? Decreased GFR ? + + +- +| ?30-59 ?| ?Stage three ?| ? Stage three ? + + +- +| ?15-29 ?| ?Stage four ? | ? Stage four ?+ -+ + -+| ?<15 (or dialysis) ? ?| ?Stage five ? | ? Stage five ?+ -+ + -+ *Each stage assumes the associated GFR level has been in effect for at least three months. ?Stages 1 to 5, with or without kidney disease, indicate chronic kidney disease. Notes: Determination of stages one and two (with eGFR >59mL/min/1.73 m2) requires estimation of kidney damage for at least three months as defined by structural or functional abnormalities of the kidney, manifested by either:Pathological abnormalities or Markers of kidney damage (including abnormalities in the composition of the blood or urine or abnormalities in imaging tests). [facility] CenterACTIVATED PARTIAL THRMPLAS [id number] 01:32:12* Test Item Value Reference Range Interpretation Comme [facility] APTT Patient (test code = 3173-2) See_Comment H [Automated message] The system which generated this result transmitted reference range: 23 - 38 Seconds. The reference range was not used to interpret this result as normal/abnormal. CLARA (test code = CLARA) The [facility] patient population mean normal value for aPTT is 30 seconds. Lab Interpretation (test code = 66193-6) Abnormal [facility] CenterProthrombin Time / [id number] 01:30:11* Test Item Value Reference Range Interpretation Comme [facility] PROTIME PATIENT (test code = 5964-2) See_Comment H [Automated [employer]] The system which generated this result transmitted reference range: 12.0 - 14.7 Seconds. The reference range was not used to interpret this result as normal/abnormal. INR (test code = 6301-6) Normal INR <1.1; Warfarin Therapeutic range 2.0 to 3.0 or 2.5 to 3.5, depending upon the indications. Lab Interpretation (test code = 94271-8) Abnormal [facility] CenterTROPONIN [id number] 14:15:58* Test Item Value Reference Range Interpretation Comments TROPONIN I (test code = 9681236965) 0.009 ng/mL See_Comment [Automated message] The system which generated this result transmitted reference range: <=0.034. The reference range was not used to interpret this result as normal/abnormal. CLARA (test code = CLARA) Reference (Normal) Range (defined by the 99th percentile reference limit): <= 0.034 ng/mL Note: Cardiac troponin begins to rise 3-4 hours after the onset of ischemia. Repeat in 4-6 hours if the sample was drawn within 3-4 hours of the onset of the symptom and found normal. Diagnosis of myocardial injury is made with acute changes in cTn concentrations with at least one serial sample above the 99th percentile upper reference limit (URL), taken together with the patient's clinical presentation. Biotin has been reported to cause a negative bias, interpret results relative to patient's use of biotin. Lab Interpretation (test code = 39997-4) Normal [facility] CenterN-TERMINAL [id number] 14:12:58* Test Item Value Reference Range Interpretation Comme nts NT-proBNP (test code = 5290744949) 157 pg/mL See_Comment [Automated message] The system which generated this result transmitted reference range: <=450. The reference range was not used to interpret this result as normal/abnormal. CLARA (test code = CLARA) Biotin has been reported to cause a negative bias, interpret results relative to patient's use of biotin. Lab Interpretation (test code = 42951-0) Normal [facility] CenterCOMP. METABOLIC PANEL (22705)2022-06-01 14:04:35* Test Item Value Reference Range Interpretation Comme nts NA (test code = 2217953523) 140 mmol/L 135-145 K (test code = 3726111766) 3.4 mmol/L 3.5-5.0 L CL (test code = 7740145776) 104 mmol/L 98-108 CO2 TOTAL (test code = 5206913629) 28 mmol/L 23-31 AGAP (test code = 3855283455) 2-16 BUN (test code = 8736216236) 11 mg/dL 7-23 GLUCOSE (test code = 7812270589) 105 mg/dL 70-110 CREATININE (test code = 2286571342) 0.88 mg/dL 0.50-1.04 TOTAL BILI (test code = 2943141553) 0.7 mg/dL 0.1-1.1 CALCIUM (test code = 9257618382) 9.1 mg/dL 8.6-10.6 T PROTEIN (test code = 2456037663) 7.5 g/dL 6.3-8.2 ALBUMIN (test code = 4458138171) 4.4 g/dL 3.5-5.0 ALK PHOS (test code = 1771640965) 107 U/L 34-122 ALTv (test code = 1742-6) 18 U/L 5-35 AST(SGOT) (test code = 7516152086) 22 U/L 13-40 eGFR (test code = 7927532697) mL/min/1.73m2 CLARA (test code = CLARA) Association of Glomerular Filtration Rate (GFR) and Staging of Kidney Disease* + --+ --+ ------+| GFR (mL/min/1.73 m2) ?| With Kidney Damage ?| ?Without Kidney Damage+ --------+ --------+ +| ?>90 ?| ?Stage one ?| ? Normal ?+ ---+ ---+ -------+| ?60-89 ?| ?Stage two ?| ? Decreased GFR ? + --+ --+ ------+| ?30-59 ?| ?Stage three ?| ? Stage three ? + --+ --+ ------+| ?15-29 ?| ?Stage four ? | ? Stage four ?+ ---+ ---+ -------+| ?<15 (or dialysis) ? ?| ?Stage five ? | ? Stage five ?+ ---+ ---+ -------+ *Each stage assumes the associated GFR level has been in effect for at least three months. ?Stages 1 to 5, with or without kidney disease, indicate chronic kidney disease. Notes: Determination of stages one and two (with eGFR >59mL/min/1.73 m2) requires estimation of kidney damage for at least three months as defined by structural or functional abnormalities of the kidney, manifested by either:Pathological abnormalities or Markers of kidney damage (including abnormalities in the composition of the blood or urine or abnormalities in imaging tests). Lab Interpretation (test code = 72671-8) [facility]normal [facility] [id number] 14:04:00* Test Item Value Reference Range Interpretation Comme nts LIPASE (test code = 9330278396) 95 U/L 0-220 Lab Interpretation (test cod e = 34947-8) Normal [facility], [id number] 14:04:00* Test Item Value Reference Range Interpretation Comme nts LIPASE (test code = 5740738024) 95 U/L 0-220 Lab Interpretation (test cod e = 64206-2) Normal [facility]CBC WITH [id number] 13:57:16* Test Item Value Reference Range Interpretation Comme nts WBC (test code = 6690-2) See_Comment H [Automated messa ge] The system which generated this result transmitted reference range: 4.30 - 11.10 10*3/?L. The reference range was not used to interpret this result as normal/abnormal. RBC (test code = 789-8) See_Comment [Automated messa ge] The system which generated this result transmitted reference range: 3.93 - 5.25 10*6/?L. The reference range was not used to interpret this result as normal/abnormal. HGB (test code = 718-7) 13.8 g/dL 11.6-15.0 HCT (test code = 4544-3) 41.5 % 35.7-45.2 MCV (test code = 787-2) 88.7 fL 80.6-95.5 MCH (test code = 785-6) 29.5 pg 25.9-32.8 MCHC (test code = 786-4) 33.3 g/dL 31.6-35.1 RDW-SD (test code = 90001-3) 45.5 fL 39.0-49.9 RDW-CV (test code = 788-0) 14.1 % 12.0-15.5 PLT (test code = 777-3) See_Comment [Automated messa ge] The system which generated this result transmitted reference range: 166 - 358 10*3/?L. The reference range was not used to interpret this result as normal/abnormal. MPV (test code = 59867-1) 10.3 fL 9.5-12.9 NRBC/100 WBC (test code = 1229920610) See_Comment [Automated me ssage] The system which generated this result transmitted reference range: 0.0 - 10.0 /100 WBCs. The reference range was not used to interpret this result as normal/abnormal. NRBC x10^3 (test code = 3027896387) See_Comment [Automated messa ge] The system which generated this result transmitted reference range: 10*3/?L. The reference range was not used to interpret this result as normal/abnormal. GRAN MAT (NEUT) % (test code = 770-8) 78.1 % IMM GRAN % (test code = 3669838385) 0.20 % LYMPH % (test code = 736-9) 11.6 % MONO % (test code = 5905-5) 9.4 % EOS % (test code = 713-8) 0.5 % BASO % (test code = 706-2) 0.2 % GRAN MAT x10^3(ANC) (test code = 3032659732) 9.93 10*3/uL 1.88-7.09 H IMM GRAN x10^3 (test code = 9216644101) 0.03 10*3/uL 0.00-0.06 LYMPH x10^3 (test code = 731-0) 1.48 10*3/uL 1.32-3.29 MONO x10^3 (test code = 742-7) 1.20 10*3/uL 0.33-0.92 H EOS x10^3 (test code = 711-2) 0.07 10*3/uL 0.03-0.39 BASO x10^3 (test code = 704-7) 0.01-0.07 Lab Interpretation (test code = 34383-1) Abnormal [facility] Notes Date/Time Note Provider Source 2024-03-10 13:16:09 I approve [facility] 2024-03-09 10:35:42 Do you approve referral Tejal Stoner MA [facility] 2024-03-09 09:27:05 Fernanda Francisco is a 77 year old female , The office of Dr. Garg is calling for a new referral with [address] Pierson starting 03/11/2024 at 945, also noticed that it stated referral for ortho . Please call to verify or if any questions. Dr. Garg [address] [place] [address] Phone number: [phone] Fax number: [phone] Alhaji Ireland [facility] 2024-03-02 15:14:10 Please review, complete, and sign if appropriate. Fe Chapman LVN [facility] 2024-03-02 11:17:39 Fernanda Francisco is a 77 year old female Patient is requesting a referral to: Dept: chiropractor Reason for referral: f/u appt Duration of problem: unknown Internal / External referral: external Name of provider / location patient requesting: Dr. Garg [address] [place] [address] Phone number: [phone] Fax number: [phone] Appt already scheduled?: yes If yes, date of appt.: had an appt this morning 8, also has an upcoming appt for 8 Radha Lerner [facility] 2024-02-16 09:10:50 Images from the original note were not included. Notes: MUST BE SEEN FOR FURTHER REFILLS Last Refilled: Name from pharmacy: Omeprazole 20 MG Oral Capsule Delayed Release Will file in chart as: OMEPRAZOLE 20 mg capsule Sig: Take 1 capsule by mouth in the morning Disp: 90 capsule Refills: 0 Start: 02/16/2024 Class: eRX For: Gastroesophageal reflux disease without esophagitis Last ordered: 5 months ago (08/28/2023) by Coni Garcia MD Last refill: 11/20/2023 Rx #: [id number] Gastroenterology: Antiulcer - Proton Pump Inhibitors [id number]/16/2024 05:57 AM Protocol Details Valid encounter within last 12 months To be filled at: [facility] [address] [place] [address] Recent Visits Date Type Provider Dept 08/14/23 Office Visit Lashonda Presley PA [facility] 06/29/23 Office Visit Coni Garcia MD [facility] 04/13/23 Office Visit Coni Garcia MD [facility] 03/12/23 Office Visit Coni Garcia MD [facility] 12/26/22 Office Visit Coni Garcia MD [facility] 10/03/22 Office Visit Coni Garcia MD [facility] 09/12/22 Office Visit Coni Garcia MD [facility] Showing recent visits within past 540 days with a meds authorizing provider and meeting all other requirements Future Appointments Date Type Provider Dept 02/23/24 Appointment Coni Garcia MD [facility] Showing future appointments within next 150 days with a meds authorizing provider and meeting all other requirements Norma Ramos MA [facility] 2024-02-10 10:35:46 Please review and advise if okay to place referral. Recent Visits Date Type Provider Dept 08/14/23 Office Visit Lashonda Presley PA [facility] 06/29/23 Office Visit Coni Garcia MD [facility] 04/13/23 Office Visit Coni Garcia MD [facility] 03/12/23 Office Visit Coni Garcia MD [facility] 12/26/22 Office Visit Coni Garcia MD [facility] 10/03/22 Office Visit Coni Garcia MD [facility] 09/12/22 Office Visit Coni Garcia MD [facility] Showing recent visits within past 540 days with a meds authorizing provider and meeting all other requirements Future Appointments No visits were found meeting these conditions. Showing future appointments within next 150 days with a meds authorizing provider and meeting all other requirements Kimberly Ramirez LVN [facility] 2024-02-10 10:29:37 Patient has appointment with Dr. Salcedo on 02/11/24 for Primary osteoarthritis of both shoulders M19.011, M19.012 Bilateral shoulder pain, unspecified chronicity M25.511, M25.512 Appointment is needing a referral. Can a referral be placed? Karen Gomez [facility] 2024-02-01 07:30:07 Pt given printed and verbal discharge instructions regarding flank pain, back pain, encouraged hydration.1 Prescriptions sent to pharmacy. Pt verbalized understanding of instructions, pt awake alert oriented, resp reg unlabored, skin w/d, color appropriate for race, moves all ext well,pt encouraged to follow up with pcp. Advised to seek medical attention for new/prolonged/worsening of symptoms.No adverse reaction to meds given in ER noted upon discharge. Awake, alert oriented, resp reg unlabored, skin w/d, pt leaving amb with steady gait, in no apparent distress, accompanied by sons. Ada Gonzalez RN [facility] 2024-02-01 04:04:25 Patient arrived [facility] c/o right mid flank pain. Patient was seen here and discharged with a prescription of Robaxin. Patient states taking medication taken as needed and has had no relief. ANNE Hightower RN [facility] 2024-02-01 04:02:00 [facility] Emergency Department Note Patient Name: Fernanda Francisco Date of : 1946 77 year old female Treatment Room: TX6/TX6 Primary Care Physician: Coni Garcia Patient Escorted by: Self [9] Mode of Arrival: EMS - [facility] ([place]) [43] EMS Treatment Prior to ED Arrival: OWNER OPERATOR treatment: Medication (comment) OWNER OPERATOR treatment comments: Robaxin around 2100 Travel and Exposure Screening: Symptoms Does patient have any of these symptoms?: (not recorded) Exposure Screening Has patient had contact with someone with a communicable disease in the last month?: (not recorded) Diseases exposed to:: (not recorded) Is Patient ?: (not recorded) Exposure Date: (not recorded) Chief Complaint: Chief Complaint Patient presents with Flank Pain History of Present Illness: Fernanda Francisco is a 77 year old female who presents to the ED with right mid back pain X 2 days. No trauma or injury. No fever or chills. No cough or congestion. No lifting reported. Denies any urinary symptoms. Pain is throbbing rated at 10/10. Pt was seen in the ED earlier today and was treated symptomatically. No SOB/Dyspnea. No chest pain or discomfort. Pain improves when pt is standing up and lying down worsens pain. Palpation also worsen pain according to pt. History provided by: Patient, medical records, EMS personnel and significant other paraprofessional interpreter used: No Back Pain Location: Thoracic spine Quality: Stabbing Radiates to: Does not radiate Pain severity: Severe Pain is: Unable to specify Onset quality: Gradual Duration: 2 days Timing: Sporadic Progression: Unchanged Chronicity: New Context: not emotional stress, not falling, not jumping from heights, not lifting heavy objects, not MCA, not MVA, not occupational injury, not pedestrian accident, not physical stress, not recent illness, not recent injury and not twisting Relieved by: Nothing Worsened by: Lying down, movement, twisting and bending Associated symptoms: no abdominal pain, no abdominal swelling, no bladder incontinence, no bowel incontinence, no chest pain, no dysuria, no fever, no headaches, no leg pain, no numbness, no paresthesias, no pelvic pain, no perianal numbness, no tingling, no weakness and no weight loss Risk factors: no hx of osteoporosis, no lack of exercise, not obese, not , no recent surgery, no steroid use and no vascular disease Past Medical History/Immunizations: Past Medical History: Diagnosis Date Asthma Degenerative arthritis of right shoulder region 2019 DVT (deep venous thrombosis) Esophageal reflux Fatty liver 01/18/2021 Hyperlipidemia Hypertension Microscopic hematuria 01/08/2021 DUNCAN (obstructive sleep apnea) Positive ANNA (antinuclear antibody) 03/09/2019 Vitamin D deficiency 11/26/2017 Tetanus received in last 5 years: Unknown Allergies: Allergies Allergen Reactions Aspirin Swelling Lisinopril Other - See comments Angioedema Penicillin Swelling Tessalon [Benzonatate] Dizziness Tramadol Shortness of Breath Past Social History: Tobacco Use Never Smokeless Tobacco: Current user of smokeless tobacco; Types: Chew. Alcohol Use No. Drug Use No. Past Surgical History: Past Surgical History: Procedure Laterality Date APPENDECTOMY CHOLECYSTECTOMY HYSTERECTOMY due to fibroids and DUB INFERIOR VENA CAVA FILTER PLACEMENT Review of Systems: Review of Systems Constitutional: Negative. Negative for fever and weight loss. HENT: Negative. Eyes: Negative. Respiratory: Negative. Breasts: Negative. Cardiovascular: Negative. Negative for chest pain. Gastrointestinal: Negative. Negative for abdominal pain and bowel incontinence. Genitourinary: Negative. Negative for bladder incontinence, dysuria and pelvic pain. Musculoskeletal: Positive for back pain. Skin: Negative. Neurological: Negative. Negative for tingling, weakness, numbness, headaches and paresthesias. Psychiatric/Behavioral: Negative. All other systems reviewed and are negative. Endocrine: Endocrine negativeNegative for weight loss. Physical Exam: ED Triage Vitals [02/01/24 0406] Weight 79.8 kg (176 lb) Actual or estimated Estimated by patient/family report Height 1.626 m (5' 4") BP (!) 182/97 Pulse 77 Resp 16 Temp 36.7 ?C (98 ?F) Temp source Oral SpO2 96 % Measured on Room air Physical Exam Vitals and nursing note reviewed. Constitutional: General: She is not in acute distress. Appearance: Normal appearance. She is normal weight. She is not ill-appearing or toxic-appearing. HENT: Head: Normocephalic and atraumatic. Right Ear: Tympanic membrane, ear canal and external ear normal. Left Ear: Tympanic membrane, ear canal and external ear normal. Nose: Nose normal. No congestion or rhinorrhea. Mouth/Throat: Mouth: Mucous membranes are moist. Pharynx: Oropharynx is clear. No oropharyngeal exudate or posterior oropharyngeal erythema. Eyes: General: No scleral icterus. Right eye: No discharge. Left eye: No discharge. Extraocular Movements: Extraocular movements intact. Conjunctiva/sclera: Conjunctivae normal. Pupils: Pupils are equal, round, and reactive to light. Cardiovascular: Rate and Rhythm: Normal rate and regular rhythm. Pulses: Normal pulses. Heart sounds: Normal heart sounds. No murmur heard. Pulmonary: Effort: Pulmonary effort is normal. No respiratory distress. Breath sounds: Normal breath sounds. No stridor. No wheezing, rhonchi or rales. Chest: Chest wall: No tenderness. Abdominal: General: Abdomen is flat. Bowel sounds are normal. There is no distension. Palpations: There is no mass. Tenderness: There is no abdominal tenderness. There is no right CVA tenderness, left CVA tenderness, guarding or rebound. Hernia: No hernia is present. Musculoskeletal: General: No swelling, tenderness, deformity or signs of injury. Normal range of motion. Cervical back: Normal range of motion. No rigidity or tenderness. Right lower leg: No edema. Left lower leg: No edema. Lymphadenopathy: Cervical: No cervical adenopathy. Skin: General: Skin is warm. Capillary Refill: Capillary refill takes less than 2 seconds. Coloration: Skin is not jaundiced or pale. Findings: No bruising, erythema, lesion or rash. Neurological: General: No focal deficit present. Mental Status: She is alert and oriented to person, place, and time. Mental status is at baseline. Cranial Nerves: No cranial nerve deficit. Sensory: No sensory deficit. Motor: No weakness. Coordination: Coordination normal. Gait: Gait normal. Deep Tendon Reflexes: Reflexes normal. Psychiatric: Mood and Affect: Mood normal. Thought Content: Thought content normal. Judgment: Judgment normal. Radiology: CT THORAX W CONTRAST Final Result ORDERING PHYSICIAN: YEN JANE CLINICAL HISTORY: Chest wall pain COMPARISON: Chest x-ray 08/14/2023 TECHNIQUE: Helical CT images of the chest obtained with IV contrast. CT scan performed according to ALARA (As low as reasonably achievable) principles. FINDINGS: Heart size is normal. Ascending aorta measures 4 cm in diameter. There is no dissection. There is no intramural hematoma. No pericardial or pleural effusions are identified. Upper abdomen is unremarkable. There is no chest wall fluid collection. Bones are unremarkable. Multilevel degenerative disc disease is seen in the spine. There are no pulmonary infiltrates. IMPRESSION No acute cardiopulmonary disease Bibasilar atelectasis No pulmonary infiltrates or pleural effusions Mild ectasia of the ascending aorta, with the diameter of 4.0 cm No subcutaneous fluid collections. No visible chest wall abnormalities RL: [id number] Lab Results: Lab Results URINALYSIS - Abnormal Result Value Ref Range APPEARANCE Clear Clear COLOR Yellow Yellow PH 6.0 4.8 - 8.0 SP GRAVITY 1.017 1.003 - 1.030 GLU U QUAL Normal Normal BLOOD Negative Negative KETONES Negative Negative PROTEIN Negative Negative UROBILIN Normal Normal BILIRUBIN Negative Negative NITRITE Negative Negative LEUK BRENT Negative Negative RBC/HPF 0 0 - 3 HPF WBC/HPF 0 0 - 5 HPF BACTERIA Negative Negative MUCOUS Slight (*) Negative LPF SQ EPITH 1 HPF CBC WITH DIFF - Abnormal WBC 7.73 4.30 - 11.10 10*3/?L RBC 4.76 3.93 - 5.25 10*6/?L HGB 14.3 11.6 - 15.0 g/dL HCT 44.6 35.7 - 45.2 % MCV 93.7 80.6 - 95.5 fL MCH 30.0 25.9 - 32.8 pg MCHC 32.1 31.6 - 35.1 g/dL RDW-SD 45.3 39.0 - 49.9 fL RDW-CV 13.1 12.0 - 15.5 % PLT 209 166 - 358 10*3/?L MPV 11.2 9.5 - 12.9 fL NRBC/100 WBC 0.0 0.0 - 10.0 /100 WBCs NRBC x10 3 <0.01 10*3/?L GRAN MAT (NEUT) % 77.3 % IMM GRAN % 0.30 % LYMPH % 14.0 % MONO % 7.8 % EOS % 0.5 % BASO % 0.1 % GRAN MAT x10 3 (ANC) 5.98 1.88 - 7.09 10*3/uL IMM GRAN x10 3 <0.03 0.00 - 0.06 10*3/uL LYMPH x10 3 1.08 (*) 1.32 - 3.29 10*3/uL MONO x10 3 0.60 0.33 - 0.92 10*3/uL EOS x10 3 0.04 0.03 - 0.39 10*3/uL BASO x10 3 <0.03 0.01 - 0.07 10*3/uL BASIC METABOLIC PANEL (NA, K, CL, CO2, GLUCOSE, BUN, CREATININE, CA) NA 139 135 - 145 mmol/L K 3.6 3.5 - 5.0 mmol/L CL 104 98 - 108 mmol/L CO2 TOTAL 31 23 - 31 mmol/L AGAP 4 2 - 16 BUN 13 7 - 23 mg/dL GLUCOSE 99 70 - 110 mg/dL CREATININE 0.72 0.50 - 1.04 mg/dL CALCIUM 9.1 8.6 - 10.6 mg/dL eGFR 86.2 mL/min/1.73m2 Orders and Treatments: Orders Placed This Encounter Procedures CT THORAX W CONTRAST Urinalysis Cbc with Diff Basic Metabolic Panel (NA, K, CL, CO2, GLUCOSE, BUN, CREATININE, CA) Orders Placed This Encounter Medications FENTanyl PF (SUBLIMAZE (PF)) injection 50 mcg ondansetron (ZOFRAN (PF)) injection 4 mg iopamidol (ISOVUE 370-500 mL) injection 75 mL HYDROcodone-acetaminophen 10-325 mg tablet First Provider Eval: ED Events Date/Time Event User Comments 02/01/24411 Medical Screening Begins YEN JANE MD -- 02/01/24411 First Provider Evaluation YEN JANE MD -- ED COURSE Diagnosis/Impression as of 02/01/24 07 Low back pain with sciatica, sciatica laterality unspecified, unspecified back pain laterality, unspecified chronicity Mid back pain on right side Procedures: Procedures MDM: Medical Decision Making Amount and/or Complexity of Data Reviewed Labs: ordered. Radiology: ordered. Risk Prescription drug management. Parenteral controlled substances. Flowsheet Documentation: Scoring Tools: No data recorded Disposition/Condition: ED Disposition ED Disposition Disch - Home Condition Stable Comment -- Discharge Medications: Patient's Medications START taking these medications HYDROCODONE-ACETAMINOPHEN 10-325 MG TABLET Take 1 tablet by mouth every 6 (six) hours as needed for Pain (scale 7-10) for up to 7 days. Indications: acute pain CONTINUE taking these medications which have NOT CHANGED ACETAMINOPHEN 325 MG TABLET Take by mouth every 6 (six) hours as needed. ALBUTEROL 2.5 MG /3 ML (0.083 %) NEBULIZER SOLUTION Inhale 3 mL every 4 (four) hours as needed for Wheezing or Shortness of Breath. Via nebulizer ALBUTEROL 90 MCG/ACTUATION INHALER INHALE 2 PUFFS BY MOUTH EVERY 6 HOURS NEEDED FOR WHEEZING OR SHORTNESS OF BREATH APIXABAN 5 MG TABLET Take 1 tablet by mouth in the morning and 1 tablet in the evening. Indications: coronary artery ectasia AZITHROMYCIN 250 MG TABLET Take 500 mg PO day 1, then 250 mg PO days 2 to 5 CHOLECALCIFEROL, VITAMIN D3, 50 MCG (2,000 UNIT) CAPSULE Take 1 capsule by mouth in the morning. Take with food. FLUTICASONE-SALMETEROL 500-50 MCG/DOSE INHALATION DISK INHALE 1 DOSE BY MOUTH EVERY 12 HOURS METHOCARBAMOL 750 MG TABLET Take 1 tablet by mouth every 6 (six) hours as needed for Pain (scale 1-3). METHYLPREDNISOLONE (MEDROL, MESSI,) 4 MG TABLETS Take by mouth SEE-INSTRUCTIONS. follow package directions NIFEDIPINE ER 60 MG TABLET Take 1 tablet by mouth in the morning. OMEPRAZOLE 20 MG CAPSULE Take 1 capsule by mouth in the morning PREGABALIN (LYRICA) 25 MG CAPSULE Take 1 capsule by mouth every evening for 7 days, then 1 capsule by mouth twice a day for 7 days, then 1 capsule every morning and two capsules every evening ROSUVASTATIN 40 MG TABLET Take 1 tablet by mouth at bedtime. START taking Modified Medications as Prescribed No medications on file STOP taking these medications No medications on file Follow-up: Contact information for follow-up Coni Garcia MD Specialty: FM-FAMILY MEDICINE Relationship: PCP - General [facility] [address] [id number] [facility] 2024-01-31 09:18:26 PT D/C home. GCS15, VS stable, no ataxia noted. Given one prescription and D/C paperwork. Pt pushed in wheelchair by family at time of discharge. Pt educated on back pain, med usage, follow up care, s/s worsening condition. Pt verbalized understanding. Dotty Etienne RN [facility] 2024-01-31 07:36:45 Patient states: "I woke up yesterday and it was really hurting me. It's just on one side (right). It's not letting me sit stand, lay or sleep" Denies injury. Marleen Hall RN [facility] 2024-01-31 07:29:00 [facility] Emergency Department Note Patient Name: Fernanda Francisco Date of : 1946 77 year old female Treatment Room: [facility] FT03/[id number] Primary Care Physician: Coni Garcia Patient Escorted by: Family [5] Mode of Arrival: Personal means [1] EMS Treatment Prior to ED Arrival: OWNER OPERATOR treatment: Medication (comment) OWNER OPERATOR treatment comments: tylenol at 0630 Travel and Exposure Screening: Symptoms Does patient have any of these symptoms?: (not recorded) Exposure Screening Has patient had contact with someone with a communicable disease in the last month?: (not recorded) Diseases exposed to:: (not recorded) Is Patient ?: (not recorded) Exposure Date: (not recorded) Chief Complaint: Chief Complaint Patient presents with Back Pain History of Present Illness: The patient presents from home for evaluation for lower thoracic back pain that started yesterday morning when she woke up. She reports she was fine when she went to bed the other night. She denies any injury or trauma. She has tried some muscle rub as well as Tylenol and reports is not helping with her pain. She states her pain is worse with bending and movement and with movement of her right arm. No change in her pain with breathing or coughing. No chest pain or pressure. Here for evaluation. Past Medical History/Immunizations: Past Medical History: Diagnosis Date Asthma Degenerative arthritis of right shoulder region 2019 DVT (deep venous thrombosis) Esophageal reflux Fatty liver 01/18/2021 Hyperlipidemia Hypertension Microscopic hematuria 01/08/2021 DUNCAN (obstructive sleep apnea) Positive ANNA (antinuclear antibody) 03/09/2019 Vitamin D deficiency 11/26/2017 Allergies: Allergies Allergen Reactions Aspirin Swelling Lisinopril Other - See comments Angioedema Penicillin Swelling Tessalon [Benzonatate] Dizziness Tramadol Shortness of Breath Past Social History: Tobacco Use Never Smokeless Tobacco: Current user of smokeless tobacco; Types: Chew. Alcohol Use No. Drug Use No. Past Surgical History: Past Surgical History: Procedure Laterality Date APPENDECTOMY CHOLECYSTECTOMY HYSTERECTOMY due to fibroids and DUB INFERIOR VENA CAVA FILTER PLACEMENT Review of Systems: Review of Systems Constitutional: Negative for chills and fever. Respiratory: Negative for cough and shortness of breath. Cardiovascular: Negative for chest pain. Gastrointestinal: Negative for abdominal pain and vomiting. Genitourinary: Negative for dysuria. Musculoskeletal: Positive for back pain. Negative for neck pain and neck stiffness. Skin: Negative for wound. Neurological: Negative for dizziness. Psychiatric/Behavioral: Negative for agitation. Endocrine: Negative for goiter. Physical Exam: ED Triage Vitals [01/31/24 0738] Weight 79.8 kg (176 lb) Actual or estimated Estimated by patient/family report Height 1.626 m (5' 4") BP (!) 148/82 Pulse 81 Resp 16 Temp 37.2 ?C (99 ?F) Temp source Oral SpO2 100 % Measured on Room air Physical Exam Vitals and nursing note reviewed. Constitutional: Appearance: Normal appearance. HENT: Head: Normocephalic and atraumatic. Cardiovascular: Rate and Rhythm: Normal rate. Pulses: Normal pulses. Pulmonary: Effort: Pulmonary effort is normal. No respiratory distress. Abdominal: General: There is no distension. Palpations: There is no mass. Musculoskeletal: Cervical back: Neck supple. Comments: Tenderness to the lower thoracic spine as well as the right paraspinal muscles of the lower thoracic area. No deformity or step-offs are noted. Skin: General: Skin is warm and dry. Neurological: General: No focal deficit present. Mental Status: She is alert and oriented to person, place, and time. Radiology: XR THORACIC SPINE 2 VW Final Result Ordering physician:ABBI ALFARO CLINICAL HISTORY: back pain TECHNIQUE: 2 views of the thoracic spine COMPARISON: None FINDINGS: Visualized vertebral body heights and bony alignment appear grossly preserved. There is likely mild degenerative changes of the midthoracic spine. The visualized lungs are clear. IMPRESSION Likely mild degenerative changes of the midthoracic spine. RL: [id number] AFC: [id number] End of report Lab Results: Lab Results - No data to display EKG: If EKG completed, see Procedure Note. Orders and Treatments: Orders Placed This Encounter Procedures XR THORACIC SPINE 2 VW Orders Placed This Encounter Medications methocarbamoL (ROBAXIN) tablet 1,000 mg HYDROcodone-acetaminophen (NORCO 5) 5-325 mg tablet 1 tablet methocarbamoL 750 mg tablet First Provider Eval: ED Events Date/Time Event User Comments 01/31/24737 Medical Screening Begins ABBI ALFARO DO -- 01/31/24737 First Provider Evaluation ABBI ALFARO DO -- ED COURSE Diagnosis/Impression as of 01/31/24 0916 Acute right-sided thoracic back pain Procedures: Procedures MDM: Medical Decision Making The patient presents from home for evaluation for lower thoracic back pain that started yesterday morning when she woke up. She reports she was fine when she went to bed the other night. She denies any injury or trauma. She has tried some muscle rub as well as Tylenol and reports is not helping with her pain. She states her pain is worse with bending and movement and with movement of her right arm. No change in her pain with breathing or coughing. Vital signs are stable in the ER. She has tenderness to the lower vertebral bodies of the thoracic spine as well as the corresponding right paraspinal muscles of that area. Will obtain x-ray to eval for possible fracture. Will give the patient pain medication here in the ER. Anticipate discharge home later. 0916 -the patient is doing well here in the ER. The x-ray of her back shows degenerative changes but no acute fractures. She is feeling better after the pain medication here in the ER. She remained stable here in the ER and is okay for discharge home with PCP follow-up. Problems Addressed: Acute right-sided thoracic back pain: acute illness or injury Amount and/or Complexity of Data Reviewed Radiology: ordered and independent interpretation performed. Decision-making details documented in ED Course. Risk OTC drugs. Prescription drug management. Flowsheet Documentation: Scoring Tools: No data recorded Disposition/Condition: ED Disposition ED Disposition Disch - Home Condition Stable Comment -- Discharge Medications: Patient's Medications START taking these medications METHOCARBAMOL 750 MG TABLET Take 1 tablet by mouth every 6 (six) hours as needed for Pain (scale 1-3). CONTINUE taking these medications which have NOT CHANGED ACETAMINOPHEN 325 MG TABLET Take by mouth every 6 (six) hours as needed. ALBUTEROL 2.5 MG /3 ML (0.083 %) NEBULIZER SOLUTION Inhale 3 mL every 4 (four) hours as needed for Wheezing or Shortness of Breath. Via nebulizer ALBUTEROL 90 MCG/ACTUATION INHALER INHALE 2 PUFFS BY MOUTH EVERY 6 HOURS NEEDED FOR WHEEZING OR SHORTNESS OF BREATH APIXABAN 5 MG TABLET Take 1 tablet by mouth in the morning and 1 tablet in the evening. Indications: coronary artery ectasia AZITHROMYCIN 250 MG TABLET Take 500 mg PO day 1, then 250 mg PO days 2 to 5 CHOLECALCIFEROL, VITAMIN D3, 50 MCG (2,000 UNIT) CAPSULE Take 1 capsule by mouth in the morning. Take with food. FLUTICASONE-SALMETEROL 500-50 MCG/DOSE INHALATION DISK INHALE 1 DOSE BY MOUTH EVERY 12 HOURS METHYLPREDNISOLONE (MEDROL, MESSI,) 4 MG TABLETS Take by mouth SEE-INSTRUCTIONS. follow package directions NIFEDIPINE ER 60 MG TABLET Take 1 tablet by mouth in the morning. OMEPRAZOLE 20 MG CAPSULE Take 1 capsule by mouth in the morning PREGABALIN (LYRICA) 25 MG CAPSULE Take 1 capsule by mouth every evening for 7 days, then 1 capsule by mouth twice a day for 7 days, then 1 capsule every morning and two capsules every evening ROSUVASTATIN 40 MG TABLET Take 1 tablet by mouth at bedtime. START taking Modified Medications as Prescribed No medications on file STOP taking these medications No medications on file Follow-up: Electronically signed by: Abbi Alfaro DO 01/31/2416 [facility] 2023-11-12 07:45:51 Last Refilled: Disp Refills Start End JAIRON Fluticasone-Salmeterol 500-50 mcg/dose inhalation disk 60 Each 11 12/26/2022 -- -- Sig: Inhale 1 Puff every 12 (twelve) hours. DOSE INCREASE Sent to pharmacy as: fluticasone 500 mcg-salmeteroL 50 mcg/dose blistr powdr for inhalation (ADVAIR) Class: eRX Route: Inhalation Order: [id number] Date/Time Signed: 12/26/2022 10:55 E-Prescribing Status: Receipt confirmed by pharmacy (12/26/2022 10:55 AM CDT) Recent Visits Date Type Provider Dept 08/14/23 Office Visit Lashonda Presley PA [facility] 06/29/23 Office Visit Coni Garcia MD [facility] 04/13/23 Office Visit Coni Garcia MD [facility] 03/12/23 Office Visit Coni Garcia MD [facility] 12/26/22 Office Visit Coni Garcia MD [facility] 10/03/22 Office Visit Coni Garcia MD [facility] 09/12/22 Office Visit Coni Garcia MD [facility] 08/07/22 Office Visit Coni Garcia MD [facility] 07/31/22 Office Visit Coni Garcia MD [facility] 07/11/22 Office Visit Coni Garcia MD [facility] Showing recent visits within past 540 days with a meds authorizing provider and meeting all other requirements Future Appointments No visits were found meeting these conditions. Showing future appointments within next 150 days with a meds authorizing provider and meeting all other requirements Kateryna Vick [facility] 2023-08-28 08:50:45 Last Refilled: omeprazole 20 mg unwpkch63/9/2023----Sig: Take 1 capsule by mouth in the morning.Sent to pharmacy as: omeprazole 20 mg capsule,delayed release (PRILOSEC)Class: eRXRoute: OralOrder: [id number]/Time Signed: 12/26/2022 10:55E-Prescribing Status: Receipt confirmed by pharmacy (12/26/2022 10:55 AM CDT) Notes: Recent Visits Date Type Provider Dept 08/14/23 Office Visit Lashonda Presley PA [facility] 06/29/23 Office Visit Coni Garcia MD [facility] 04/13/23 Office Visit Coni Garcia MD [facility] 03/12/23 Office Visit Coni Garcia MD [facility] 12/26/22 Office Visit Coni Garcia MD [facility] 10/03/22 Office Visit Coni Garcia MD [facility] 09/12/22 Office Visit Coni Garcia MD [facility] 08/07/22 Office Visit Coni Garcia MD [facility] 07/31/22 Office Visit Coni Garcia MD [facility] 07/11/22 Office Visit Coni Garcia MD [facility] Showing recent visits within past 540 days with a meds authorizing provider and meeting all other requirements Future Appointments No visits were found meeting these conditions. Showing future appointments within next 150 days with a meds authorizing provider and meeting all other requirements [employer] Mary Mccormick RN [facility] 2023-03-31 08:38:01 Formatting of this n ote is different from the original. Images from the original note were not included. Contacted patient. Patient notified of results per provider. Verbalized understanding. Coni Garcia MD 03/12/2023 9:24 PM CDT Please let Ms. Francisco know that the labs we did today are all within normal limits. I am waiting for the SPEP. She does not have anemia. Hopefully the gabapentin will help at bedtime. Dr. Radha Pereira MD 03/12/2023 9:24 PM CDT Please let Ms. Francisco know that the labs we did today are all within normal limits. I am waiting for the SPEP. She does not have anemia. Hopefully the gabapentin will help at bedtime. Dr. Radha Pereiraally signed by Kimberly Ramirez LVN at 03/31/2023 8:38 AM CDT Kimberly Ramirez LVN [facility] 2023-03-27 15:53:23 Formatting of this n ote might be different from the original. Fernanda Francisco is a 76 year old female Pt returning call in regards to lab results. Please advise [phone] (home) Oksana Mcconnell [facility] 2023-03-12 10:45:00 Formatting of this n ote is different from the original. Images from the original note were not included. Venipuncture collection performed by clean technique on the left anticubitus. Total of 1 attempts were made. Slight pressure and a bandage/dressing were applied to the site(s). The patient experienced no complications. The following specimens were processed according to instructions and sent to [facility] laboratories per lab order on today: LT BLUE SST 3 RED LAV 1 PPT DK GREEN (LiHep) DK GREEN (SodH) MART DK BLUE (K2) DK BLUE (S) ACD Blood Culture NIPT/NTD T [facility]
[2024-03-10] MEDS ORDERED: ACETAMINOPHEN 500 MG TAB ONE (19:42)
[2024-03-10] MEDS ORDERED: MORPHINE 4 MG/ML SYR ONE (19:43)
[2024-03-10] MEDS ORDERED: LIDOCAINE 4% PATCH ONE (20:03)
--- NOTE | 2024-03-10 21:04 | RAD REPORT ---
EXAM DESCRIPTION: Ribs Right - 03/10/2024 8:03 pm CLINICAL HISTORY: rib pain COMPARISON: Chest Single View dated 06/15/2017 TECHNIQUE: Right ribs, 2 views. FINDINGS: No displaced rib fracture is evident. No aggressive rib lesion. No underlying pneumothorax, effusion, infiltrate or pulmonary contusion. IMPRESSION: Negative right rib series.
--- NOTE | 2024-03-10 21:07 | EDPHYS ---
Physician Documentation [facility] Name: Shanna Francisco Age: 78 yrs Sex: Female : 1945 Arrival Date: 03/10/2024 Time: 18:47 Bed 13 Private MD: ED Physician Yan Constantino HPI: 03/10 19:17 This 78 yrs old Black Female presents to ER via Ambulatory with complaints of Back Pain.ec2 19:17 Patient arrives today for evaluation of right rib pain. No falls injuries or trauma. ec2 Has been ongoing for 3 weeks, has been taking [place].. Historical: - Allergies: 19:07 Aspirin; dd2 19:07 PENICILLINS; dd2 19:07 Tramadol HCl; dd2 19:07 Lisinopril; dd2 - PMHx: 19:07 Hypertensive disorder; dd2 - PSHx: 19:07 Total abdominal hysterectomy; Cholecystectomy; dd2 - Immunization history:: Adult Immunizations unknown. - Infectious Disease History:: Denies. - Social history:: Smoking status: Patient denies any tobacco usage or history of. ROS: 19:17 Constitutional: as per hpi ec2 Exam: 19:17 Constitutional: GEN: NAD Head: atraumatic Eyes: EOMI Ears: External ears are ec2 normal. CV: regular rate LUNGS: no respiratory distress ABD: non-distended SKIN: no evidence of rashes MSK: Right lateral chest wall TTP without deformities or crepitus appreciated. 21:07 Neuro: Motor: moves all fours, Sensation: is normal, no obvious gross deficits, sb4 Vital Signs: 19:05 BP 161 / 85; Pulse 75; Resp 17; Temp 97.1; Pulse Ox 98% ; dd2 19:22 BP 154 / 92; Pulse 65; Resp 17; Temp 98; Pulse Ox 98% on R/A; Pain 10/10; rg5 20:55 BP 172 / 95; Pulse 89; Resp 17; Pulse Ox 97% ; Pain 4/10; rg5 21:20 BP 155 / 89; Pulse 70; Resp 17; Temp 98; Pulse Ox 97% on R/A; Pain 3/10; rg5 19:22 Pain Scale: Adult rg5 20:55 Pain Scale: Adult rg5 21:20 Pain Scale: Adult rg5 [place] Coma Score: 19:22 Eye Response: spontaneous(4). Motor Response: obeys commands(6). Verbal Response: rg5 oriented(5). Total: 15. MDM: 18:51 Patient medically screened. ec2 19:17 Data reviewed: vital signs. ED course: Patient arrives today for right lateral back ec2 pain. Examination remarkable for reproducible TTP. With the patient medication for pain, obtain rib series. Suspect contusion versus costochondritis, doubt fracture. Additionally does not have any pinpoint tenderness on the C/T/L-spine so doubt spinal cord pathology.. 03/10 19:17 Order name: Ribs Right XRAY; Complete Time: 21:05 ec2 Administered Medications: 19:30 Drug: morphine IM 4 mg IM once Route: IM; Site: right deltoid; rg5 21:00 Follow up: Response: No adverse reaction; Pain is decreased rg5 19:30 Drug: Acetaminophen PO 1000 mg PO once Route: PO; rg5 21:00 Follow up: Response: No adverse reaction; Pain is decreased rg5 20:16 Drug: Lidoderm Topical Patch 5 % (700 mg/patch) 1 patches Topical once; leave on for 12 rg5 hours; cover most painful area; may cut into smaller pieces {Note: lower back .} Route: Topical; Site: affected area; 21:00 Follow up: Response: No adverse reaction; Pain is decreased rg5 Disposition Summary: 03/10/24 21:06 Discharge Ordered Notes: Location: Home sb4 Condition: Stable sb4 Diagnosis - Back Pain sb4 Followup: ec2 - With: Private Physician - When: - Reason: Re-evaluation by your physician Discharge Instructions: - Discharge Summary Sheet ec2 - Acute Back Pain, Adult ec2 Forms: - Patient Portal Instructions sb4 - Leadership Thank You Letter sb4 Prescriptions: - methocarbamol 500 mg Oral tablet - take 1 tablet ORAL route 4 times per day; 15 tablet; Refills: 0, Product ec2 Selection Permitted Addendum: 03/14/2024 16:09 I agree with the assessment and plan of care. e c2 Signatures: Dispatcher [employer] Michelle Celeste PA-C PA-C sb4 Yan Constantnio MD MD ec2 Bob Leiva RN RN rg5 ADAMA CAROLINA RN RN dd2
--- NOTE | 2024-03-10 21:07 | ER ---
Nurse's Notes [facility] Name: Shanna Francisco Age: 78 yrs Sex: Female : 1945 Arrival Date: 03/10/2024 Time: 18:47 Bed 13 Private MD: Diagnosis: Back Pain Presentation: 03/10 19:05 Chief complaint: Patient states: pt c/o rt middle and rt lower back pain x 3 weeks. dd2 Coronavirus screen: At this time, the client does not indicate any symptoms associated with coronavirus-19. Ebola Screen: No symptoms or risks identified at this time. Initial Sepsis Screen: Does the patient meet any 2 criteria? No. Patient's initial sepsis screen is negative. Does the patient have a suspected source of infection? No. Patient's initial sepsis screen is negative. Risk Assessment: Do you want to hurt yourself or someone else? Patient reports no desire to harm self or others. Onset of symptoms is unknown. 19:05 Method Of Arrival: Ambulatory dd2 19:05 Acuity: LUKE 3 dd2 Triage Assessment: 19:07 General: Appears uncomfortable, Behavior is calm, cooperative. Pain: Complains of pain dd2 in back rt middle and rt lower. Musculoskeletal: Circulation, motion, and sensation intact. Historical: - Allergies: 19:07 Aspirin; dd2 19:07 PENICILLINS; dd2 19:07 Tramadol HCl; dd2 19:07 Lisinopril; dd2 - PMHx: 19:07 Hypertensive disorder; dd2 - PSHx: 19:07 Total abdominal hysterectomy; Cholecystectomy; dd2 - Immunization history:: Adult Immunizations unknown. - Infectious Disease History:: Denies. - Social history:: Smoking status: Patient denies any tobacco usage or history of. Screenin:22 [facility] ED Fall Risk Assessment (Adult) History of falling in the last 3 months, rg5 including since admission No falls in past 3 months (0 pts) Confusion or Disorientation No (0 pts) Intoxicated or Sedated No (0 pts) Impaired Gait No (0 pts) Mobility Assist Device Used Yes (1 pt) Altered Elimination No (0 pt) Score/Fall Risk Level 0 - 2 = Low Risk Oriented to surroundings, Maintained a safe environment, Educated pt \T\ family on fall prevention, incl call for assistance when getting out of bed, Hourly rounding (assess needs \T\ fall precautionary measures) done. Abuse screen: Denies threats or abuse. Nutritional screening: No deficits noted. Tuberculosis screening: No symptoms or risk factors identified. Assessment: 19:22 General: Appears in no apparent distress. uncomfortable, Behavior is calm, cooperative, rg5 appropriate for age. Pain: Complains of pain in back Pain does not radiate. Pain currently is 10 out of 10 on a pain scale. Quality of pain is described as aching, Pain began 1 day ago. Neuro: Level of Consciousness is awake, alert, obeys commands, Oriented to person, place, time, situation. Cardiovascular: Denies chest pain, Heart tones S1 S2 Capillary refill < 3 seconds Patient's skin is warm and dry. Respiratory: Airway is patent Trachea midline Respiratory effort is even, unlabored, Respiratory pattern is regular, symmetrical. GI: Abdomen is round Abd is soft and non tender. : No signs and/or symptoms were reported regarding the genitourinary system. EENT: No deficits noted. Derm: Skin is intact, Skin is dry, Skin is normal, Skin temperature is warm. Musculoskeletal: Range of motion: intact in all extremities. 20:55 Reassessment: Patient and/or family updated on plan of care and expected duration. Pain rg5 level reassessed. Patient is alert, oriented x 3, equal unlabored respirations, skin warm/dry/pink. Patient states feeling better. Patient states symptoms have improved. Vital Signs: 19:05 BP 161 / 85; Pulse 75; Resp 17; Temp 97.1; Pulse Ox 98% ; dd2 19:22 BP 154 / 92; Pulse 65; Resp 17; Temp 98; Pulse Ox 98% on R/A; Pain 10/10; rg5 20:55 BP 172 / 95; Pulse 89; Resp 17; Pulse Ox 97% ; Pain 4/10; rg5 21:20 BP 155 / 89; Pulse 70; Resp 17; Temp 98; Pulse Ox 97% on R/A; Pain 3/10; rg5 19:22 Pain Scale: Adult rg5 20:55 Pain Scale: Adult rg5 21:20 Pain Scale: Adult rg5 [place] Coma Score: 19:22 Eye Response: spontaneous(4). Motor Response: obeys commands(6). Verbal Response: rg5 oriented(5). Total: 15. ED Course: 18:50 Patient arrived in ED. ec2 18:51 Yan Constantino MD is Attending Physician. ec2 19:07 Triage completed. dd2 19:07 Arm band placed on left wrist. Patient placed in an exam room, on a stretcher, on pulse dd2 oximetry. 19:21 Bob Leiva, RN is Primary Nurse. rg5 19:22 Patient has correct armband on for positive identification. Bed in low position. Call rg5 light in reach. Side rails up X 1. 19:22 No provider procedures requiring assistance completed. rg5 20:04 Ribs Right XRAY In Process Unspecified. EDMS 20:14 [facility] sb[facility] 21:21 Provided Education on: post er care. rg5 21:21 Patient did not have IV access during this emergency room visit. rg5 Administered Medications: 19:30 Drug: morphine IM 4 mg IM once Route: IM; Site: right deltoid; rg5 21:00 Follow up: Response: No adverse reaction; Pain is decreased rg5 19:30 Drug: Acetaminophen PO 1000 mg PO once Route: PO; rg5 21:00 Follow up: Response: No adverse reaction; Pain is decreased rg5 20:16 Drug: Lidoderm Topical Patch 5 % (700 mg/patch) 1 patches Topical once; leave on for 12 rg5 hours; cover most painful area; may cut into smaller pieces {Note: lower back .} Route: Topical; Site: affected area; 21:00 Follow up: Response: No adverse reaction; Pain is decreased rg5 Medication: 19:22 VIS not applicable for this client. rg5 Outcome: 21:06 Discharge ordered by . sb4 21:21 Discharged to home ambulatory, rg5 21:21 Condition: stable 21:21 Discharge instructions given to patient, family, Instructed on discharge instructions, follow up and referral plans. Demonstrated understanding of instructions, Prescriptions given X 1, 21:22 Patient left the ED. rg5 Signatures: Dispatcher [employer] Michelle Celeste PA-C PA-C sb4 Yan Constantino MD MD ec2 Bob Leiva, RN RN rg5 ADAMA CAROLINA RN RN dd2
[2024-03-10 21:40] VITALS: TEMP 98
[2024-03-10 21:42] VITALS: O2SAT 97
[2024-03-10 21:44] VITALS: BP 155/89
== END 2024-03-10 21:22 | disposition home or self-care (01) ==
LOC: ER 18:47
DX: M54.9 Dorsalgia, unspecified (principal); I10 Essential (primary) hypertension; Z88.0 Allergy status to penicillin; Z88.5 Allergy status to narcotic agent; Z88.8 Allergy status to other drugs, medicaments and biological substances
CPT/HCPCS: 71100; 96372; 99284; J2001